=== PATIENT | female | born 1955 | race Caucasian/White ===

== ENCOUNTER 2016-12-09 11:54 | Inpatient (IN) | payer BC ==
[~2016-12-09] VITALS: Ht 157.5 cm; Wt 55.0 kg
[2016-12-09] VITALS (17 sets, daily range): BP systolic 83–100; BP diastolic 49–64; PULSE 83–104; RESP 16–24; TEMP 97.9; Ht 157.5 cm; Wt 55.0 kg
[~2016-12-09 11:54] MED LIST: APIX5TAB PO; HYDR-902 PO; LORA0.5T PO; OMEP20CA16 PO; ONDA4TAB14 PO; TRAM-40 PO
--- NOTE | 2016-12-09 12:12 | ERA ---
ER Documentation Chief Complaint Date/Time DATE: 12/09/16 TIME: 12:12 Chief Complaint SENT BY PMD FOR LOW H&H.Pt ON CHEMO FOR PELVIC CA. ROS All systems reviewed and are negative except as per history of present illness. Medications Home Meds Active Scripts Ondansetron (Ondansetron Odt) 4 Mg Tab.rapdis, 4 MG PO Q6H Y for NAUSEA AND/OR VOMITING, #30 TAB Prov:MALCOLM DÍAZ MD 05/05/16 Hydrocodone/Acetaminophen ([place] 10-325 Tablet) 1 Each Tablet, 1 TAB PO Q6H Y for PAIN, #12 TAB Prov:MALCOLM DÍAZ MD 05/05/16 Apixaban* (Eliquis*) 5 Mg Tablet, 5 MG PO BID for 30 Days, TAB 5 Refills Prov:AMNA LUCERO 04/29/16 Reported Medications Tramadol Hcl* (Ultram*) 50 Mg Tablet, 50 MG PO Q6H Y for PAIN, TAB 05/05/16 Omeprazole* (Omeprazole*) 20 Mg Capsule.dr, 20 MG PO BID, #60 CAP 05/05/16 Lorazepam* (Lorazepam*) 0.5 Mg Tablet, 0.5 MG PO HS Y for ANXIETY, TAB 04/20/16 Allergies Allergies: Coded Allergies: No Known Allergy (Unverified , 09/23/16) PMhx/Soc History of Surgery: Yes (PORT-A-CATH PLACEMENT) Anesthesia Reaction: No Hx Neurological Disorder: No Hx Respiratory Disorders: No Hx Cardiac Disorders: No Hx Psychiatric Problems: No Hx Miscellaneous Medical Probl: Yes ( CERVICAL CANCER ) Hx Alcohol Use: No Hx Substance Use: No Hx Tobacco Use: No Physical Exam Vitals Vital Signs Date Time Temp Pulse Resp B/P Pulse Ox O2 Delivery O2 Flow Rate FiO2 12/09/16 12:02 99.1 121 18 79/50 97 Physical Exam Const: [] Head: Atraumatic Eyes: Normal Conjunctiva ENT: Normal External Ears, Nose and Mouth. Neck: Full range of motion..~ No meningismus. Resp: Clear to auscultation bilaterally Cardio: Regular rate and rhythm, no murmurs Abd: Soft, non tender, non distended. Normal bowel sounds Skin: No petechiae or rashes Back: No midline or flank tenderness Ext: No cyanosis, or edema Neur: Awake and alert Psych: Normal Mood and Affect ILEANA CASON MD Dec 09, 2016 12:12
[2016-12-09] MEDS ORDERED: SOD CHLORIDE 0.9% 250 ML IV ONE (12:15)
[2016-12-09] MEDS ORDERED: SOD CHLORIDE 0.9% 1,000 ML IV ONE (12:30)
[2016-12-09 12:48] LABS: ADD SCAN DIFF NO
[2016-12-09 13:01] LABS: ABNORMAL IP MESSAGE 1; HEMATOCRIT 13.5 % (37.0-47.0); MEAN CORPUSCULAR HEMOGLOBIN 40.5 pg (29.0-33.0); MEAN CORPUSCULAR HGB CONC 33.3 g/dl (32.0-37.0); MEAN CORPUSCULAR VOLUME 121.6 fl (82.0-101.0); RED BLOOD COUNT 1.11 10^6/ul (4.20-5.40); RED CELL DISTRIBUTION WIDTH 16.1 % (11.5-14.5)
[2016-12-09 13:04] LABS: MEAN PLATELET VOLUME 13.8 fl (7.4-10.4)
[2016-12-09 13:08] LABS: HEMOGLOBIN 4.5 g/dl (12.0-16.0); PLATELET COUNT 5 10^3/UL (140-415)
[2016-12-09 13:17] LABS: INR 1.99; PROTIME 22.8 Sec (12.2-14.2); PT RATIO 1.8
[2016-12-09 13:18] LABS: PARTIAL THROMBOPLASTIN TIME 39.8 Sec (25.0-35.0)
[2016-12-09 13:20] LABS: ALBUMIN 3.1 g/dl (3.3-4.9); ALBUMIN/GLOBULIN RATIO 0.83; BILIRUBIN,DIRECT 2.3 mg/dl (0.00-0.20); BILIRUBIN,INDIRECT 1.3 mg/dl (0-1.1); BILIRUBIN,TOTAL 3.6 mg/dl (0.2-1.3); CALCIUM 9.1 mg/dl (8.4-10.2); CREATININE 0.81 mg/dl (0.44-1.00); POTASSIUM 3.5 mmol/L (3.5-5.1); TOTAL PROTEIN 6.8 g/dl (6.1-8.1)
[2016-12-09 13:33] LABS: LYMPHOCYTES # 1.1 10^3/ul (0.8-2.9); MONOCYTE # 0.4 10^3/ul (0.3-0.9); NEUTROPHIL # 7.9 10^3/ul (1.6-7.5); PLATELET ESTIMATE PLT APPEAR DECREASED
[2016-12-09] MEDS ORDERED: ONDA8TAB83 PO (13:48)
[2016-12-09] MEDS ORDERED: CEFEPIME 1GM/50 ML (PMX) 50 ML IVPB ONE (14:00)
--- NOTE | 2016-12-09 15:15 | ERA ---
ER Documentation Chief Complaint Date/Time DATE: 12/09/16 TIME: 14:54 Chief Complaint SENT BY PMD FOR LOW H&H.Pt ON CHEMO FOR PELVIC CA. HPI This 61-year-old female was sent for her primary care doctor by [facility]. Patient has profound weakness is generalized as well as tiredness. She has cervical cancer and last received chemo 1 week ago. She has been having sporadic vaginal bleeding as well. She often has such vaginal bleeding. Last transfusion was 3 months ago. ROS All systems reviewed and are negative except as per history of present illness. Medications Home Meds Reported Medications Ondansetron Hcl* (Ondansetron Hcl*) 8 Mg Tablet, 8 MG PO Q8 Y for NAUSEA AND/OR VOMITING, TAB 12/09/16 Tramadol Hcl* (Ultram*) 50 Mg Tablet, 50 MG PO Q6H Y for PAIN, TAB 05/05/16 Omeprazole* (Omeprazole*) 20 Mg Capsule.dr, 20 MG PO BID, #60 CAP 05/05/16 Lorazepam* (Lorazepam*) 0.5 Mg Tablet, 0.5 MG PO HS Y for ANXIETY, TAB 04/20/16 Discontinued Scripts Ondansetron (Ondansetron Odt) 4 Mg Tab.rapdis, 4 MG PO Q6H Y for NAUSEA AND/OR VOMITING, #30 TAB Prov:MALCOLM DÍAZ MD 05/05/16 Hydrocodone/Acetaminophen ([place] 10-325 Tablet) 1 Each Tablet, 1 TAB PO Q6H Y for PAIN, #12 TAB Prov:MALCOLM DÍAZ MD 05/05/16 Apixaban* (Eliquis*) 5 Mg Tablet, 5 MG PO BID for 30 Days, TAB 5 Refills Prov:AMNA LUCERO 04/29/16 Allergies Allergies: Coded Allergies: No Known Allergy (Unverified , 09/23/16) PMhx/Soc History of Surgery: Yes (PORT-A-CATH PLACEMENT) Anesthesia Reaction: No Hx Neurological Disorder: No Hx Respiratory Disorders: No Hx Cardiac Disorders: No Hx Psychiatric Problems: No Hx Miscellaneous Medical Probl: Yes ( CERVICAL CANCER ) Hx Alcohol Use: No Hx Substance Use: No Hx Tobacco Use: No Smoking Status: Never smoker Physical Exam Vitals Vital Signs Date Time Temp Pulse Resp B/P Pulse Ox O2 Delivery O2 Flow Rate FiO2 12/09/16 14:29 103 17 92/55 100 Room Air 12/09/16 13:37 105 17 95/63 100 Room Air 12/09/16 13:01 103 23 88/54 100 Room Air 12/09/16 12:35 99.0 115 22 88/55 100 Room Air 12/09/16 12:02 99.1 121 18 79/50 97 Physical Exam Const: [] Mild distress, appears ill Head: Atraumatic Eyes: Pale conjunctiva, EOMI, PERRL ENT: Normal External Ears, Nose and Mouth. Neck: Full range of motion..~ No meningismus. Resp: Clear to auscultation bilaterally Cardio: Regular rate and rhythm, no murmurs Abd: Soft, non tender, non distended. Normal bowel sounds Skin: No petechiae or rashes Back: No midline or flank tenderness Ext: No cyanosis, or edema Neur: Awake and alert and oriented 3, no focal deficits Psych: Normal Mood and Affect Result Diagram: 12/09/16 1230 12/09/16 1230 Results 24 hrs Laboratory Tests Test 12/09/16 12:30 White Blood Count 9.410^3/ul Red Blood Count 1.1110^6/ul Hemoglobin 4.5g/dl Hematocrit 13.5% Mean Corpuscular Volume 121.6fl Mean Corpuscular Hemoglobin 40.5pg Mean Corpuscular Hemoglobin Concent 33.3g/dl Red Cell Distribution Width 16.1% Platelet Count 510^3/UL Mean Platelet Volume 13.8fl Neutrophils % 84.0% Lymphocytes % 12.0% Monocytes % 4.0% Nucleated Red Blood Cells % 2.0/100WBC Neutrophils # 7.910^3/ul Lymphocytes # 1.110^3/ul Monocytes # 0.410^3/ul Platelet Estimate PLT APPEAR DECREASED Prothrombin Time 22.8Sec Prothrombin Time Ratio 1.8 INR International Normalized Ratio 1.99 Activated Partial Thromboplast Time 39.8Sec Sodium Level 135mmol/L Potassium Level 3.5mmol/L Chloride Level 101mmol/L Carbon Dioxide Level 19mmol/L Anion Gap 19 Blood Urea Nitrogen 17mg/dl Creatinine 0.81mg/dl Glucose Level 94mg/dl Lactic Acid Level 9.4mmol/L Calcium Level 9.1mg/dl Total Bilirubin 3.6mg/dl Direct Bilirubin 2.30mg/dl Indirect Bilirubin 1.3mg/dl Aspartate Amino Transf (AST/SGOT) 48IU/L Alanine Aminotransferase (ALT/SGPT) 46IU/L Alkaline Phosphatase 244IU/L Total Protein 6.8g/dl Albumin 3.1g/dl Globulin 3.70g/dl Albumin/Globulin Ratio 0.83 Current Medications Medications (Trade) Dose Ordered Sig/Dania Route PRN Reason Start Time Stop Time Status Last Admin Dose Admin Sodium Chloride 1,000 ml @ 1,000 mls/hr Q1H ONCE IV 12/09/16 12:30 12/09/16 13:29 DC 12/09/16 12:43 Sodium Chloride 250 ml @ 0 mls/hr Q0M ONCE IV 12/09/16 12:15 12/09/16 12:17 DC Cefepime HCl (Maxipime 1gm/50 ml (Pmx)) 50 ml @ 100 mls/hr ONCE ONCE IVPB 12/09/16 14:00 12/09/16 14:29 DC Procedures/MDM Severe anemia secondary to combination of bone marrow suppression from chemotherapy as well as vaginal bleeding. Severe thrombocytopenia as well. Patient was initially hypotensive which improved with fluid administration initial blood product administration as well as tachycardic which also improved. She has a lactic acid of 9.6. I do not currently suspect sepsis because the patient is profoundly anemic and lactic acidosis is likely secondary to that as well as the unstable vital signs. However she is immunocompromised to be safe I gave her a dose of cefepime. She will certainly not get the 30 cc/kg of IV fluid because I would certainly cause fluid overload she is receiving so many blood products. She was hydrated with 1 L of normal saline and initially for fluid resuscitation and she is likely dehydrated as well. Ordered 4 units of packed red blood cells and 5 units of platelets. I also called the labor arrest who agrees to see the patient in consult for the vaginal bleeding. I spoke with Dr. Webster who agrees to admit the patient to ICU. Also placed a call to of his son, the patient's oncologist. his son's partner called back and said the patient did not need a radiated blood in this acute setting as she was not a bone marrow transplant patient. Notified blood bank of this who will give additional units as fast as they can. EKG interpretation: Sinus tachycardia rate of 120, normal axis, no ST elevations or depressions suggestive of ischemia, T-wave inversions in the inferior leads suspicious for ischemia. muff winder interpretation: Sinus tachycardia improved with time. No other arrhythmias Critical care time 44 minutes: This includes treatment of severe blood loss anemia, very careful fluid administration, discussion with patient, oncologist, admitting doctor, applications development consultant, multiple discussions with the blood bank, administration of blood products, treatment of unstable vital signs, chart review, multiple visits the patient's bedside to reassess cardiodynamics status. This does not include billable procedures Ultrasound-guided IV insertion note: Indication was that staff was able to start IV lines with a blue each time and was unsuccessful at further attempts. Right upper arm was cleaned with alcohol. Ultrasound guidance was used to easily introduce an 18-gauge angiocatheter to the right basilic vein. There was good blood flow and IV flushed well. Patient tolerated procedure with no complications. Images were not saved because printer was not functional. Departure Diagnosis: Primary Impression: Severe anemia Additional Impressions: Severe thrombocytopenia Acute blood loss anemia Hemorrhagic shock Lactic acidosis Condition: Critical YULIETLAURENCE COVARRUBIAS Dec 09, 2016 15:04
[2016-12-09 16:11] LABS: FIBRIN SPLIT PRODUCT <10 ug/ml (<10)
[2016-12-09] MEDS ORDERED: D5W-0.45 NACL + KCL 20 MEQ 1,000 ML IV SCH (17:26)
[2016-12-09] MEDS ORDERED: NACL 0.9% 3 ML SYG IV SCH (17:30)
[2016-12-09] MEDS ORDERED: ACETAMINOPHEN 650MG/20.3ML CUP PO PRN (17:30)
[2016-12-09] MEDS ORDERED: LORAZEPAM 2 MG INJ IV PRN (17:30)
[2016-12-09] MEDS ORDERED: FERRIC SUBSULFATE 8 GM VIAL TOP SCH (17:30)
[2016-12-09 17:42] LABS: WHITE BLOOD COUNT 9.4 10^3/ul (4.8-10.8)
--- NOTE | 2016-12-09 18:06 | HP ---
DATE OF ADMISSION: 12/09/2016 CHIEF COMPLAINT: The patient sent from PMD office for low hemoglobin and hematocrit. HISTORY OF PRESENT ILLNESS: The patient is an unfortunate 61-year-old female known to me from [facility] admission. The patient with history of cervical cancer was followed by Dr. Ruiz in hematology/ oncology consultation. The patient was undergoing chemotherapy. She stated that her last chemother apy was 8 months ago. The patient was also on Eliquis for deep venous thrombosis of the left lower extremity. The patient was seen in Dr. Ruiz's office and noted to have complaint of vaginal bleedi ng and was anemic. The patient was referred to the emergency room. In the emergency room, the arlin ent's hemoglobin was found to be 4.5, hematocrit 13.5, platelet count was 5. The patient's lactic a baljeet was elevated to 9.4. Temperature was 99.1 on admission. The patient complains of nonproductive cough; however, denies fever and chills at home. Denies any nausea, vomiting; however, complains o f poor appetite. The patient denies any dysuria. The patient was also noted to have hypotension, w as given IV fluids, and currently is undergoing blood product transfusion including packed red blood cells and platelets. The patient will be admitted for further evaluation and management to intensi ve care unit. PAST MEDICAL HISTORY: Per HPI. PAST SURGICAL HISTORY: Status post Port-A-Cath placement in the right chest and status post IVC yaron ter placement by Dr. Cage in 2016. FAMILY HISTORY: Negative for history of cancer. The patient stated that her mom is 94 years old an d is in good health. SOCIAL HISTORY: The patient lives at home with the family. The patient denies any tobacco use, den ies any alcohol use, denies any illicit drug use. ALLERGIES: NO KNOWN ALLERGIES. HOME MEDICATIONS: Include Zofran, Ultram, omeprazole, and Ativan. REVIEW OF SYSTEMS: A 12-point review of systems is negative unless what is mentioned in the HPI. PHYSICAL ASSESSMENT: GENERAL: Cachectic, pale female who currently is awake, alert. VITAL SIGNS: Temperature is 99.0, pulse is 90, blood pressure 87/57, respiratory rate 17, oxygen sa turation 100% on room air. HEENT: Head is atraumatic, normocephalic. Slightly jaundiced sclerae. NECK: Supple, no cervical lymphadenopathy, no thyromegaly. LUNGS: Slightly diminished at the bases. Clear in the upper lobes. There is no rhonchi, wheezes, or rales cholecystectomy. CARDIOVASCULAR: Normal S1, S2. No murmurs, gallops, or rubs noted. ABDOMEN: Slightly protuberant, soft, nondistended, nontender. Bowel sounds present. EXTREMITIES: There is no edema, clubbing, cyanosis. SKIN: Pale. No rash or petechiae noted. NEUROLOGIC: The patient is awake, alert, and oriented x3. No focal deficits noted. LABORATORY DATA: On admission, CBC: White blood cells 9.4, hemoglobin 4.5, hematocrit 13.5, platel ets 5. Chemistry: Sodium is 135, potassium 3.5, chloride 101, carbon dioxide 19, anion gap 19, BUN is 17, creatinine 0.81, glucose 94, lactic acid is 9.4, calcium is 9.1. AST is 48, ALT is 46, geronimo line phosphatase is 244, albumin 3.1. PT is 22.8, INR is 1.99, PTT is 39.8. ASSESSMENT AND PLAN: 1. Acute anemia secondary to blood loss. 2. Severe thrombocytopenia. 3. Vaginal bleeding with shock. 4. Possible sepsis with lactic acidosis. We are going to obtain chest x-ray and urine and blood cu ltures. Dr. Bello will be following the patient in oncology consultation. Continue blood and platelet transfusion and IV fluids. Admit the patient to intensive care unit, and monitor vital signs close ly, pending gynecological evaluation. 5. Severe cachexia with protein calorie malnutrition. We will continue Protonix for peptic ulcer d isease prophylaxis. Further recommendations based on clinical course. Plan of care discussed with Dr. Jackson. Dictated By: AMNA LUCERO SMOKE ROOM OPERATOR for RANI JACKSON MD SR/NTS Conf#: [id number] DID#: [id number]
--- NOTE | 2016-12-09 18:18 | RADRPT ---
PROCEDURE: XR Chest. CLINICAL INDICATION: Clinical suspicion of pneumonia. TECHNIQUE: Single frontal view of the chest was obtained. COMPARISON: Chest x-ray April 20, 2016. FINDINGS: The soft tissues are normal. The bony elements are normal. The heart, cardiomediastinal silhouette and hilar structures are normal. The pulmonary vasculature is normal. There is a left-sided aorta. There is some patchy infiltrate or atelectasis in the lower periphery of the right upper lobe. The re is a infusion port implanted of the right chest wall with the catheter tip in the superior vena c maddy. The costophrenic angles are normal. IMPRESSION: 1. There is consolidative infiltrate in the lower periphery of the right upper lobe suspicious for p neumonia. 2. Infusion catheter over the right chest wall. RPTAT:AAJJ Physician Jerilyn Date Time Electronically viewed and signed by Physician Jerilyn on 12/09/2016 18:17 LORI/
--- NOTE | 2016-12-09 18:18 | QN ---
Documentation Comment DIGITAL PRODUCTION ARTIST consult 61 y.o with advanced stage III vs IVcervical Ca with acute vaginal bleeding with severe anemia and thrombocytopenia. pt on chemo exam- vag exam done and bleeding noted coming from vagina some monsels solution place topically. next and vag packing was soaked with monsels and the vagina was packed a/p 61 y.o with advanced cervical CA with acure vagianl bleeding monsels vag packing placed will discuss case with DR pruitt. sales merchandise associate onc will follow IRA MARINO MD Dec 09, 2016 18:18
--- NOTE | 2016-12-09 19:18 | CONS ---
Date/Time of Note Date/Time of Note DATE: 12/09/16 TIME: 19:03 Assessment/Plan Assessment/Plan Chief Complaint/Hosp Course The patient is a 61 year old female with end stage metastatic cervical cancer followed by Dr. Ruiz, on gemzar alone at 50% dosage, also on procrit 20,000 units SQ q week per Dr. Ruiz. Patient received gemzar on 12/02/16 with 50% dose reduction for thrombocytopenia with platelets < 70 K (67K on 12/01/16). Patient was brought in to clinic today by her daughter by wheelchair and labs from 12/07/16 reviewed that showed Hgb 5.6 and Plt 8 and patient was sent to the ER for blood transfusion. In the ER, patient found to have a hemoglobin of 4.5 with platelets of 5. # Acute anemia likely secondary to vaginal bleeding plus chemotherapy with gemzar on 12/02/16 - Certified Scrum Master consultation was obtained and vaginal exam performed with bleeding noted to be coming from the vagina; monsels vaginal packing was placed with plan to discuss with Dr. Vazquez of agricultural engineer onc. Appreciate recs. - will send LDH, haptoglobin, retic count to evaluate for hemolysis or microangiopathic process but less likely - agree with transfusion of pRBCs # Severe thrombocytopenia, agree with platelets transfusion, secondary to chemotherapy and bone marrow suppression from prior chemotherapy. DIC panel did not suggest DIC with FDP < 10 and fibrinogen 299. May also be exacerbated by possible sepsis. Patient already receiving 2 units of platelets, re-will check platelet count after 2nd unit. # End-stage metastatic cervical cancer, s/p gemzar on 12/02/16 at 50% dose. Bone marrow already affected by prior chemotherapy. - Case discussed with Dr. Ruiz, patient would be appropriate for hospice however family is seeking another opinion at the [facility]. I do agree that further therapy would probably cause more harm than good. Plan to transfuse patient, then likely discharge patient and continue discussion/evaluation of patient's clinical condition as an outpatient and second opinion per family request. Problems: Consultation Date/Type/Reason Admit Date/Time Dec 09, 2016 at 14:49 Date of Consultation: Dec 09, 2016 Type of Consultation: Oncology Reason for Consultation Hgb 4.5, history of metastatic cervical cancer, end stage Hx of Present Illness The patient is a 61 year old female with end stage metastatic cervical cancer followed by Dr. Ruiz, on gemzar alone at 50% dosage, also on procrit 20,000 units SQ q week per Dr. Ruiz. Patient received gemzar on 12/02/16 with 50% dose reduction for thrombocytopenia with platelets < 70 K (67K on 12/01/16). Her daughter reported 2 days of vaginal bleeding with pad drenched with blood with clots. Patient was brought in to clinic today by her daughter by wheelchair and labs from 12/07/16 reviewed that showed Hgb 5.6 and Plt 8 and patient was sent to the ER for blood transfusion. In the ER, patient found to have a hemoglobin of 4.5 with platelets of 5. Certified Scrum Master consultation was obtained and vaginal exam performed with bleeding noted to be coming from the vagina; monsels vaginal packing was placed with plan to discuss with Dr. Vazquez of Certified Scrum Master Onc. The patient is currently receiving her second unit of platelets, and will be receiving 5 units of pRBCs. She reports that she was somewhat confused, possibly from dehydration, but appears better now after having received some blood products. Her BP was initially in the 80s but now increased to 94/60. Past Medical History Per HPI Past Surgical History Status post Port-A-Cath placement in the right chest and status post IVC filter placement by Dr. Cage in 2016. Past Surgical Hx: no surgical history Family History Significant Family History: no pertinent family hx (Negative for history of cancer. The patient stated that her mom is 94 years old and is in good health.) Social History The patient lives at home with the family. The patient denies any tobacco use, denies any alcohol use, denies any illicit drug use. Smoking Status: Never smoker Exam/Review of Systems Vital Signs Vitals Vital Signs Date Time Temp Pulse Resp B/P Pulse Ox O2 Delivery O2 Flow Rate FiO2 12/09/16 19:00 97.7 83 16 87/57 100 Room Air Exam Constitutional: frail, other (cachectic) Psych: no complaints Head: normocephalic Neck: supple Respiratory: clear to auscultation Cardiovascular: regular rate and rhythm Gastrointestinal: non-tender, soft Musculoskeletal: nl extremities to inspection Neurological: SURGERY AIDE II-XII intact Results Result Diagram: 12/09/16 1230 12/09/16 1230 Results 24 hrs Laboratory Tests Test 12/09/16 12:30 12/09/16 15:04 12/09/16 15:05 12/09/16 17:30 White Blood Count 9.4 Red Blood Count 1.11 #L Hemoglobin 4.5 #*L Hematocrit 13.5 #L Mean Corpuscular Volume 121.6 #H Mean Corpuscular Hemoglobin 40.5 #H Mean Corpuscular Hemoglobin Concent 33.3 Red Cell Distribution Width 16.1 H Platelet Count 5 *L Mean Platelet Volume 13.8 #H Neutrophils % 84.0 H Lymphocytes % 12.0 L Monocytes % 4.0 Nucleated Red Blood Cells % 2.0 H Neutrophils # 7.9 H Lymphocytes # 1.1 Monocytes # 0.4 Platelet Estimate PLT APPEAR DECREASED Prothrombin Time 22.8 #H Prothrombin Time Ratio 1.8 INR International Normalized Ratio 1.99 Activated Partial Thromboplast Time 39.8 H Sodium Level 135 Potassium Level 3.5 Chloride Level 101 Carbon Dioxide Level 19 L Anion Gap 19 H Blood Urea Nitrogen 17 Creatinine 0.81 Glucose Level 94 Lactic Acid Level 9.4 *H 8.0 *H 8.2 *H Calcium Level 9.1 Total Bilirubin 3.6 H Direct Bilirubin 2.30 H Indirect Bilirubin 1.3 H Aspartate Amino Transf (AST/SGOT) 48 H Alanine Aminotransferase (ALT/SGPT) 46 Alkaline Phosphatase 244 H Total Protein 6.8 Albumin 3.1 L Globulin 3.70 H Albumin/Globulin Ratio 0.83 Fibrinogen 299.0 Plasma Fibrin Degradation Products <10 Medications Medications Current Medications Ferric Subsulfate 8 gm 8 gm ONCE TOP ; Start 12/09/16 at 17:30; Stop 12/09/16 at 20:00 Potassium Chloride/Dextrose/ Sod Cl (D5-1/2ns + KCl 20 Meq) 1,000 ml @ 80 mls/ hr [id number] IV ; Start 12/09/16 at 17:26 Ondansetron HCl (Zofran Inj) 4 mg Q6H PRN IV NAUSEA AND/OR VOMITING; Start 12/09 at 17:30 Acetaminophen (Tylenol Liquid) 650 mg Q6H PRN PO PAIN LEVEL 1-3 OR FEVER; Start 12/09/16 at 17:30 Morphine Sulfate (morphine) 1 mg Q4H PRN IV PAIN LEVEL 7-10; Start 12/09/16 at 17:30 Lorazepam (Ativan) 0.5 mg Q6 PRN IV ANXIETY; Start 12/09/16 at 17:30 Pantoprazole (Protonix Iv) 40 mg DAILY@06 IV ; Start 12/10/16 at 06:00 TOVIDA MD Dec 09, 2016 19:16
[2016-12-09 23:13] LABS: ADD SCAN DIFF NO
[2016-12-09 23:16] LABS: ABNORMAL IP MESSAGE 1; HEMATOCRIT 17.7 % (37.0-47.0); MEAN CORPUSCULAR HEMOGLOBIN 34.9 pg (29.0-33.0); MEAN CORPUSCULAR HGB CONC 34.5 g/dl (32.0-37.0); MEAN CORPUSCULAR VOLUME 101.1 fl (82.0-101.0); PLATELET COUNT 87 10^3/UL (140-415); RED BLOOD COUNT 1.75 10^6/ul (4.20-5.40); WHITE BLOOD COUNT 7.3 10^3/ul (4.8-10.8)
[2016-12-09 23:21] LABS: HEMOGLOBIN 6.1 g/dl (12.0-16.0)
[2016-12-09 23:41] LABS: CALCIUM 9.1 mg/dl (8.4-10.2); CREATININE 0.67 mg/dl (0.44-1.00); MAGNESIUM 1.5 mg/dl (1.7-2.5); POTASSIUM 3.7 mmol/L (3.5-5.1)
[2016-12-10] VITALS (32 sets, daily range): BP systolic 79–109; BP diastolic 50–72; PULSE 58–112; RESP 16–28
[2016-12-10 00:12] LABS: EOSINOPHILS # 0.1 10^3/ul (0.0-0.5); LYMPHOCYTES # 1.3 10^3/ul (0.8-2.9); MONOCYTE # 0.4 10^3/ul (0.3-0.9); NEUTROPHIL # 5.5 10^3/ul (1.6-7.5); PLATELET ESTIMATE PLT APPEAR DECREASED
[2016-12-10] MEDS: PANTOPRAZOLE 40 MG INJ IV SCH ×2 (06:03→06:04)
[2016-12-10 10:26] LABS: ADD SCAN DIFF NO
[2016-12-10 10:48] LABS: ABNORMAL IP MESSAGE 1; BASOPHILS % 0.1 % (0.0-2.0); CALCIUM 9.2 mg/dl (8.4-10.2); CREATININE 0.7 mg/dl (0.44-1.00); EOSINOPHILS % 0.1 % (0.0-7.0); HEMATOCRIT 28.2 % (37.0-47.0); HEMOGLOBIN 10.1 g/dl (12.0-16.0); LYMPHOCYTES # 1.4 10^3/ul (0.8-2.9); LYMPHOCYTES % 13.8 % (15.0-51.0); MEAN CORPUSCULAR HEMOGLOBIN 33.8 pg (29.0-33.0); MEAN CORPUSCULAR HGB CONC 35.8 g/dl (32.0-37.0); MEAN CORPUSCULAR VOLUME 94.3 fl (82.0-101.0); MEAN PLATELET VOLUME 10.4 fl (7.4-10.4); MONOCYTE # 0.6 10^3/ul (0.3-0.9); NEUTROPHIL # 7.9 10^3/ul (1.6-7.5); NEUTROPHILS % 79.6 % (39.0-77.0); NUCLEATED RED BLOOD CELLS% 0.4 /100WBC (0.0-0.0); PLATELET COUNT 74 10^3/UL (140-415); POTASSIUM 3.4 mmol/L (3.5-5.1); RED BLOOD COUNT 2.99 10^6/ul (4.20-5.40); WHITE BLOOD COUNT 9.9 10^3/ul (4.8-10.8)
[2016-12-10 10:57] LABS: RETICULOCYTE COUNT % 0.8 % (0.5-1.5)
--- NOTE | 2016-12-10 11:24 | PN ---
Date/Time of Note Date/Time of Note DATE: 12/10/16 TIME: 11:20 Assessment/Plan VTE Prophylaxis VTE Prophylaxis Intervention: other Lines/Catheters IV Catheter Type (from [facility]): portacath Urinary Cath still in place: No Assessment/Plan Assessment/Plan - Acute anemia secondary to blood loss. - H/H stable- 10.0 - Hypokalemia- replet K -20 MEQ po X 1, am labs - Hypomagnesium - replet Mag- 1 GM X 1 now - Severe thrombocytopenia. - per oncologist - Vaginal bleeding with shock.- some oozing noted, - Possible sepsis with lactic acidosis. We are going to obtain chest x-ray and urine and blood cultures. Dr. Bello will be following the patient in oncology consultation. Continue blood and platelet transfusion and IV fluids. Admit the patient to intensive care unit, and monitor vital signs closely, pending gynecological evaluation. - Severe cachexia with protein calorie malnutrition. We will continue Protonix for peptic ulcer disease prophylaxis. Further recommendations based on clinical course. Oncology recommended hospice- plan for second opinion from [facility].Plan to transfer to tele Plan of care discussed with Dr. Webster. Subjective 24 Hr Interval Summary Free Text/Dictation alert, vaginal bleeding- oozing reported transfer to tele today Low K AND Mag- will replete, am labs to fu dw staff Respiratory: no complaints Cardiovascular: no complaints Gastrointestinal: no complaints Genitourinary: other (vaginal bleeding) Musculoskeletal: no complaints Exam/Review of Systems Vital Signs Vitals Vital Signs Date Time Temp Pulse Resp B/P Pulse Ox O2 Delivery O2 Flow Rate FiO2 12/10/16 11:00 100 22 104/65 96 12/10/16 10:00 Room Air 12/10/16 08:00 97.9 Intake and Output 12/09/16 12/09/16 12/10/16 15:00 23:00 07:00 Intake Total 1636 ml 700 ml Output Total 320 ml Balance 1636 ml 380 ml Exam Constitutional: alert, oriented Neck: non-tender, supple Respiratory: clear to auscultation, normal air movement Cardiovascular: nl pulses, regular rate and rhythm Gastrointestinal: non-tender, soft Musculoskeletal: nl extremities to inspection Extremities: normal pulses Neurological: nl speech Skin: nl turgor Lymph: nontender Results Result Diagram: 12/10/16 1014 12/10/16 1014 Results 24 hrs Laboratory Tests Test 12/09/16 12:30 12/09/16 15:04 12/09/16 15:05 12/09/16 17:30 White Blood Count 9.4 Red Blood Count 1.11 #L Hemoglobin 4.5 #*L Hematocrit 13.5 #L Mean Corpuscular Volume 121.6 #H Mean Corpuscular Hemoglobin 40.5 #H Mean Corpuscular Hemoglobin Concent 33.3 Red Cell Distribution Width 16.1 H Platelet Count 5 *L Mean Platelet Volume 13.8 #H Neutrophils % 84.0 H Lymphocytes % 12.0 L Monocytes % 4.0 Nucleated Red Blood Cells % 2.0 H Neutrophils # 7.9 H Lymphocytes # 1.1 Monocytes # 0.4 Platelet Estimate PLT APPEAR DECREASED Prothrombin Time 22.8 #H Prothrombin Time Ratio 1.8 INR International Normalized Ratio 1.99 Activated Partial Thromboplast Time 39.8 H Sodium Level 135 Potassium Level 3.5 Chloride Level 101 Carbon Dioxide Level 19 L Anion Gap 19 H Blood Urea Nitrogen 17 Creatinine 0.81 Glucose Level 94 Lactic Acid Level 9.4 *H 8.0 *H 8.2 *H Calcium Level 9.1 Total Bilirubin 3.6 H Direct Bilirubin 2.30 H Indirect Bilirubin 1.3 H Aspartate Amino Transf (AST/SGOT) 48 H Alanine Aminotransferase (ALT/SGPT) 46 Alkaline Phosphatase 244 H Total Protein 6.8 Albumin 3.1 L Globulin 3.70 H Albumin/Globulin Ratio 0.83 Fibrinogen 299.0 Plasma Fibrin Degradation Products <10 Test 12/09/16 20:35 12/09/16 23:08 12/10/16 04:57 12/10/16 10:14 Stool Occult Blood POSITIVE White Blood Count 7.3 # 9.9 # Red Blood Count 1.75 #L 2.99 #L Hemoglobin 6.1 #*L 10.1 #L Hematocrit 17.7 #L 28.2 #L Mean Corpuscular Volume 101.1 H 94.3 Mean Corpuscular Hemoglobin 34.9 H 33.8 H Mean Corpuscular Hemoglobin Concent 34.5 35.8 Red Cell Distribution Width 22.0 #H 20.0 H Platelet Count 87 #L 74 L Mean Platelet Volume 10.0 # 10.4 Neutrophils % 76.0 79.6 H Lymphocytes % 18.0 13.8 L Monocytes % 5.0 6.0 Eosinophils % 1.0 0.1 Neutrophils # 5.5 7.9 H Lymphocytes # 1.3 1.4 Monocytes # 0.4 0.6 Eosinophils # 0.1 0.0 Platelet Estimate PLT APPEAR DECREASED Sodium Level 134 L 134 L Potassium Level 3.7 3.4 L Chloride Level 103 99 Carbon Dioxide Level 22 22 Anion Gap 13 16 Blood Urea Nitrogen 17 16 Creatinine 0.67 0.70 Glucose Level 84 110 Calcium Level 9.1 9.2 Magnesium Level 1.5 L Lab Scanned Report BLOOD TRANSFUSION Basophils % 0.1 Nucleated Red Blood Cells % 0.4 H Basophils # 0.0 Nucleated Red Blood Cells # 0.0 Absolute Reticulocyte Count 0.023 Percent Reticulocyte Count 0.8 Lactic Acid Level 6.0 *H Lactate Dehydrogenase 1361 H Medications Medications Current Medications Ondansetron HCl (Zofran Inj) 4 mg Q6H PRN IV NAUSEA AND/OR VOMITING; Start 12/09 at 17:30 Acetaminophen (Tylenol Liquid) 650 mg Q6H PRN PO PAIN LEVEL 1-3 OR FEVER; Start 12/09/16 at 17:30 Morphine Sulfate (morphine) 1 mg Q4H PRN IV PAIN LEVEL 7-10; Start 12/09/16 at 17:30 Lorazepam (Ativan) 0.5 mg Q6 PRN IV ANXIETY; Start 12/09/16 at 17:30 Pantoprazole (Protonix Iv) 40 mg DAILY@06 IV Last administered on 12/10/16t 06: 03; Admin Dose 40 MG; Start 12/10/16 at 06:00 [place] FINNEY Dec 10, 2016 11:24
[2016-12-10] MEDS ORDERED: POTASSIUM CHLORIDE (SR) 20 MEQ TAB PO STA (11:25)
[2016-12-10] MEDS ORDERED: MAGNESIUM SULFATE 1 GM/D5W 100 ML IVPB ONE (11:30)
[2016-12-10] MEDS ORDERED: FERRIC SUBSULFATE 8 GM VIAL TOP SCH (21:00)
[2016-12-10] MEDS: morphine 2 MG INJ IV PRN (21:23)
--- NOTE | 2016-12-10 22:13 | QN ---
Documentation Comment Gynecology- Laborist Pt states vaginal bleeding has improved. Pain c/w pain meds. States she feels better than she did yesterday. Patient's daughter at bedside and requesting second opinion from Dr. Vazquez. Feels current Embroidery Machine Operator Onc seems overwhelmed with multiple patients and patient's family is interested in what else can be done to help the patient without doing harm. States she knows there are clinical trials that may be able to help her mom. VS 98.3 89/56 99-102 99% on RA Gen: cachectic appearing Abd: soft, thin, nontender Faith: no oozing from vagina seen. monsel's soaked vaginal packing removed and no red blood on packing. unable to visualize vaginal vault with small speculum 2 /2 pt discomfort. able to visualize distal vaginal vault and no active bleeding noted. small amount of packing replaced with small amount of monsels Labs 9.9>10.0 (from 4.5)<74 (from 5) CXR consolidation RUL A/P 61yo multipara with advanced stage III vs IV Cervical CA admitted for management of severe anemia and thrombocytopenia in the setting of acute vaginal bleeding. S/p Chemo with Gemzar 12/02, also receiving Procrit Pt with significant increase in Hgb and plts s/p transfusion Vaginal bleeding has slowed considerably w/packing which was replaced tonight Given late time of rounds today, will defer discussion with Dr. Vazquez, PEOPLESOFT CONSULTANT ONC until the AM FLACA GREENWOOD MD Dec 10, 2016 22:13
[2016-12-11] VITALS (13 sets, daily range): BP systolic 82–101; BP diastolic 50–64; PULSE 88–99; RESP 17–19
[2016-12-11] MEDS: PANTOPRAZOLE 40 MG INJ IV SCH (06:03)
[2016-12-11 09:32] LABS: ADD SCAN DIFF NO
[2016-12-11 09:40] LABS: ABNORMAL IP MESSAGE 1; BASOPHILS % 0.1 % (0.0-2.0); EOSINOPHILS % 0.1 % (0.0-7.0); HEMATOCRIT 28.9 % (37.0-47.0); LYMPHOCYTES # 1.4 10^3/ul (0.8-2.9); LYMPHOCYTES % 14.2 % (15.0-51.0); MEAN CORPUSCULAR HEMOGLOBIN 32.5 pg (29.0-33.0); MEAN CORPUSCULAR HGB CONC 34.6 g/dl (32.0-37.0); MEAN CORPUSCULAR VOLUME 93.8 fl (82.0-101.0); MEAN PLATELET VOLUME 11.5 fl (7.4-10.4); MONOCYTE # 0.7 10^3/ul (0.3-0.9); MONOCYTES % 6.8 % (0.0-11.0); NEUTROPHIL # 7.5 10^3/ul (1.6-7.5); NEUTROPHILS % 78.3 % (39.0-77.0); NUCLEATED RED BLOOD CELLS # 0.1 10^3/ul (0.0-0.0); NUCLEATED RED BLOOD CELLS% 0.5 /100WBC (0.0-0.0); PLATELET COUNT 50 10^3/UL (140-415); RED BLOOD COUNT 3.08 10^6/ul (4.20-5.40); RED CELL DISTRIBUTION WIDTH 20.3 % (11.5-14.5); WHITE BLOOD COUNT 9.6 10^3/ul (4.8-10.8)
[2016-12-11 09:56] LABS: ALBUMIN/GLOBULIN RATIO 0.91
[2016-12-11 09:57] LABS: ALBUMIN 3.2 g/dl (3.3-4.9); BILIRUBIN,DIRECT 5.1 mg/dl (0.00-0.20); BILIRUBIN,TOTAL 7.1 mg/dl (0.2-1.3); CALCIUM 9.6 mg/dl (8.4-10.2); CREATININE 0.6 mg/dl (0.44-1.00); MAGNESIUM 1.6 mg/dl (1.7-2.5); POTASSIUM 3.5 mmol/L (3.5-5.1); TOTAL PROTEIN 6.7 g/dl (6.1-8.1)
--- NOTE | 2016-12-11 13:30 | CONS ---
Date/Time of Note Date/Time of Note DATE: 12/11/16 TIME: 13:24 Assessment/Plan Assessment/Plan Chief Complaint/Hosp Course The patient is a 61 year old female with end stage metastatic cervical cancer followed by Dr. Ruiz, on gemzar alone at 50% dosage, also on procrit 20,000 units SQ q week per Dr. Ruiz. Patient received gemzar on 12/02/16 with 50% dose reduction for thrombocytopenia with platelets < 70 K (67K on 12/01/16). Patient was brought in to clinic today by her daughter by wheelchair and labs from 12/07/16 reviewed that showed Hgb 5.6 and Plt 8 and patient was sent to the ER for blood transfusion. In the ER, patient found to have a hemoglobin of 4.5 with platelets of 5. # Acute anemia likely secondary to vaginal bleeding plus chemotherapy with gemzar on 12/02/16 - Superintendent Of Generation consultation was obtained and vaginal exam performed with bleeding noted to be coming from the vagina; monsels vaginal packing was placed with plan to discuss with Dr. Vazquez of automatic profile sander operator onc. Appreciate recs. Pt with significant increase in Hgb and plts s/p transfusion. Vaginal bleeding has slowed considerably w/ packing. - Pending evaluation by Dr. Vazquez, SWIMMING POOL MAINTENANCE ONC - LDH elevated, haptoglobin pending, retic count inappropriately low. Low suspicion for hemolysis or microangiopathic process but will request peripheral smear review by path tomorrow. Follow up haptoglobin. Elevated LDH likely related to extent of disease. - Hgb now stable at 10.0 status post 4 units pRBCs # Severe thrombocytopenia, secondary to chemotherapy and bone marrow suppression from prior chemotherapy. DIC panel did not suggest DIC with FDP < 10 and fibrinogen 299. May also be exacerbated by possible sepsis. Platelets increased to 87K after 2 unit platelets up from 5K, currently 50K. Continue to monitor. # End-stage metastatic cervical cancer, s/p gemzar on 12/02/16 at 50% dose. Bone marrow already affected by prior chemotherapy. - Case discussed with Dr. Ruiz, patient would be appropriate for hospice however family is seeking another opinion at the [facility]. I do agree that further therapy would probably cause more harm than good. Plan to transfuse patient, then likely discharge patient and continue discussion/evaluation of patient's clinical condition as an outpatient and second opinion per family request. - Dr. Vazquez to evaluate patient today - Patient should follow up with Dr. Ruiz upon discharge. Patient was also on Eliquis for LLE DVT, which is on hold currently. Continue to hold as platelet count is dropping and recent vaginal bleeding, wait for platelet count to toney then rise after chemotherapy on 12/02/16. Patient can follow-up with Dr. Ruiz with repeat labs to determine whether safe to restart. Problems: Consultation Date/Type/Reason Admit Date/Time Dec 09, 2016 at 14:49 Initial Consult Date 12/09/16 Type of Consultation: Oncology 24 HR Interval Summary Free Text/Dictation Patient feeling much better, no vaginal bleeding per patient. Exam/Review of Systems Vital Signs Vitals Vital Signs Date Time Temp Pulse Resp B/P Pulse Ox O2 Delivery O2 Flow Rate FiO2 12/11/16 12:10 98.3 89 17 91/54 91 12/10/16 16:00 Room Air Intake and Output 12/10/16 12/10/16 12/11/16 15:00 23:00 07:00 Intake Total 440 ml 480 ml Output Total 200 ml Balance 240 ml 480 ml Results Result Diagram: 12/11/16 0904 12/11/16 0904 Results 24 hrs Laboratory Tests Test 12/11/16 05:26 12/11/16 09:04 Lab Scanned Report BLOOD TRANSFUSION White Blood Count 9.6 Red Blood Count 3.08 L Hemoglobin 10.0 L Hematocrit 28.9 L Mean Corpuscular Volume 93.8 Mean Corpuscular Hemoglobin 32.5 Mean Corpuscular Hemoglobin Concent 34.6 Red Cell Distribution Width 20.3 H Platelet Count 50 #L Mean Platelet Volume 11.5 H Neutrophils % 78.3 H Lymphocytes % 14.2 L Monocytes % 6.8 Eosinophils % 0.1 Basophils % 0.1 Nucleated Red Blood Cells % 0.5 H Neutrophils # 7.5 Lymphocytes # 1.4 Monocytes # 0.7 Eosinophils # 0.0 Basophils # 0.0 Nucleated Red Blood Cells # 0.1 H Sodium Level 133 L Potassium Level 3.5 Chloride Level 100 Carbon Dioxide Level 20 L Anion Gap 17 H Blood Urea Nitrogen 12 Creatinine 0.60 Glucose Level 96 Calcium Level 9.6 Magnesium Level 1.6 L Total Bilirubin 7.1 #H Direct Bilirubin 5.10 #H Indirect Bilirubin 2.0 H Aspartate Amino Transf (AST/SGOT) 34 Alanine Aminotransferase (ALT/SGPT) 32 Alkaline Phosphatase 209 H Total Protein 6.7 Albumin 3.2 L Globulin 3.50 H Albumin/Globulin Ratio 0.91 Medications Medications Current Medications Ondansetron HCl (Zofran Inj) 4 mg Q6H PRN IV NAUSEA AND/OR VOMITING; Start 12/09 at 17:30 Acetaminophen (Tylenol Liquid) 650 mg Q6H PRN PO PAIN LEVEL 1-3 OR FEVER; Start 12/09/16 at 17:30 Morphine Sulfate (morphine) 1 mg Q4H PRN IV PAIN LEVEL 7-10 Last administered on 12/10/16 21:23; Admin Dose 1 MG; Start 12/09/16 at 17:30 Lorazepam (Ativan) 0.5 mg Q6 PRN IV ANXIETY; Start 12/09/16 at 17:30 Pantoprazole (Protonix Iv) 40 mg DAILY@06 IV Last administered on 12/11/16 06: 03; Admin Dose 40 MG; Start 12/10/16 at 06:00 VIDA RODRIGUEZ MD Dec 11, 2016 13:30
--- NOTE | 2016-12-11 17:16 | CONS ---
DATE OF ADMISSION: 12/09/2016 DATE OF CONSULTATION: 12/11/2016 TYPE OF CONSULTATION: Obstetrics. HISTORY: This is an unfortunate 61-year-old white female with the progressive metastatic stage IV cervical cancer. This was diagnosed in 2016. I do not have the detail, but it sounds like an issue was rectal carcinoma, but then it is confirmed to be cervix. She has now received radiation, it has only been treated with systemic chemo. The patient has diffuse liver metastases and now has been getting palliative chemotherapy with a single agent gemcitabine. The patient was found to have profound thrombocytopenia and anemia on Monday and she also has significant vaginal bleeding. She was admitted to [facility] and she will receive platelet transfusion and PRBC transfusion. Her platelets on arrival was 5000, hemoglobin 4.5 and now is somewhat corrected. The laborist was consulted and patient had vaginal packing. It was replaced yesterday. Bleeding has stopped and her hemoglobin is now up to 10 and platelet up to 50,000. Her total bilirubin, however, is at 7.1. PAST MEDICAL HISTORY: Significant for above. SURGICAL HISTORY: IVC filter and a port placement. ALLERGIES: NO KNOWN DRUG ALLERGIES. SOCIAL HISTORY: The patient lives with her family. PHYSICAL EXAMINATION: GENERAL: The patient is cachectic and jaundice. Blood pressure is low, 90/60. LUNGS: Clear. ABDOMEN: Soft. CARDIAC: Regular. EXTREMITIES: Unremarkable. PELVIC: Deferred due to packing placed yesterday. IMPRESSION: Progressive stage V cervical cancer, now with vaginal bleeding with thrombocytopenia. RECOMMENDATIONS: 1. I will discuss detail with Dr. Ruiz. 2. I recommend immediate radiation to stop the bleeding. 3. I will plan on removing her packing tomorrow, and do a thorough vaginal exam as well, but hopefully she can start radiation tomorrow. 4. I will discuss further with the primary care team and also Dr. Ruiz. Dictated By: JAMAAL DUMONT/JOAN Conf#: [id number] DID#: [id number] MTDD
--- NOTE | 2016-12-11 18:11 | PN ---
Date/Time of Note Date/Time of Note DATE: 12/11/16 TIME: 18:03 Assessment/Plan Lines/Catheters IV Catheter Type (from [facility]): Central Line Urinary Cath still in place: No Assessment/Plan Assessment/Plan - Acute anemia secondary to blood loss. - H/H stable- 10.0 - Hypokalemia- resolved - Hypomagnesium - replet Mag- 1 GM X 1 now - Severe thrombocytopenia. - per oncologist - Vaginal bleeding with shock.- some oozing noted, - Possible sepsis with lactic acidosis. We are going to obtain chest x-ray and urine and blood cultures. Dr. Bello will be following the patient in oncology consultation. Continue blood and platelet transfusion and IV fluids. Admit the patient to intensive care unit, and monitor vital signs closely, pending gynecological evaluation. - Severe cachexia with protein calorie malnutrition. We will continue Protonix for peptic ulcer disease prophylaxis. Further recommendations based on clinical course. Oncology recommended hospice- plan for second opinion from [facility].Plan to transfer to [facility] Plan of care discussed with Dr. Webster. Subjective 24 Hr Interval Summary Free Text/Dictation nad, vaginal packing intact per staff- no vaginal bleeding reported. Also per staff- Dr Rosa is planning for radiation therapy for patient. Respiratory: no complaints Cardiovascular: no complaints Gastrointestinal: no complaints Genitourinary: no complaints Musculoskeletal: no complaints Skin: no complaints Neurologic: no complaints Exam/Review of Systems Vital Signs Vitals Vital Signs Date Time Temp Pulse Resp B/P Pulse Ox O2 Delivery O2 Flow Rate FiO2 12/11/16 16:18 97.1 90 18 97/64 98 12/10/16 16:00 Room Air Intake and Output 12/10/16 12/10/16 12/11/16 15:00 23:00 07:00 Intake Total 440 ml 480 ml Output Total 200 ml Balance 240 ml 480 ml Exam Constitutional: alert, well developed Neck: non-tender Respiratory: clear to auscultation, normal air movement Cardiovascular: nl pulses, regular rate and rhythm Gastrointestinal: non-tender, soft Extremities: normal pulses Neurological: nl speech Lymph: nontender Results Result Diagram: 12/11/16 0904 12/11/16 0904 Results 24 hrs Laboratory Tests Test 12/11/16 05:26 12/11/16 09:04 Lab Scanned Report BLOOD TRANSFUSION White Blood Count 9.6 Red Blood Count 3.08 L Hemoglobin 10.0 L Hematocrit 28.9 L Mean Corpuscular Volume 93.8 Mean Corpuscular Hemoglobin 32.5 Mean Corpuscular Hemoglobin Concent 34.6 Red Cell Distribution Width 20.3 H Platelet Count 50 #L Mean Platelet Volume 11.5 H Neutrophils % 78.3 H Lymphocytes % 14.2 L Monocytes % 6.8 Eosinophils % 0.1 Basophils % 0.1 Nucleated Red Blood Cells % 0.5 H Neutrophils # 7.5 Lymphocytes # 1.4 Monocytes # 0.7 Eosinophils # 0.0 Basophils # 0.0 Nucleated Red Blood Cells # 0.1 H Sodium Level 133 L Potassium Level 3.5 Chloride Level 100 Carbon Dioxide Level 20 L Anion Gap 17 H Blood Urea Nitrogen 12 Creatinine 0.60 Glucose Level 96 Calcium Level 9.6 Magnesium Level 1.6 L Total Bilirubin 7.1 #H Direct Bilirubin 5.10 #H Indirect Bilirubin 2.0 H Aspartate Amino Transf (AST/SGOT) 34 Alanine Aminotransferase (ALT/SGPT) 32 Alkaline Phosphatase 209 H Total Protein 6.7 Albumin 3.2 L Globulin 3.50 H Albumin/Globulin Ratio 0.91 Medications Medications Current Medications Ondansetron HCl (Zofran Inj) 4 mg Q6H PRN IV NAUSEA AND/OR VOMITING; Start 12/09 at 17:30 Acetaminophen (Tylenol Liquid) 650 mg Q6H PRN PO PAIN LEVEL 1-3 OR FEVER; Start 12/09/16 at 17:30 Morphine Sulfate (morphine) 1 mg Q4H PRN IV PAIN LEVEL 7-10 Last administered on 12/10/16 21:23; Admin Dose 1 MG; Start 12/09/16 at 17:30 Lorazepam (Ativan) 0.5 mg Q6 PRN IV ANXIETY; Start 12/09/16 at 17:30 Pantoprazole (Protonix Iv) 40 mg DAILY@06 IV Last administered on 12/11/16 06: 03; Admin Dose 40 MG; Start 12/10/16 at 06:00 [place] FINNEY Dec 11, 2016 18:11
[2016-12-11] MEDS ORDERED: MAGNESIUM SULFATE 1 GM/D5W 100 ML IVPB ONE (18:30)
[2016-12-12] VITALS (11 sets, daily range): BP systolic 94–110; BP diastolic 55–68; PULSE 85–101; RESP 16–20
[2016-12-12] MEDS: PANTOPRAZOLE 40 MG INJ IV SCH (06:21)
[2016-12-12 08:01] LABS: ADD SCAN DIFF NO
[2016-12-12 08:12] LABS: ABNORMAL IP MESSAGE 1; EOSINOPHILS % 0.1 % (0.0-7.0); HEMATOCRIT 28.2 % (37.0-47.0); HEMOGLOBIN 9.8 g/dl (12.0-16.0); LYMPHOCYTES # 1.6 10^3/ul (0.8-2.9); LYMPHOCYTES % 19.2 % (15.0-51.0); MEAN CORPUSCULAR HEMOGLOBIN 33.1 pg (29.0-33.0); MEAN CORPUSCULAR HGB CONC 34.8 g/dl (32.0-37.0); MEAN CORPUSCULAR VOLUME 95.3 fl (82.0-101.0); MEAN PLATELET VOLUME 11.6 fl (7.4-10.4); MONOCYTE # 0.7 10^3/ul (0.3-0.9); NEUTROPHIL # 5.9 10^3/ul (1.6-7.5); NUCLEATED RED BLOOD CELLS% 0.5 /100WBC (0.0-0.0); PLATELET COUNT 35 10^3/UL (140-415); RED BLOOD COUNT 2.96 10^6/ul (4.20-5.40); WHITE BLOOD COUNT 8.2 10^3/ul (4.8-10.8)
[2016-12-12 09:08] LABS: CALCIUM 9.9 mg/dl (8.4-10.2); CREATININE 0.58 mg/dl (0.44-1.00); MAGNESIUM 1.7 mg/dl (1.7-2.5); POTASSIUM 3.1 mmol/L (3.5-5.1)
--- NOTE | 2016-12-12 10:42 | CONS ---
Date/Time of Note Date/Time of Note DATE: 12/12/16 TIME: 10:39 Assessment/Plan Assessment/Plan Chief Complaint/Hosp Course The patient is a 61 year old female with end stage metastatic cervical cancer followed by Dr. Ruiz, on gemzar alone at 50% dosage, also on procrit 20,000 units SQ q week per Dr. Ruiz. Patient received gemzar on 12/02/16 with 50% dose reduction for thrombocytopenia with platelets < 70 K (67K on 12/01/16). Patient was brought in to clinic today by her daughter by wheelchair and labs from 12/07/16 reviewed that showed Hgb 5.6 and Plt 8 and patient was sent to the ER for blood transfusion. In the ER, patient found to have a hemoglobin of 4.5 with platelets of 5. # Acute anemia likely secondary to vaginal bleeding plus chemotherapy with gemzar on 12/02/16 - Guitar Instructor consultation was obtained and vaginal exam performed with bleeding noted to be coming from the vagina; monsels vaginal packing was placed with plan to discuss with Dr. Vazquez of still cleaner onc. Appreciate recs. Pt with significant increase in Hgb and plts s/p transfusion. Vaginal bleeding has slowed considerably w/ packing. - LDH elevated, haptoglobin pending, retic count inappropriately low. Low suspicion for hemolysis or microangiopathic process but will request peripheral smear review by path tomorrow. Follow up haptoglobin. Elevated LDH likely related to extent of disease. Pending peripheral smear with path review. - Hgb now stable around 10.0 status post 4 units pRBCs - Per Dr. Vazquez, may need radiation to stop the bleeding. Dr. Vazquez will pull the packing and probably replace. Will consult radiation oncology - pending recs from Dr. George. # Severe thrombocytopenia, secondary to chemotherapy and bone marrow suppression from prior chemotherapy. DIC panel did not suggest DIC with FDP < 10 and fibrinogen 299. May also be exacerbated by possible sepsis. Platelets increased to 87K after 2 unit platelets up from 5K, 50K yesterday, currently 35K. Continue to monitor. May continue to decrease prior to increasing s/p chemotherapy. # End-stage metastatic cervical cancer, s/p gemzar on 12/02/16 at 50% dose. Bone marrow already affected by prior chemotherapy. - Case discussed with Dr. Ruiz, patient would be appropriate for hospice however family is seeking another opinion at the [facility]. I do agree that further therapy would probably cause more harm than good. Plan to transfuse patient, then likely discharge patient and continue discussion/evaluation of patient's clinical condition as an outpatient and second opinion per family request. - appreciate Dr. Vazquez recs. Pending recs from Dr. George. - Patient should follow up with Dr. Ruiz upon discharge. Patient was also on Eliquis for LLE DVT, which is on hold currently. Continue to hold as platelet count is dropping and recent vaginal bleeding, wait for platelet count to toney then rise after chemotherapy on 12/02/16. Patient can follow-up with Dr. Ruiz with repeat labs to determine whether safe to restart. Problems: Consultation Date/Type/Reason Admit Date/Time Dec 09, 2016 at 14:49 Initial Consult Date 12/09/16 Type of Consultation: Oncology 24 HR Interval Summary Free Text/Dictation Patient doing well today, no vaginal bleeding at this time. Exam/Review of Systems Vital Signs Vitals Vital Signs Date Time Temp Pulse Resp B/P Pulse Ox O2 Delivery O2 Flow Rate FiO2 12/12/16 08:52 97 12/12/16 07:36 98.6 18 94/55 100 12/10/16 16:00 Room Air Intake and Output 12/11/16 12/11/16 12/12/16 15:00 23:00 07:00 Intake Total 800 ml 500 ml Balance 800 ml 500 ml Exam Constitutional: frail, other (cachectic) Psych: no complaints Head: normocephalic Neck: supple Respiratory: clear to auscultation Cardiovascular: regular rate and rhythm Gastrointestinal: non-tender, soft Musculoskeletal: nl extremities to inspection Neurological: TERMINOLOGIST II-XII intact Results Result Diagram: 12/12/16 0656 12/12/16 0656 Results 24 hrs Laboratory Tests Test 12/12/16 06:56 White Blood Count 8.2 Red Blood Count 2.96 L Hemoglobin 9.8 L Hematocrit 28.2 L Mean Corpuscular Volume 95.3 Mean Corpuscular Hemoglobin 33.1 H Mean Corpuscular Hemoglobin Concent 34.8 Red Cell Distribution Width 20.0 H Platelet Count 35 #L Mean Platelet Volume 11.6 H Neutrophils % 72.0 Lymphocytes % 19.2 Monocytes % 8.0 Eosinophils % 0.1 Basophils % 0.0 Nucleated Red Blood Cells % 0.5 H Neutrophils # 5.9 Lymphocytes # 1.6 Monocytes # 0.7 Eosinophils # 0.0 Basophils # 0.0 Nucleated Red Blood Cells # 0.0 Sodium Level 136 Potassium Level 3.1 L Chloride Level 100 Carbon Dioxide Level 22 Anion Gap 17 H Blood Urea Nitrogen 10 Creatinine 0.58 Glucose Level 84 Calcium Level 9.9 Magnesium Level 1.7 Medications Medications Current Medications Ondansetron HCl (Zofran Inj) 4 mg Q6H PRN IV NAUSEA AND/OR VOMITING; Start 12/09 at 17:30 Acetaminophen (Tylenol Liquid) 650 mg Q6H PRN PO PAIN LEVEL 1-3 OR FEVER; Start 12/09/16 at 17:30 Morphine Sulfate (morphine) 1 mg Q4H PRN IV PAIN LEVEL 7-10 Last administered on 12/10/16 21:23; Admin Dose 1 MG; Start 12/09/16 at 17:30 Lorazepam (Ativan) 0.5 mg Q6 PRN IV ANXIETY; Start 12/09/16 at 17:30 Pantoprazole (Protonix Iv) 40 mg DAILY@06 IV Last administered on 12/12/16 06: 21; Admin Dose 40 MG; Start 12/10/16 at 06:00 TOVIDA MD Dec 12, 2016 10:42
--- NOTE | 2016-12-12 14:37 | PN ---
Date/Time of Note Date/Time of Note DATE: 12/12/16 TIME: 14:24 Assessment/Plan VTE Prophylaxis VTE Prophylaxis Intervention: SCD's Lines/Catheters IV C[facility]ter Type (from [facility] Nini Cath Urinary Cath still in place: No Assessment/Plan Chief Complaint/Hosp Course Patient denies pain denies shortness of breath, stable hemoglobin, patient remains hypotensive denies any dizziness at rest, potassium and magnesium replacement ordered. ASSESSMENT AND PLAN: - End-stage metastatic cervical cancer, status post chemotherapy. Dr. Bello is following in oncology consultation. Pending radiation oncology consultation Dr. George. - Acute anemia secondary to blood loss and chemotherapy. Status post blood transfusion. - Severe thrombocytopenia. - S/p vaginal bleeding, status post vaginal packing. Dr. Vazquez is following in gynecologic oncology consultation. - Severe cachexia with protein calorie malnutrition. - History of left lower extremity DVT, Eliquis is held due to bleeding. Further recommendations based on clinical course. Plan of care discussed with Dr. Webster. Problems: Exam/Review of Systems Vital Signs Vitals Vital Signs Date Time Temp Pulse Resp B/P Pulse Ox O2 Delivery O2 Flow Rate FiO2 12/12/16 12:46 85 12/12/16 12:01 97.9 17 99/64 97 12/10/16 16:00 Room Air Intake and Output 12/11/16 12/11/16 12/12/16 14:59 22:59 06:59 Intake Total 800 ml 500 ml Balance 800 ml 500 ml Exam Constitutional: alert, frail, oriented, other (Cachectic) Head: normocephalic Neck: supple Respiratory: normal air movement Cardiovascular: nl pulses Gastrointestinal: non-tender, soft Extremities: normal pulses Results Result Diagram: 12/12/16 0656 12/12/16 0656 Results 24 hrs Laboratory Tests Test 12/12/16 06:56 White Blood Count 8.2 Red Blood Count 2.96 L Hemoglobin 9.8 L Hematocrit 28.2 L Mean Corpuscular Volume 95.3 Mean Corpuscular Hemoglobin 33.1 H Mean Corpuscular Hemoglobin Concent 34.8 Red Cell Distribution Width 20.0 H Platelet Count 35 #L Mean Platelet Volume 11.6 H Neutrophils % 72.0 Lymphocytes % 19.2 Monocytes % 8.0 Eosinophils % 0.1 Basophils % 0.0 Nucleated Red Blood Cells % 0.5 H Neutrophils # 5.9 Lymphocytes # 1.6 Monocytes # 0.7 Eosinophils # 0.0 Basophils # 0.0 Nucleated Red Blood Cells # 0.0 Sodium Level 136 Potassium Level 3.1 L Chloride Level 100 Carbon Dioxide Level 22 Anion Gap 17 H Blood Urea Nitrogen 10 Creatinine 0.58 Glucose Level 84 Calcium Level 9.9 Magnesium Level 1.7 Medications Medications Current Medications Ondansetron HCl (Zofran Inj) 4 mg Q6H PRN IV NAUSEA AND/OR VOMITING; Start 12/09 at 17:30 Acetaminophen (Tylenol Liquid) 650 mg Q6H PRN PO PAIN LEVEL 1-3 OR FEVER; Start 12/09/16 at 17:30 Morphine Sulfate (morphine) 1 mg Q4H PRN IV PAIN LEVEL 7-10 Last administered on 12/10/16 21:23; Admin Dose 1 MG; Start 12/09/16 at 17:30 Lorazepam (Ativan) 0.5 mg Q6 PRN IV ANXIETY; Start 12/09/16 at 17:30 Pantoprazole (Protonix Iv) 40 mg DAILY@06 IV Last administered on 12/12/16 06: 21; Admin Dose 40 MG; Start 12/10/16 at 06:00 AMNA LUCERO Dec 12, 2016 14:34
[2016-12-12] MEDS ORDERED: MAGNESIUM SULFATE 2 GM/50 ML 50 ML IVPB ONE (15:00)
[2016-12-12] MEDS ORDERED: POTASSIUM CHLORIDE 20 MEQ POWDER FOR ORAL SOLN PO ONE (15:00)
[2016-12-12] MEDS: morphine 2 MG INJ IV PRN (18:01)
--- NOTE | 2016-12-12 18:01 | QN ---
Documentation Comment HH stable with minimal bleeding dr grey to remove packing today for radiatoin a/p advanced cervical CA bleeding stable IRA MARINO MD Dec 12, 2016 18:01
--- NOTE | 2016-12-12 20:00 | PN ---
Date/Time of Note Date/Time of Note DATE: 12/12/16 TIME: 19:57 Assessment/Plan VTE Prophylaxis VTE Prophylaxis Intervention: other Lines/Catheters IV Catheter Type (from [facility]): Nini Cath Urinary Cath still in place: No Assessment/Plan Chief Complaint/Hosp Course No bleeding after correction of thrombocytopenia Problems: Assessment/Plan Will review records with Dr. Ruiz regarding next step. Will discuss with Dr. Amor regarding palliative XRT to pelvis and fistula. Subjective 24 Hr Interval Summary Free Text/Dictation No bleeding, Platele at 35K Exam/Review of Systems Vital Signs Vitals Vital Signs Date Time Temp Pulse Resp B/P Pulse Ox O2 Delivery O2 Flow Rate FiO2 12/12/16 16:33 89 12/12/16 15:56 97.3 18 110/63 98 12/10/16 16:00 Room Air Intake and Output 12/11/16 12/11/16 12/12/16 15:00 23:00 07:00 Intake Total 800 ml 500 ml Balance 800 ml 500 ml Exam Genitourinary - Female: other Additional Comments Packing removed. Rectovaginal fistula and tumor. NO active bleeding. Results Result Diagram: 12/12/16 0656 12/12/16 0656 Results 24 hrs Laboratory Tests Test 12/12/16 06:56 White Blood Count 8.2 Red Blood Count 2.96 L Hemoglobin 9.8 L Hematocrit 28.2 L Mean Corpuscular Volume 95.3 Mean Corpuscular Hemoglobin 33.1 H Mean Corpuscular Hemoglobin Concent 34.8 Red Cell Distribution Width 20.0 H Platelet Count 35 #L Mean Platelet Volume 11.6 H Neutrophils % 72.0 Lymphocytes % 19.2 Monocytes % 8.0 Eosinophils % 0.1 Basophils % 0.0 Nucleated Red Blood Cells % 0.5 H Neutrophils # 5.9 Lymphocytes # 1.6 Monocytes # 0.7 Eosinophils # 0.0 Basophils # 0.0 Nucleated Red Blood Cells # 0.0 Sodium Level 136 Potassium Level 3.1 L Chloride Level 100 Carbon Dioxide Level 22 Anion Gap 17 H Blood Urea Nitrogen 10 Creatinine 0.58 Glucose Level 84 Calcium Level 9.9 Magnesium Level 1.7 Medications Medications Current Medications Ondansetron HCl (Zofran Inj) 4 mg Q6H PRN IV NAUSEA AND/OR VOMITING; Start 12/09 at 17:30 Acetaminophen (Tylenol Liquid) 650 mg Q6H PRN PO PAIN LEVEL 1-3 OR FEVER; Start 12/09/16 at 17:30 Morphine Sulfate (morphine) 1 mg Q4H PRN IV PAIN LEVEL 7-10 Last administered on 12/12/16 18:01; Admin Dose 1 MG; Start 12/09/16 at 17:30 Lorazepam (Ativan) 0.5 mg Q6 PRN IV ANXIETY; Start 12/09/16 at 17:30 Pantoprazole (Protonix Iv) 40 mg DAILY@06 IV Last administered on 12/12/16 06: 21; Admin Dose 40 MG; Start 12/10/16 at 06:00 CHRISTY ZARATE MD Dec 12, 2016 20:00
[2016-12-13] VITALS (12 sets, daily range): BP systolic 99–106; BP diastolic 56–70; PULSE 57–100; RESP 16–20
[2016-12-13] MEDS: PANTOPRAZOLE 40 MG INJ IV SCH (05:48)
[2016-12-13 08:25] LABS: ADD SCAN DIFF NO
[2016-12-13 08:30] LABS: ABNORMAL IP MESSAGE 1; HEMOGLOBIN 9.1 g/dl (12.0-16.0); MEAN PLATELET VOLUME 12.1 fl (7.4-10.4); NUCLEATED RED BLOOD CELLS% 0.4 /100WBC (0.0-0.0); RED BLOOD COUNT 2.68 10^6/ul (4.20-5.40); RED CELL DISTRIBUTION WIDTH 19.8 % (11.5-14.5); WHITE BLOOD COUNT 6.9 10^3/ul (4.8-10.8)
[2016-12-13 08:37] LABS: PLATELET COUNT 23 10^3/UL (140-415)
[2016-12-13 09:07] LABS: CALCIUM 9.8 mg/dl (8.4-10.2); CREATININE 0.56 mg/dl (0.44-1.00); POTASSIUM 3.5 mmol/L (3.5-5.1)
[2016-12-13 10:31] LABS: LYMPHOCYTES # 1.2 10^3/ul (0.8-2.9); MONOCYTE # 0.8 10^3/ul (0.3-0.9); PLATELET ESTIMATE PLT APPEAR DECREASED
--- NOTE | 2016-12-13 10:58 | QN ---
Documentation Comment December 13, 2069 Hospital visit This patient is a 61 years old with advanced stage III to IV cervical cancer who is under palliative treatment was admitted with hemoglobin of 4.3 due to vaginal bleeding as well as a platelet count of only 13,000. She is being followed by gynecology:oncologist Dr. Vazquez as well as Dr. Mohan awning hanger and radiation therapy team. With blood and platelet transfusion her hemoglobin and hematocrit came up. Vaginal packing removed She has very little bleeding vaginally today The plan is underway to transfer her to a hospice NAVI MANZO MD Dec 13, 2016 10:58
--- NOTE | 2016-12-13 14:03 | CONS ---
Date/Time of Note Date/Time of Note DATE: 12/13/16 TIME: 13:55 Assessment/Plan Assessment/Plan Chief Complaint/Hosp Course The patient is a 61 year old female with end stage metastatic cervical cancer who last received on gemzar on 12/02/16 at 50% dosage. Pt is also on procrit 20, 000 units SQ q week per Dr. Zaldivar. Patient was brought in to clinic today by her daughter by wheelchair and labs from 12/07/16 reviewed that showed Hgb 5.6 and Plt 8 and patient was sent to the ER for blood transfusion. In the ER, patient found to have a hemoglobin of 4.5 with platelets of 5. Pt has since had blood and platelet transfusion # Acute anemia likely secondary to vaginal bleeding plus chemotherapy with gemzar on 12/02/16 - Woodworker Helper consultation was obtained and vaginal exam performed with bleeding noted to be coming from the vagina; vaginal packing was placed and removed. vaginal bleeding appears to have subsided. Pt with significant increase in Hgb and plts s/p transfusion. - LDH elevated, haptoglobin pending, retic count inappropriately low. Low suspicion for hemolysis or microangiopathic process but will request peripheral smear review by path tomorrow. Follow up haptoglobin. Elevated LDH likely related to extent of disease. Pending peripheral smear with path review. - Hgb now stable around 10.0 status post 4 units pRBCs - Dr Amor to start radiation # Severe thrombocytopenia, secondary to chemotherapy and bone marrow suppression from prior chemotherapy. DIC panel did not suggest DIC with FDP < 10 and fibrinogen 299. May also be exacerbated by possible sepsis. Platelets increased to 87K after 2 unit platelets up from 5K, -platelets are still <30K -will monitor for now and transfuse if patient begins to bleed again # End-stage metastatic cervical cancer, s/p gemzar on 12/02/16 at 50% dose. Bone marrow already affected by prior chemotherapy. - Case discussed with Dr. Zaldivar, patient would be appropriate for hospice however family is seeking another opinion at the [facility]. I do agree that further therapy would probably cause more harm than good. Plan to transfuse patient, then likely discharge patient and continue discussion/evaluation of patient's clinical condition as an outpatient and second opinion per family request. - appreciate Dr. Vazquez recs. Pending recs from Dr. George. #h/o LLE DVT -continue to hold Eliquis as platelets are less than 50K and she recently had a vaginal bleed Approximately 40 min were spent at patient's bedside and in coordination of her care Problems: (1) Cervical cancer Status: Chronic (2) Hemorrhagic shock Status: Acute Consultation Date/Type/Reason Admit Date/Time Dec 09, 2016 at 14:49 Initial Consult Date 12/09/16 Type of Consultation: Oncology Reason for Consultation cervical cancer Referring Provider: RANI JACKSON MD 24 HR Interval Summary Free Text/Dictation patient had the vaginal packing removed which showed very little blood. . she states she feels better since the blood transfusion Exam/Review of Systems Vital Signs Vitals Vital Signs Date Time Temp Pulse Resp B/P Pulse Ox O2 Delivery O2 Flow Rate FiO2 12/13/16 12:42 100 12/13/16 11:40 98.1 18 104/66 98 12/10/16 16:00 Room Air Intake and Output 12/12/16 12/12/16 12/13/16 15:00 23:00 07:00 Intake Total 650 ml 500 ml Balance 650 ml 500 ml Exam Constitutional: alert, frail, oriented Head: atraumatic, normocephalic Eyes: nl conjunctiva ENMT: nl external ears & nose Neck: non-tender, supple Respiratory: clear to auscultation, normal air movement Cardiovascular: regular rate and rhythm Gastrointestinal: soft Musculoskeletal: nl extremities to inspection Results Result Diagram: 12/13/16 0709 12/13/16 0704 Results 24 hrs Laboratory Tests Test 12/13/16 07:04 12/13/16 07:09 Sodium Level 133 L Potassium Level 3.5 Chloride Level 101 Carbon Dioxide Level 22 Anion Gap 14 Blood Urea Nitrogen 9 Creatinine 0.56 Glucose Level 81 Calcium Level 9.8 White Blood Count 6.9 Red Blood Count 2.68 L Hemoglobin 9.1 L Hematocrit 26.0 L Mean Corpuscular Volume 97.0 Mean Corpuscular Hemoglobin 34.0 H Mean Corpuscular Hemoglobin Concent 35.0 Red Cell Distribution Width 19.8 H Platelet Count 23 #*L Mean Platelet Volume 12.1 H Neutrophils % 72.0 Lymphocytes % 17.0 Monocytes % 11.0 Eosinophils % 0.0 Basophils % 0.0 Nucleated Red Blood Cells % 0.4 H Neutrophils # 5.0 Lymphocytes # 1.2 Monocytes # 0.8 Eosinophils # 0.0 Basophils # 0.0 Nucleated Red Blood Cells # 0.0 Platelet Estimate PLT APPEAR DECREASED Medications Medications Current Medications Ondansetron HCl (Zofran Inj) 4 mg Q6H PRN IV NAUSEA AND/OR VOMITING; Start 12/09 at 17:30 Acetaminophen (Tylenol Liquid) 650 mg Q6H PRN PO PAIN LEVEL 1-3 OR FEVER; Start 12/09/16 at 17:30 Morphine Sulfate (morphine) 1 mg Q4H PRN IV PAIN LEVEL 7-10 Last administered on 12/12/16 18:01; Admin Dose 1 MG; Start 12/09/16 at 17:30 Lorazepam (Ativan) 0.5 mg Q6 PRN IV ANXIETY; Start 12/09/16 at 17:30 Pantoprazole (Protonix Iv) 40 mg DAILY@06 IV Last administered on 12/13/16 05: 48; Admin Dose 40 MG; Start 12/10/16 at 06:00 DIONISIO ZALDIVAR M.D. Dec 13, 2016 14:03
--- NOTE | 2016-12-13 15:14 | PN ---
Date/Time of Note Date/Time of Note DATE: 12/13/16 TIME: 15:10 Assessment/Plan VTE Prophylaxis VTE Prophylaxis Intervention: SCD's Lines/Catheters IV [facility] Type (from [facility] Nini Cath Urinary Cath still in place: No Assessment/Plan Chief Complaint/Hosp Course Patient with minimal vaginal bleeding status post vaginal packing removal, continue to monitor patient's hemoglobin and hematocrit, patient with persistent thrombocytopenia, pain is well controlled. ASSESSMENT AND PLAN: - End-stage metastatic cervical cancer, status post chemotherapy. Dr. Bello is following in oncology consultation. Pending radiation oncology consultation Dr. George. - Acute anemia secondary to blood loss and chemotherapy. Status post blood transfusion. - Severe thrombocytopenia. - S/p vaginal bleeding, status post vaginal packing. Dr. Vazquez is following in gynecologic oncology consultation. - Severe cachexia with protein calorie malnutrition. - History of left lower extremity DVT, Eliquis is held due to bleeding. Case management is working on arrangements for transportation to radiation oncology. Further recommendations based on clinical course. Plan of care discussed with Dr. Webster. Problems: Exam/Review of Systems Vital Signs Vitals Vital Signs Date Time Temp Pulse Resp B/P Pulse Ox O2 Delivery O2 Flow Rate FiO2 12/13/16 12:42 100 12/13/16 11:40 98.1 18 104/66 98 12/10/16 16:00 Room Air Intake and Output 12/12/16 12/12/16 12/13/16 15:00 23:00 07:00 Intake Total 650 ml 500 ml Balance 650 ml 500 ml Exam Constitutional: alert, frail, oriented, other (Cachectic) Head: normocephalic Neck: supple Respiratory: normal air movement Cardiovascular: nl pulses Gastrointestinal: non-tender, soft Extremities: normal pulses Results Result Diagram: 12/13/16 0709 12/13/16 0704 Results 24 hrs Laboratory Tests Test 12/13/16 07:04 12/13/16 07:09 Sodium Level 133 L Potassium Level 3.5 Chloride Level 101 Carbon Dioxide Level 22 Anion Gap 14 Blood Urea Nitrogen 9 Creatinine 0.56 Glucose Level 81 Calcium Level 9.8 White Blood Count 6.9 Red Blood Count 2.68 L Hemoglobin 9.1 L Hematocrit 26.0 L Mean Corpuscular Volume 97.0 Mean Corpuscular Hemoglobin 34.0 H Mean Corpuscular Hemoglobin Concent 35.0 Red Cell Distribution Width 19.8 H Platelet Count 23 #*L Mean Platelet Volume 12.1 H Neutrophils % 72.0 Lymphocytes % 17.0 Monocytes % 11.0 Eosinophils % 0.0 Basophils % 0.0 Nucleated Red Blood Cells % 0.4 H Neutrophils # 5.0 Lymphocytes # 1.2 Monocytes # 0.8 Eosinophils # 0.0 Basophils # 0.0 Nucleated Red Blood Cells # 0.0 Platelet Estimate PLT APPEAR DECREASED Medications Medications Current Medications Ondansetron HCl (Zofran Inj) 4 mg Q6H PRN IV NAUSEA AND/OR VOMITING; Start 12/09 at 17:30 Acetaminophen (Tylenol Liquid) 650 mg Q6H PRN PO PAIN LEVEL 1-3 OR FEVER; Start 12/09/16 at 17:30 Morphine Sulfate (morphine) 1 mg Q4H PRN IV PAIN LEVEL 7-10 Last administered on 12/12/16 18:01; Admin Dose 1 MG; Start 12/09/16 at 17:30 Lorazepam (Ativan) 0.5 mg Q6 PRN IV ANXIETY; Start 12/09/16 at 17:30 Pantoprazole (Protonix Iv) 40 mg DAILY@06 IV Last administered on 12/13/16 05: 48; Admin Dose 40 MG; Start 12/10/16 at 06:00 AMNA LUCERO Dec 13, 2016 15:14
[2016-12-13] MEDS: morphine 2 MG INJ IV PRN (18:40)
[2016-12-14] VITALS (11 sets, daily range): BP systolic 91–120; BP diastolic 56–67; PULSE 98–109; RESP 15–18
[2016-12-14] MEDS: PANTOPRAZOLE 40 MG INJ IV SCH (05:45)
[2016-12-14 08:26] LABS: ADD SCAN DIFF NO
[2016-12-14 08:29] LABS: ABNORMAL IP MESSAGE 1; HEMATOCRIT 28.1 % (37.0-47.0); HEMOGLOBIN 9.7 g/dl (12.0-16.0); MEAN CORPUSCULAR HGB CONC 34.5 g/dl (32.0-37.0); MEAN CORPUSCULAR VOLUME 98.6 fl (82.0-101.0); MEAN PLATELET VOLUME 13.7 fl (7.4-10.4); RED BLOOD COUNT 2.85 10^6/ul (4.20-5.40); RED CELL DISTRIBUTION WIDTH 20.5 % (11.5-14.5); WHITE BLOOD COUNT 5.8 10^3/ul (4.8-10.8)
[2016-12-14 08:39] LABS: PLATELET COUNT 24 10^3/UL (140-415)
[2016-12-14 09:25] LABS: CREATININE 0.55 mg/dl (0.44-1.00); POTASSIUM 3.4 mmol/L (3.5-5.1)
[2016-12-14] MEDS ORDERED: MAGNESIUM HYDROXIDE 30ML CUP PO PRN (10:30)
[2016-12-14] MEDS: ONDANSETRON 4 MG INJ IV PRN (11:21)
--- NOTE | 2016-12-14 14:03 | CONS ---
Date/Time of Note Date/Time of Note DATE: 12/14/16 TIME: 14:00 Assessment/Plan Assessment/Plan Chief Complaint/Hosp Course The patient is a 61 year old female with end stage metastatic cervical cancer who last received on gemzar on 12/02/16 at 50% dosage. Pt is also on procrit 20, 000 units SQ q week per Dr. Zaldivar. Patient was brought in to clinic today by her daughter by wheelchair and labs from 12/07/16 reviewed that showed Hgb 5.6 and Plt 8 and patient was sent to the ER for blood transfusion. In the ER, patient found to have a hemoglobin of 4.5 with platelets of 5. Pt has since had blood and platelet transfusion # Acute anemia likely secondary to vaginal bleeding plus chemotherapy with gemzar on 12/02/16 - Software Systems Architect consultation was obtained and vaginal exam performed with bleeding noted to be coming from the vagina; vaginal packing was placed and removed. vaginal bleeding appears to have subsided. Pt with significant increase in Hgb and plts s/p transfusion. - LDH elevated which is likely secondary to underlying malignancy - Hgb now stable around 10.0 status post 4 units pRBCs - Dr Amor to start radiation # Severe thrombocytopenia, secondary to chemotherapy and bone marrow suppression from prior chemotherapy. No e/o DIC or TTP -platelets are still <30K -will monitor for now and transfuse if patient begins to bleed again # End-stage metastatic cervical cancer, s/p gemzar on 12/02/16 at 50% dose. Bone marrow already affected by prior chemotherapy. - Case discussed with Dr. Zaldivar, patient would be appropriate for hospice however family is seeking another opinion at the [facility]. I do agree that further therapy would probably cause more harm than good. Plan to transfuse patient, then likely discharge patient and continue discussion/evaluation of patient's clinical condition as an outpatient and second opinion per family request. - as stated above will proceed with XRT with Dr. Amor #h/o LLE DVT -continue to hold Eliquis as platelets are less than 50K and she recently had a vaginal bleed Approximately 40 min were spent at patient's bedside and in coordination of her care Problems: Consultation Date/Type/Reason Admit Date/Time Dec 09, 2016 at 14:49 Initial Consult Date 12/09/16 Type of Consultation: Oncology Reason for Consultation metastatic cervical cancer Referring Provider: RANI JACKSON MD 24 HR Interval Summary Free Text/Dictation no vaginal bleeding overnight. feels better after the blood transfusion Exam/Review of Systems Vital Signs Vitals Vital Signs Date Time Temp Pulse Resp B/P Pulse Ox O2 Delivery O2 Flow Rate FiO2 12/14/16 12:23 109 12/14/16 11:46 98.0 16 99/59 99 12/10/16 16:00 Room Air Intake and Output 12/13/16 12/13/16 12/14/16 15:00 23:00 07:00 Intake Total 350 ml 303 ml Balance 350 ml 303 ml Exam Constitutional: alert, oriented Psych: no complaints Head: normocephalic Eyes: nl conjunctiva ENMT: nl external ears & nose Neck: non-tender, supple Respiratory: clear to auscultation Cardiovascular: regular rate and rhythm Gastrointestinal: soft Musculoskeletal: nl extremities to inspection, nl gait and stance Extremities: normal pulses Results Result Diagram: 12/14/16 0723 12/14/16 0723 Results 24 hrs Laboratory Tests Test 12/14/16 07:23 White Blood Count 5.8 Red Blood Count 2.85 L Hemoglobin 9.7 L Hematocrit 28.1 L Mean Corpuscular Volume 98.6 Mean Corpuscular Hemoglobin 34.0 H Mean Corpuscular Hemoglobin Concent 34.5 Red Cell Distribution Width 20.5 H Platelet Count 24 *L Mean Platelet Volume 13.7 H Sodium Level 134 L Potassium Level 3.4 L Chloride Level 98 Carbon Dioxide Level 23 Anion Gap 16 Blood Urea Nitrogen 7 Creatinine 0.55 Glucose Level 91 Calcium Level 10.0 Medications Medications Current Medications Ondansetron HCl (Zofran Inj) 4 mg Q6H PRN IV NAUSEA AND/OR VOMITING Last administered on 12/14/16 11:21; Admin Dose 4 MG; Start 12/09/16 at 17:30 Acetaminophen (Tylenol Liquid) 650 mg Q6H PRN PO PAIN LEVEL 1-3 OR FEVER; Start 12/09/16 at 17:30 Morphine Sulfate (morphine) 1 mg Q4H PRN IV PAIN LEVEL 7-10 Last administered on 12/13/16 18:40; Admin Dose 1 MG; Start 12/09/16 at 17:30 Lorazepam (Ativan) 0.5 mg Q6 PRN IV ANXIETY; Start 12/09/16 at 17:30 Pantoprazole (Protonix Iv) 40 mg DAILY@06 IV Last administered on 12/14/16 05: 45; Admin Dose 40 MG; Start 12/10/16 at 06:00 Magnesium Hydroxide (Milk Of Mag) 30 ml DAILY PRN PO CONSTIPATION Last administered on 12/14/16 11:07; Admin Dose 30 ML; Start 12/14/16 at 10:30 DIONISIO ZALDIVAR M.D. Dec 14, 2016 14:03
--- NOTE | 2016-12-14 18:53 | PN ---
Date/Time of Note Date/Time of Note DATE: 12/14/16 TIME: 18:50 Assessment/Plan VTE Prophylaxis VTE Prophylaxis Intervention: SCD's Lines/Catheters IV Catheter Type (from [facility]): quynh cath Urinary Cath still in place: No Assessment/Plan Chief Complaint/Hosp Course Patient looks comfortable on current medication regimen, stable vital signs, stable hemoglobin. ASSESSMENT AND PLAN: - End-stage metastatic cervical cancer, status post chemotherapy. Dr. Bello is following in oncology consultation. Pending radiation oncology consultation Dr. George. - Acute anemia secondary to blood loss and chemotherapy. Status post blood transfusion. - Severe thrombocytopenia. - S/p vaginal bleeding, status post vaginal packing. Dr. Vazquez is following in gynecologic oncology consultation. - Severe cachexia with protein calorie malnutrition. - History of left lower extremity DVT, Eliquis is held due to bleeding. Case management is working on arrangements for transportation to radiation oncology. Further recommendations based on clinical course. Plan of care discussed with Dr. Webster. Problems: Exam/Review of Systems Vital Signs Vitals Vital Signs Date Time Temp Pulse Resp B/P Pulse Ox O2 Delivery O2 Flow Rate FiO2 12/14/16 15:45 98.3 102 15 91/58 97 12/10/16 16:00 Room Air Intake and Output 12/13/16 12/13/16 12/14/16 15:00 23:00 07:00 Intake Total 350 ml 303 ml Balance 350 ml 303 ml Exam Constitutional: alert, frail, oriented, other (Cachectic) Head: normocephalic Neck: supple Respiratory: normal air movement Cardiovascular: nl pulses Gastrointestinal: non-tender, soft Extremities: normal pulses Results Result Diagram: 12/14/16 0723 12/14/16 0723 Results 24 hrs Laboratory Tests Test 12/14/16 07:23 12/14/16 14:50 White Blood Count 5.8 Red Blood Count 2.85 L Hemoglobin 9.7 L Hematocrit 28.1 L Mean Corpuscular Volume 98.6 Mean Corpuscular Hemoglobin 34.0 H Mean Corpuscular Hemoglobin Concent 34.5 Red Cell Distribution Width 20.5 H Platelet Count 24 *L Mean Platelet Volume 13.7 H Sodium Level 134 L Potassium Level 3.4 L Chloride Level 98 Carbon Dioxide Level 23 Anion Gap 16 Blood Urea Nitrogen 7 Creatinine 0.55 Glucose Level 91 Calcium Level 10.0 Lactic Acid Level 7.8 *H Medications Medications Current Medications Ondansetron HCl (Zofran Inj) 4 mg Q6H PRN IV NAUSEA AND/OR VOMITING Last administered on 12/14/16 11:21; Admin Dose 4 MG; Start 12/09/16 at 17:30 Acetaminophen (Tylenol Liquid) 650 mg Q6H PRN PO PAIN LEVEL 1-3 OR FEVER; Start 12/09/16 at 17:30 Morphine Sulfate (morphine) 1 mg Q4H PRN IV PAIN LEVEL 7-10 Last administered on 12/13/16 18:40; Admin Dose 1 MG; Start 12/09/16 at 17:30 Lorazepam (Ativan) 0.5 mg Q6 PRN IV ANXIETY; Start 12/09/16 at 17:30 Pantoprazole (Protonix Iv) 40 mg DAILY@06 IV Last administered on 12/14/16 05: 45; Admin Dose 40 MG; Start 12/10/16 at 06:00 Magnesium Hydroxide (Milk Of Mag) 30 ml DAILY PRN PO CONSTIPATION Last administered on 12/14/16 11:07; Admin Dose 30 ML; Start 12/14/16 at 10:30 AMNA LUCERO Dec 14, 2016 18:53
[2016-12-14] MEDS: morphine 2 MG INJ IV PRN (22:42)
[2016-12-15] VITALS (7 sets, daily range): BP systolic 93–112; BP diastolic 56–88; RESP 15–18
[2016-12-15] MEDS: PANTOPRAZOLE 40 MG INJ IV SCH (05:56)
[2016-12-15 07:46] LABS: ADD SCAN DIFF NO
[2016-12-15 07:55] LABS: ABNORMAL IP MESSAGE 1; BASOPHILS % 0.2 % (0.0-2.0); EOSINOPHILS % 0.2 % (0.0-7.0); HEMATOCRIT 28.1 % (37.0-47.0); HEMOGLOBIN 9.5 g/dl (12.0-16.0); LYMPHOCYTES # 1.4 10^3/ul (0.8-2.9); LYMPHOCYTES % 25.8 % (15.0-51.0); MEAN CORPUSCULAR HEMOGLOBIN 33.6 pg (29.0-33.0); MEAN CORPUSCULAR HGB CONC 33.8 g/dl (32.0-37.0); MEAN CORPUSCULAR VOLUME 99.3 fl (82.0-101.0); MEAN PLATELET VOLUME 12.4 fl (7.4-10.4); MONOCYTE # 0.8 10^3/ul (0.3-0.9); MONOCYTES % 14.2 % (0.0-11.0); NEUTROPHIL # 3.2 10^3/ul (1.6-7.5); NEUTROPHILS % 58.9 % (39.0-77.0); NUCLEATED RED BLOOD CELLS # 0.1 10^3/ul (0.0-0.0); NUCLEATED RED BLOOD CELLS% 1.1 /100WBC (0.0-0.0); RED BLOOD COUNT 2.83 10^6/ul (4.20-5.40); RED CELL DISTRIBUTION WIDTH 20.6 % (11.5-14.5); WHITE BLOOD COUNT 5.5 10^3/ul (4.8-10.8)
[2016-12-15 08:02] LABS: PLATELET COUNT 30 10^3/UL (140-415)
[2016-12-15 08:26] LABS: CALCIUM 10.4 mg/dl (8.4-10.2); CREATININE 0.56 mg/dl (0.44-1.00); POTASSIUM 3.2 mmol/L (3.5-5.1)
[2016-12-15] MEDS: ONDANSETRON 4 MG INJ IV PRN ×2 (10:19→21:02)
[2016-12-15] MEDS: morphine 2 MG INJ IV PRN ×2 (12:16→18:36)
--- NOTE | 2016-12-15 14:55 | CONS ---
Date/Time of Note Date/Time of Note DATE: 12/15/16 TIME: 14:52 Assessment/Plan Assessment/Plan Chief Complaint/Hosp Course The patient is a 61 year old female with end stage metastatic cervical cancer who last received on gemzar on 12/02/16 at 50% dosage. Pt is also on procrit 20, 000 units SQ q week per Dr. Zaldivar. Patient was brought in to clinic today by her daughter by wheelchair and labs from 12/07/16 reviewed that showed Hgb 5.6 and Plt 8 and patient was sent to the ER for blood transfusion. In the ER, patient found to have a hemoglobin of 4.5 with platelets of 5. Pt has since had blood and platelet transfusion # Acute anemia likely secondary to vaginal bleeding plus chemotherapy with gemzar on 12/02/16 - to start XRT today - Tax Compliance Representative consultation was obtained and vaginal exam performed with bleeding noted to be coming from the vagina; vaginal packing was placed and removed. vaginal bleeding appears to have subsided. Pt with significant increase in Hgb and plts s/p transfusion. - LDH elevated which is likely secondary to underlying malignancy - Hgb now stable around 10.0 status post 4 units pRBCs # Severe thrombocytopenia, secondary to chemotherapy and bone marrow suppression from prior chemotherapy. No e/o DIC or TTP -platelets are 30K -will monitor for now and transfuse if patient begins to bleed again # End-stage metastatic cervical cancer, s/p gemzar on 12/02/16 at 50% dose. Bone marrow already affected by prior chemotherapy. - Case discussed extensively with daughter and the patient, and explained hospice would be appropriate. however family is seeking another opinion at the [facility]. I do agree that further therapy would probably cause more harm than good. Plan to transfuse patient, then likely discharge patient and continue discussion/evaluation of patient's clinical condition as an outpatient and second opinion per family request. - as stated above will proceed with XRT with Dr. Amor #h/o LLE DVT -continue to hold Eliquis as platelets are less than 50K and she recently had a vaginal bleed Approximately 40 min were spent at patient's bedside and in coordination of her care Problems: Consultation Date/Type/Reason Admit Date/Time Dec 09, 2016 at 14:49 Initial Consult Date 12/09/16 Type of Consultation: Oncology Reason for Consultation pt to start XRT this morning. no vaginal bleeding Referring Provider: RANI JACKSON MD Exam/Review of Systems Vital Signs Vitals Vital Signs Date Time Temp Pulse Resp B/P Pulse Ox O2 Delivery O2 Flow Rate FiO2 12/15/16 11:34 98.2 113 18 93/56 98 Intake and Output 12/14/16 12/14/16 12/15/16 14:59 22:59 06:59 Intake Total 800 ml 400 ml Balance 800 ml 400 ml Exam Constitutional: alert, frail, oriented Psych: no complaints Head: normocephalic Eyes: nl conjunctiva ENMT: nl external ears & nose Neck: non-tender, supple Respiratory: clear to auscultation, normal air movement Cardiovascular: nl pulses, regular rate and rhythm Gastrointestinal: soft Musculoskeletal: nl extremities to inspection Results Result Diagram: 12/15/16 0712/15/16 0705 Results 24 hrs Laboratory Tests Test 12/15/16 07:05 White Blood Count 5.5 Red Blood Count 2.83 L Hemoglobin 9.5 L Hematocrit 28.1 L Mean Corpuscular Volume 99.3 Mean Corpuscular Hemoglobin 33.6 H Mean Corpuscular Hemoglobin Concent 33.8 Red Cell Distribution Width 20.6 H Platelet Count 30 #L Mean Platelet Volume 12.4 H Neutrophils % 58.9 Lymphocytes % 25.8 Monocytes % 14.2 H Eosinophils % 0.2 Basophils % 0.2 Nucleated Red Blood Cells % 1.1 H Neutrophils # 3.2 Lymphocytes # 1.4 Monocytes # 0.8 Eosinophils # 0.0 Basophils # 0.0 Nucleated Red Blood Cells # 0.1 H Sodium Level 136 Potassium Level 3.2 L Chloride Level 98 Carbon Dioxide Level 23 Anion Gap 18 H Blood Urea Nitrogen 8 Creatinine 0.56 Glucose Level 85 Calcium Level 10.4 H Medications Medications Current Medications Ondansetron HCl (Zofran Inj) 4 mg Q6H PRN IV NAUSEA AND/OR VOMITING Last administered on 12/15/16 10:19; Admin Dose 4 MG; Start 12/09/16 at 17:30 Acetaminophen (Tylenol Liquid) 650 mg Q6H PRN PO PAIN LEVEL 1-3 OR FEVER; Start 12/09/16 at 17:30 Morphine Sulfate (morphine) 1 mg Q4H PRN IV PAIN LEVEL 7-10 Last administered on 12/15/16 12:16; Admin Dose 1 MG; Start 12/09/16 at 17:30 Lorazepam (Ativan) 0.5 mg Q6 PRN IV ANXIETY; Start 12/09/16 at 17:30 Pantoprazole (Protonix Iv) 40 mg DAILY@06 IV Last administered on 12/15/16 05: 56; Admin Dose 40 MG; Start 12/10/16 at 06:00 Magnesium Hydroxide (Milk Of Mag) 30 ml DAILY PRN PO CONSTIPATION Last administered on 12/14/16 11:07; Admin Dose 30 ML; Start 12/14/16 at 10:30 DIONISIO ZALDIVAR M.D. Dec 15, 2016 14:55
[2016-12-15] MEDS: DEXTROSE 5%-0.45% NACL 1,000 ML IV SCH (15:58)
[2016-12-15] MEDS ORDERED: POTASSIUM CHLORIDE 20 MEQ in SOD CHLORIDE 0.9% 100 ML IVPB ONE (18:30)
--- NOTE | 2016-12-15 20:15 | PN ---
Date/Time of Note Date/Time of Note DATE: 12/15/16 TIME: 20:14 Assessment/Plan Lines/Catheters IV C[facility]ter Type (from [facility]): port a cath Urinary Cath still in place: No Assessment/Plan Assessment/Plan - End-stage metastatic cervical cancer, status post chemotherapy. Dr. Bello is following in oncology consultation. Pending radiation oncology consultation Dr. George. - Acute anemia secondary to blood loss and chemotherapy. Status post blood transfusion. - Severe thrombocytopenia. - S/p vaginal bleeding, status post vaginal packing. Dr. Vazquez is following in gynecologic oncology consultation. - Severe cachexia with protein calorie malnutrition. - History of left lower extremity DVT, Eliquis is held due to bleeding. Case management is working on arrangements for transportation to radiation oncology. Further recommendations based on clinical course. Plan of care discussed with Dr. Webster. Subjective 24 Hr Interval Summary Free Text/Dictation resting, feels better, scheduled for Radiation treatment am, dw staff. Respiratory: no complaints Cardiovascular: no complaints Gastrointestinal: no complaints Genitourinary: no complaints Exam/Review of Systems Vital Signs Vitals Vital Signs Date Time Temp Pulse Resp B/P Pulse Ox O2 Delivery O2 Flow Rate FiO2 12/15/16 19:38 98.5 114 15 112/61 98 Intake and Output 12/14/16 12/14/16 12/15/16 15:00 23:00 07:00 Intake Total 800 ml 400 ml Balance 800 ml 400 ml Exam Constitutional: alert, frail, oriented Respiratory: clear to auscultation, normal air movement Cardiovascular: nl pulses, regular rate and rhythm Gastrointestinal: non-tender, soft Musculoskeletal: nl extremities to inspection Extremities: normal pulses Neurological: nl mental status, nl speech Lymph: nontender Results Result Diagram: 12/15/1670412/15/16704 Results 24 hrs Laboratory Tests Test 12/15/16 07:05 White Blood Count 5.5 Red Blood Count 2.83 L Hemoglobin 9.5 L Hematocrit 28.1 L Mean Corpuscular Volume 99.3 Mean Corpuscular Hemoglobin 33.6 H Mean Corpuscular Hemoglobin Concent 33.8 Red Cell Distribution Width 20.6 H Platelet Count 30 #L Mean Platelet Volume 12.4 H Neutrophils % 58.9 Lymphocytes % 25.8 Monocytes % 14.2 H Eosinophils % 0.2 Basophils % 0.2 Nucleated Red Blood Cells % 1.1 H Neutrophils # 3.2 Lymphocytes # 1.4 Monocytes # 0.8 Eosinophils # 0.0 Basophils # 0.0 Nucleated Red Blood Cells # 0.1 H Sodium Level 136 Potassium Level 3.2 L Chloride Level 98 Carbon Dioxide Level 23 Anion Gap 18 H Blood Urea Nitrogen 8 Creatinine 0.56 Glucose Level 85 Calcium Level 10.4 H Medications Medications Current Medications Ondansetron HCl (Zofran Inj) 4 mg Q6H PRN IV NAUSEA AND/OR VOMITING Last administered on 12/15/16 10:19; Admin Dose 4 MG; Start 12/09/16 at 17:30 Acetaminophen (Tylenol Liquid) 650 mg Q6H PRN PO PAIN LEVEL 1-3 OR FEVER; Start 12/09/16 at 17:30 Morphine Sulfate (morphine) 1 mg Q4H PRN IV PAIN LEVEL 7-10 Last administered on 12/15/16 18:36; Admin Dose 1 MG; Start 12/09/16 at 17:30 Lorazepam (Ativan) 0.5 mg Q6 PRN IV ANXIETY; Start 12/09/16 at 17:30 Pantoprazole (Protonix Iv) 40 mg DAILY@06 IV Last administered on 12/15/16 05: 56; Admin Dose 40 MG; Start 12/10/16 at 06:00 Magnesium Hydroxide 30 ml 30 ml DAILY PRN PO CONSTIPATION Last administered on 12/14/16 11:07; Admin Dose 30 ML; Start 12/14/16 at 10:30 Dextrose/Sodium Chloride 1,000 ml @ 50 mls/hr Q20H IV Last administered on 12/15 15:58; Admin Dose 50 MLS/HR; Start 12/15/16 at 16:00 Potassium Chloride/Sodium Chloride (KCl/NS) 110 ml @ 55 mls/hr ONCE ONCE IVPB Last administered on 12/15/16 20:05; Admin Dose 55 MLS/HR; Start 12/15/16 at 18 :30; Stop 12/15/16 at 20:29 [place] FINNEY Dec 15, 2016 20:15
[2016-12-15] MEDS ORDERED: CEPASTAT LOZENGE MT PRN (22:00)
[2016-12-15] MEDS ORDERED: HYDROCODONE/HOMATROPINE 5ML CUP PO PRN (22:00)
[2016-12-16 04:00] VITALS: BP 98/71; RESP 15
[2016-12-16] MEDS: PANTOPRAZOLE 40 MG INJ IV SCH (06:18)
[2016-12-16 07:43] VITALS: BP 101/68; RESP 18
[2016-12-16 08:02] LABS: ADD SCAN DIFF NO
[2016-12-16 08:11] LABS: ABNORMAL IP MESSAGE 1; BASOPHILS % 0.2 % (0.0-2.0); EOSINOPHILS % 0.2 % (0.0-7.0); HEMATOCRIT 26.3 % (37.0-47.0); HEMOGLOBIN 9.1 g/dl (12.0-16.0); LYMPHOCYTES # 1.1 10^3/ul (0.8-2.9); LYMPHOCYTES % 21.9 % (15.0-51.0); MEAN CORPUSCULAR HEMOGLOBIN 34.5 pg (29.0-33.0); MEAN CORPUSCULAR HGB CONC 34.6 g/dl (32.0-37.0); MEAN CORPUSCULAR VOLUME 99.6 fl (82.0-101.0); MEAN PLATELET VOLUME 13.3 fl (7.4-10.4); MONOCYTE # 0.8 10^3/ul (0.3-0.9); MONOCYTES % 14.6 % (0.0-11.0); NEUTROPHIL # 3.2 10^3/ul (1.6-7.5); NEUTROPHILS % 62.5 % (39.0-77.0); NUCLEATED RED BLOOD CELLS% 0.6 /100WBC (0.0-0.0); RED BLOOD COUNT 2.64 10^6/ul (4.20-5.40); WHITE BLOOD COUNT 5.2 10^3/ul (4.8-10.8)
[2016-12-16 08:22] LABS: PLATELET COUNT 31 10^3/UL (140-415)
[2016-12-16 08:41] LABS: CALCIUM 10.1 mg/dl (8.4-10.2); CREATININE 0.51 mg/dl (0.44-1.00); POTASSIUM 3.3 mmol/L (3.5-5.1)
[2016-12-16] MEDS: ONDANSETRON 4 MG INJ IV PRN ×2 (09:06→23:42)
[2016-12-16 11:34] VITALS: BP 102/66; RESP 18
[2016-12-16] MEDS: DEXTROSE 5%-0.45% NACL 1,000 ML IV SCH (13:41)
[2016-12-16] MEDS: D5-NS + KCL 20 MEQ 1,000 ML IV SCH (15:06)
[2016-12-16 15:33] VITALS: BP 107/67; RESP 18
[2016-12-16] MEDS ORDERED: POTASSIUM CHLORIDE 30 MEQ in DEXTROSE 5% 250 ML IVPB ONE (16:00)
--- NOTE | 2016-12-16 16:34 | CONS ---
Date/Time of Note Date/Time of Note DATE: 12/16/16 TIME: 16:30 Assessment/Plan Assessment/Plan Chief Complaint/Hosp Course The patient is a 61 year old female with end stage metastatic cervical cancer who last received on gemzar on 12/02/16 at 50% dosage. Pt is also on procrit 20, 000 units SQ q week per Dr. Zaldivar. Patient was brought in to clinic today by her daughter by wheelchair and labs from 12/07/16 reviewed that showed Hgb 5.6 and Plt 8 and patient was sent to the ER for blood transfusion. In the ER, patient found to have a hemoglobin of 4.5 with platelets of 5. Pt has since had blood and platelet transfusion # Acute anemia likely secondary to vaginal bleeding plus chemotherapy with gemzar on 12/02/16 - cont XRT. this may be continued as an out patient - Mds Rn consultation was obtained and vaginal exam performed with bleeding noted to be coming from the vagina; vaginal packing was placed and removed. vaginal bleeding appears to have subsided. Pt with significant increase in Hgb and plts s/p transfusion. - LDH elevated which is likely secondary to underlying malignancy - Hgb now stable around 10.0 status post 4 units pRBCs # Severe thrombocytopenia, secondary to chemotherapy and bone marrow suppression from prior chemotherapy. No e/o DIC or TTP -platelets are 30K -will monitor for now and transfuse if patient begins to bleed again # End-stage metastatic cervical cancer, s/p gemzar on 12/02/16 at 50% dose. Bone marrow already affected by prior chemotherapy. - Case discussed extensively with daughter and the patient, and explained hospice would be appropriate. however family is seeking another opinion at the [facility]. I do agree that further therapy would probably cause more harm than good. Plan to transfuse patient, then likely discharge patient and continue discussion/evaluation of patient's clinical condition as an outpatient and second opinion per family request. - as stated above will proceed with XRT with Dr. Amor #h/o LLE DVT -continue to hold Eliquis as platelets are less than 50K and she recently had a vaginal bleed Approximately 40 min were spent at patient's bedside and in coordination of her care Problems: Consultation Date/Type/Reason Admit Date/Time Dec 09, 2016 at 14:49 Initial Consult Date 12/09/16 Type of Consultation: Oncology Reason for Consultation metastatic cervical cancer Referring Provider: RANI JACKSON MD 24 HR Interval Summary Free Text/Dictation pt started her XRT yesterday. tolerating it well. no vaginal bleeding Exam/Review of Systems Vital Signs Vitals Vital Signs Date Time Temp Pulse Resp B/P Pulse Ox O2 Delivery O2 Flow Rate FiO2 12/16/16 15:33 98.0 108 18 107/67 99 Intake and Output 12/15/16 12/15/16 12/16/16 15:00 23:00 07:00 Intake Total 300 ml 940 ml Balance 300 ml 940 ml Exam Constitutional: frail Head: normocephalic Eyes: nl conjunctiva ENMT: nl external ears & nose Neck: non-tender, supple Respiratory: clear to auscultation Cardiovascular: regular rate and rhythm Gastrointestinal: soft Musculoskeletal: nl extremities to inspection Results Result Diagram: 12/16/16 0656 12/16/16 0656 Results 24 hrs Laboratory Tests Test 12/16/16 06:56 White Blood Count 5.2 Red Blood Count 2.64 L Hemoglobin 9.1 L Hematocrit 26.3 L Mean Corpuscular Volume 99.6 Mean Corpuscular Hemoglobin 34.5 H Mean Corpuscular Hemoglobin Concent 34.6 Red Cell Distribution Width 21.0 H Platelet Count 31 L Mean Platelet Volume 13.3 H Neutrophils % 62.5 Lymphocytes % 21.9 Monocytes % 14.6 H Eosinophils % 0.2 Basophils % 0.2 Nucleated Red Blood Cells % 0.6 H Neutrophils # 3.2 Lymphocytes # 1.1 Monocytes # 0.8 Eosinophils # 0.0 Basophils # 0.0 Nucleated Red Blood Cells # 0.0 Sodium Level 132 L Potassium Level 3.3 L Chloride Level 96 L Carbon Dioxide Level 23 Anion Gap 16 Blood Urea Nitrogen 8 Creatinine 0.51 Glucose Level 95 Calcium Level 10.1 Medications Medications Current Medications Ondansetron HCl (Zofran Inj) 4 mg Q6H PRN IV NAUSEA AND/OR VOMITING Last administered on 12/16/16t 09:06; Admin Dose 4 MG; Start 12/09/16 at 17:30 Acetaminophen (Tylenol Liquid) 650 mg Q6H PRN PO PAIN LEVEL 1-3 OR FEVER; Start 12/09/16 at 17:30 Morphine Sulfate (morphine) 1 mg Q4H PRN IV PAIN LEVEL 7-10 Last administered on 12/15/16 18:36; Admin Dose 1 MG; Start 12/09/16 at 17:30 Lorazepam (Ativan) 0.5 mg Q6 PRN IV ANXIETY; Start 12/09/16 at 17:30 Pantoprazole (Protonix Iv) 40 mg DAILY@06 IV Last administered on 12/16/16 06: 18; Admin Dose 40 MG; Start 12/10/16 at 06:00 Magnesium Hydroxide (Milk Of Mag) 30 ml DAILY PRN PO CONSTIPATION Last administered on 12/14/16 11:07; Admin Dose 30 ML; Start 12/14/16 at 10:30 Hydrocodone Bit/ Homatropine Methylb (Hycodan Liquid) 5 ml Q6 PRN PO COUGH; Start 12/15/16 at 22:00 Phenol 1 lozenge 1 lozenge Q1H PRN MT SORE THROAT; Start 12/15/16 at 22:00 Potassium Chloride/Dextrose/ Sod Cl 1,000 ml @ 50 mls/hr Q20H IV Last administered on 12/16/16 15:06; Admin Dose 50 MLS/HR; Start 12/16/16 at 15:00 Potassium Chloride/Dextrose (KCl/D5W) 265 ml @ 88.333 mls/ hr ONCE ONCE IVPB Last administered on 12/16/16 15:06; Admin Dose 88.333 MLS/HR; Start 12/16/16 at 16:00; Stop 12/16/16 at 18:59 DIONISIO ZALDIVAR M.D. Dec 16, 2016 16:34
--- NOTE | 2016-12-16 17:34 | PN ---
Date/Time of Note Date/Time of Note DATE: 12/16/16 TIME: 17:31 Assessment/Plan VTE Prophylaxis VTE Prophylaxis Intervention: SCD's Lines/Catheters IV [facility] Type (from [facility] Port a cath Urinary Cath still in place: No Assessment/Plan Chief Complaint/Hosp Course Patient remains hemodynamically stable denies any active bleeding, hypokalemia, will replace potassium. Platelets is 31 today. Patient's continues to have poor p.o. intake. Continued on IV fluids with dextrose. ASSESSMENT AND PLAN: - Hypokalemia, will replace potassium. - End-stage metastatic cervical cancer, status post chemotherapy. Dr. Ruiz is following in oncology consultation. Patient is undergoing radiation with Dr. George. - Acute anemia secondary to blood loss and chemotherapy. Status post blood transfusion. - Severe thrombocytopenia. - S/p vaginal bleeding, status post vaginal packing. Dr. Vazquez is following in gynecologic oncology consultation. - Severe cachexia with protein calorie malnutrition. - History of left lower extremity DVT, Eliquis is held due to bleeding. Case management is working on arrangements for transportation to radiation oncology. Further recommendations based on clinical course. Plan of care discussed with Dr. Webster. Problems: Exam/Review of Systems Vital Signs Vitals Vital Signs Date Time Temp Pulse Resp B/P Pulse Ox O2 Delivery O2 Flow Rate FiO2 12/16/16 15:33 98.0 108 18 107/67 99 Intake and Output 12/15/16 12/15/16 12/16/16 15:00 23:00 07:00 Intake Total 300 ml 940 ml Balance 300 ml 940 ml Exam Constitutional: alert, frail, oriented, other (Cachectic) Head: normocephalic Neck: supple Respiratory: normal air movement Cardiovascular: nl pulses Gastrointestinal: non-tender, soft Extremities: normal pulses Results Result Diagram: 12/16/16 0656 12/16/16 0656 Results 24 hrs Laboratory Tests Test 12/16/16 06:56 White Blood Count 5.2 Red Blood Count 2.64 L Hemoglobin 9.1 L Hematocrit 26.3 L Mean Corpuscular Volume 99.6 Mean Corpuscular Hemoglobin 34.5 H Mean Corpuscular Hemoglobin Concent 34.6 Red Cell Distribution Width 21.0 H Platelet Count 31 L Mean Platelet Volume 13.3 H Neutrophils % 62.5 Lymphocytes % 21.9 Monocytes % 14.6 H Eosinophils % 0.2 Basophils % 0.2 Nucleated Red Blood Cells % 0.6 H Neutrophils # 3.2 Lymphocytes # 1.1 Monocytes # 0.8 Eosinophils # 0.0 Basophils # 0.0 Nucleated Red Blood Cells # 0.0 Sodium Level 132 L Potassium Level 3.3 L Chloride Level 96 L Carbon Dioxide Level 23 Anion Gap 16 Blood Urea Nitrogen 8 Creatinine 0.51 Glucose Level 95 Calcium Level 10.1 Medications Medications Current Medications Ondansetron HCl (Zofran Inj) 4 mg Q6H PRN IV NAUSEA AND/OR VOMITING Last administered on 12/16/16 09:06; Admin Dose 4 MG; Start 12/09/16 at 17:30 Acetaminophen (Tylenol Liquid) 650 mg Q6H PRN PO PAIN LEVEL 1-3 OR FEVER; Start 12/09/16 at 17:30 Morphine Sulfate (morphine) 1 mg Q4H PRN IV PAIN LEVEL 7-10 Last administered on 12/15/16 18:36; Admin Dose 1 MG; Start 12/09/16 at 17:30 Lorazepam (Ativan) 0.5 mg Q6 PRN IV ANXIETY; Start 12/09/16 at 17:30 Pantoprazole (Protonix Iv) 40 mg DAILY@06 IV Last administered on 12/16/16 06: 18; Admin Dose 40 MG; Start 12/10/16 at 06:00 Magnesium Hydroxide (Milk Of Mag) 30 ml DAILY PRN PO CONSTIPATION Last administered on 12/14/16 11:07; Admin Dose 30 ML; Start 12/14/16 at 10:30 Hydrocodone Bit/ Homatropine Methylb (Hycodan Liquid) 5 ml Q6 PRN PO COUGH; Start 12/15/16 at 22:00 Phenol 1 lozenge 1 lozenge Q1H PRN MT SORE THROAT; Start 12/15/16 at 22:00 Potassium Chloride/Dextrose/ Sod Cl 1,000 ml @ 50 mls/hr Q20H IV Last administered on 12/16/16 15:06; Admin Dose 50 MLS/HR; Start 12/16/16 at 15:00 Potassium Chloride/Dextrose (KCl/D5W) 265 ml @ 88.333 mls/ hr ONCE ONCE IVPB Last administered on 12/16/16 15:06; Admin Dose 88.333 MLS/HR; Start 12/16/16 at 16:00; Stop 12/16/16 at 18:59 AMNA LUCERO Dec 16, 2016 17:34
[2016-12-16 19:45] VITALS: BP 87/57; RESP 15
[2016-12-16] MEDS: morphine 2 MG INJ IV PRN (23:35)
[2016-12-17] VITALS: BP 99/58; RESP 15
[2016-12-17 01:19] VITALS: BP 105/63; PULSE 98; RESP 18
[2016-12-17 05:04] LABS: ADD SCAN DIFF NO
[2016-12-17 05:15] LABS: ABNORMAL IP MESSAGE 1; EOSINOPHILS % 0.2 % (0.0-7.0); HEMATOCRIT 28.3 % (37.0-47.0); HEMOGLOBIN 9.5 g/dl (12.0-16.0); LYMPHOCYTES # 1.1 10^3/ul (0.8-2.9); LYMPHOCYTES % 24.8 % (15.0-51.0); MEAN CORPUSCULAR HEMOGLOBIN 33.7 pg (29.0-33.0); MEAN CORPUSCULAR HGB CONC 33.6 g/dl (32.0-37.0); MEAN CORPUSCULAR VOLUME 100.4 fl (82.0-101.0); MEAN PLATELET VOLUME 13.7 fl (7.4-10.4); MONOCYTE # 0.5 10^3/ul (0.3-0.9); MONOCYTES % 11.6 % (0.0-11.0); NEUTROPHIL # 2.9 10^3/ul (1.6-7.5); NUCLEATED RED BLOOD CELLS% 0.7 /100WBC (0.0-0.0); PLATELET COUNT 31 10^3/UL (140-415); RED BLOOD COUNT 2.82 10^6/ul (4.20-5.40); RED CELL DISTRIBUTION WIDTH 21.5 % (11.5-14.5); WHITE BLOOD COUNT 4.6 10^3/ul (4.8-10.8)
[2016-12-17 05:27] LABS: CALCIUM 10.2 mg/dl (8.4-10.2); CREATININE 0.52 mg/dl (0.44-1.00); POTASSIUM 3.7 mmol/L (3.5-5.1)
[2016-12-17] MEDS: PANTOPRAZOLE 40 MG INJ IV SCH (05:58)
[2016-12-17 08:20] LABS: PLATELET ESTIMATE PLT APPEAR DECREASED
[2016-12-17 08:23] VITALS: BP 120/77; RESP 20
[2016-12-17] MEDS: ONDANSETRON 4 MG INJ IV PRN (09:17)
[2016-12-17] MEDS: D5-NS + KCL 20 MEQ 1,000 ML IV SCH (11:33)
--- NOTE | 2016-12-17 12:16 | DS ---
Date/Time of Note Date/Time of Note DATE: 12/17/16 TIME: 12:14 Discharge Summary Admission/Discharge Info Admit Date/Time Dec 09, 2016 at 14:49 Discharge Date/Time 12/17/16 Final Diagnosis - Hypokalemia, will replace potassium. - End-stage metastatic cervical cancer, status post chemotherapy. Dr. Ruiz is following in oncology consultation. Patient is undergoing radiation with Dr. George. - Acute anemia secondary to blood loss and chemotherapy. Status post blood transfusion. - Severe thrombocytopenia. - S/p vaginal bleeding, status post vaginal packing. Dr. Vazquez is following in gynecologic oncology consultation. - Severe cachexia with protein calorie malnutrition. - History of left lower extremity DVT, Eliquis is held due to bleeding. Consults oncology Hx of Present Illness Patient comes in with End-stage metastatic cervical cancer, undergoing radiation with Dr. George. - Acute anemia secondary to blood loss and chemotherapy. Status post blood transfusion. - Severe thrombocytopenia. - S/p vaginal bleeding, status post vaginal packing. Dr. Vazquez is following in gynecologic oncology consultation. - Severe cachexia with protein calorie malnutrition. - History of left lower extremity DVT, Eliquis is held due to bleeding. Hospital Course Patient remains hemodynamically stable denies any active bleeding, hypokalemia, will replace potassium. Platelets is 31 today. Patient's continues to have poor p.o. intake. Continued on IV fluids with dextrose. Oncology recommend hospice but the family wishes to have a second opinion and so she will be discharged. ASSESSMENT AND PLAN: - Hypokalemia, will replace potassium. - End-stage metastatic cervical cancer, status post chemotherapy. Dr. Ruiz is following in oncology consultation. Patient is undergoing radiation with Dr. George. - Acute anemia secondary to blood loss and chemotherapy. Status post blood transfusion. - Severe thrombocytopenia. - S/p vaginal bleeding, status post vaginal packing. Dr. Vazquez is following in gynecologic oncology consultation. - Severe cachexia with protein calorie malnutrition. - History of left lower extremity DVT, Eliquis is held due to bleeding. Case management is working on arrangements for transportation to radiation oncology. Further recommendations based on clinical course. Plan of care discussed with Dr. Webster. Home Meds Reported Medications Ondansetron Hcl* (Ondansetron Hcl*) 8 Mg Tablet, 8 MG PO Q8 Y for NAUSEA AND/OR VOMITING, TAB 12/09/16 Tramadol Hcl* (Ultram*) 50 Mg Tablet, 50 MG PO Q6H Y for PAIN, TAB 05/05/16 Omeprazole* (Omeprazole*) 20 Mg Capsule.dr, 20 MG PO BID, #60 CAP 05/05/16 Lorazepam* (Lorazepam*) 0.5 Mg Tablet, 0.5 MG PO HS Y for ANXIETY, TAB 04/20/16 Primary Care Provider Joleen Garrett Pending Labs Laboratory Tests Test 12/17/16 04:30 White Blood Count 4.610^3/ul (4.8-10.8) Red Blood Count 2.8210^6/ul (4.20-5.40) Hemoglobin 9.5g/dl (12.0-16.0) Hematocrit 28.3% (37.0-47.0) Mean Corpuscular Volume 100.4fl (82.0-101.0) Mean Corpuscular Hemoglobin 33.7pg (29.0-33.0) Mean Corpuscular Hemoglobin Concent 33.6g/dl (32.0-37.0) Red Cell Distribution Width 21.5% (11.5-14.5) Platelet Count 3110^3/UL (140-415) Mean Platelet Volume 13.7fl (7.4-10.4) Neutrophils % 63.0% (39.0-77.0) Lymphocytes % 24.8% (15.0-51.0) Monocytes % 11.6% (0.0-11.0) Eosinophils % 0.2% (0.0-7.0) Basophils % 0.0% (0.0-2.0) Nucleated Red Blood Cells % 0.7/100WBC (0.0-0.0) Neutrophils # 2.910^3/ul (1.6-7.5) Lymphocytes # 1.110^3/ul (0.8-2.9) Monocytes # 0.510^3/ul (0.3-0.9) Eosinophils # 0.010^3/ul (0.0-0.5) Basophils # 0.010^3/ul (0.0-0.1) Nucleated Red Blood Cells # 0.010^3/ul (0.0-0.0) Differential Comment AUTO w/SCAN Platelet Estimate PLT APPEAR DECREASED Sodium Level 133mmol/L (135-144) Potassium Level 3.7mmol/L (3.5-5.1) Chloride Level 99mmol/L (97-110) Carbon Dioxide Level 19mmol/L (21-31) Anion Gap 19 (8-16) Blood Urea Nitrogen 8mg/dl (7-20) Creatinine 0.52mg/dl (0.44-1.00) Glucose Level 92mg/dl (70-220) Calcium Level 10.2mg/dl (8.4-10.2) ZANDER BAILEY Dec 17, 2016 12:16
[2016-12-17] MEDS ORDERED: HEPARIN (100 UNITS/ML) 5 ML SYG CATHETER ONE (13:30)
--- NOTE | 2016-12-18 10:08 | CONS ---
DATE OF ADMISSION: 12/09/2016 DATE OF CONSULTATION: 12/12/2016 HISTORY OF PRESENT ILLNESS: The patient is a 61-year-old female who is known to my department as e has been evaluated on several instances by my colleague, Dr. Josseline Roberts. The patient has a his tory of stage IV cervical cancer with known involvement of the liver and direct extension into the r ectum. She has been managed with palliative chemotherapy to date. She has suffered from significan t bone marrow depression. She was recently admitted to [facility] with a several- day history of vaginal bleeding with clots. She was assessed by Dr. Jared Vazquez who has recommended palliative radiation therapy to the pelvis to control bleeding. The patient's history dates back to early 2015 when she presented to medical attention with complain ts of rectal bleeding and bowel frequency. Lower endoscopy did reveal a mass at 5 cm from the anal verge, and biopsies confirmed poorly differentiated squamous cell carcinoma. A CT PET scan on 11/23 was significant for a large markedly hypermetabolic pelvic mass measuring nearly 9 cm as well as extensive hepatic metastatic disease and mild left-sided hydroureteronephrosis secondary to exter nal compression of the left distal ureter by the mass. A CT-guided biopsy of the liver on 6 was initially read as metastatic poorly differentiated adenocarcinoma, but upon review of the hist ory, my understanding is that this was amended to metastatic squamous cell carcinoma. Decision was that the primary site was cervix. The patient was initially managed with carboplatin and Taxol with good palliative response. Repeat PET scan on 06/11/2016 described a decrease in the pelvic mass, n ow measuring only 2.5 mm x 2 cm. There was also a significant interval decrease in the size and upt ludin of the multiple hepatic metastases. Unfortunately, since then, the patient has developed diseas e progression and was started on single agent gemcitabine. She has had recent imaging in October 2016 that apparently confirmed radiographic progression. I am trying to retrieve that report. The gemc itabine was most recently delivered in late November, and there was a 50% dose reduction due to the patie nt's thrombocytopenia. Two days prior to hospitalization, the patient began to complain of significant vaginal bleeding wit h clots. Her hemoglobin was 4.5, hematocrit 13.5, and platelet count 5000. She also complained of a low-grade fever and nonproductive cough but no chills or sweats. She also noted poor appetite but no nausea, vomiting, or diarrhea. She was assessed. She was given 5 units of packed red blood cassy ls and 2 units of platelets. She then did undergo examination and evaluation by Dr. Vazquez with whom I discussed this case. 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 Vaginal packing was placed, and the patient' s bleeding seems to be controlled. PAST MEDICAL HISTORY: Left lower extremity deep venous thrombosis, gastritis, gastroesophageal refl ux disease. PAST SURGICAL HISTORY: IVC filter placed in 2016. ALLERGIES TO MEDICATIONS: None. CURRENT MEDICATIONS: 1. Zofran. 2. Tylenol. 3. Morphine sulfate p.r.n. 4. Ativan. 5. Protonix. SOCIAL HISTORY: The patient is seen today with family. She denies tobacco or alcohol use. FAMILY HISTORY: No pertinent family history. REVIEW OF SYSTEMS: GENERAL: No fever, chills, or sweats. Significant fatigue. ENT: No otalgia, facial, hoarseness. NEUROLOGIC: No headaches, seizures, syncope, or focal extremity weakness or numbness. RESPIRATORY: No shortness of breath, cough, hemoptysis, or wheezing. CARDIOVASCULAR: No chest pain, palpitations, heart attacks, or strokes. GASTROINTESTINAL: No nausea, vomiting, or abdominal pain. She does not admit to any recent rectal bleeding. She has had fecal incontinence in the past. GENITOURINARY: No dysuria, hematuria, or urinary incontinence. ENDOCRINE: No history of diabetes or thyroid disease. SKIN: No history of lupus, scleroderma, or shingles. MUSCULOSKELETAL: She does admit to low back pain and pelvic pain. PHYSICAL EXAMINATION: GENERAL: Frail, debilitated appearing female in mild discomfort. Sclerae are anicteric. HEENT: Extraocular motions are intact. No facial asymmetry. NODES: No palpable cervical or supraclavicular adenopathy. ABDOMEN: Soft and nontender, without rebound or guarding. EXTREMITIES: No edema. SPARK PLUG ASSEMBLER: Examination deferred. 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 She initially responded to carboplatin and Taxol but upon progression was placed on gemcitabine. She has suffered from significant bone marrow suppression. She is now c omplaining of severe vaginal bleeding. PLAN: I do feel it is reasonable to consider palliative radiation therapy to the pelvis. Given the patient's circumstances, I would offer her a dose of 3000 cGy in 10 fractions. The patient has bee n offered placement of hospice, but the family has declined and remain interested in continued more aggressive intervention. The patient is currently on the telemetry unit, and given that my facility is not on hospital campus, I will need to check whether or not she is safe for transport. I do fee l that her bleeding is currently stable, and thus, it may be reasonable to wait when she is transfer red to a step down unit. The patient would require CT simulation for planning purposes. I will try to minimize dose to the s mall bowel and bladder during the planning process to minimize treatment related side effects. I wo uld also hope to minimize dose to the adjacent bone marrow given her issues with anemia and thromboc ytopenia. I did discuss the possible side effects of treatment with the patient and her family. Th linda include but are not limited to discussion and fatigue, bone marrow suppression, cramping, diarrh ea, and worsening of the preexisting rectovaginal fistula. All questions were answered. Again, I w ill review her case with other treating physicians and see if and when she can be transported to [facility] the planning and treatment process. Dictated By: BELGICA VALENCIA/JOAN Conf#: [id number] DID#: [id number]
== END 2016-12-17 13:43 | disposition home or self-care (01) | DRG 811 ==
LOC: E/R 11:54 → ICU 14:49 → MS4 12-10 17:45 → MS1 12-17 01:03
PROVIDERS: ADMIT Internal Medicine; ATTEND Internal Medicine
PROC: 30253N1 (ICD-10-PCS; principal; 2016-12-09)
PROC: 2Y44X5Z Packing of Female Genital Tract using Packing Material (ICD-10-PCS; 2016-12-09)
PROC: 30233R1 Transfusion of Nonautologous Platelets into Peripheral Vein, Percutaneous Approach (ICD-10-PCS; 2016-12-09)
PROC: 30233N1 Transfusion of Nonautologous Red Blood Cells into Peripheral Vein, Percutaneous Approach (ICD-10-PCS; 2016-12-09)
DX: D62 Acute posthemorrhagic anemia (principal); R57.8 Other shock; R64 Cachexia; E46 Unspecified protein-calorie malnutrition; D69.59 Other secondary thrombocytopenia; E87.2 Acidosis; N93.9 Abnormal uterine and vaginal bleeding, unspecified; D64.81 Anemia due to antineoplastic chemotherapy; C53.9 Malignant neoplasm of cervix uteri, unspecified; E87.6 Hypokalemia; E83.42 Hypomagnesemia; T45.1X5A Adverse effect of antineoplastic and immunosuppressive drugs, initial encounter; Z68.22 Body mass index [BMI] 22.0-22.9, adult; Z86.718 Personal history of other venous thrombosis and embolism
CPT/HCPCS: 36415; 36430; 71010; 76937; 77014; 77290; 77295; 77334; 77412; 80048; 80053; 82270; 83010; 83605; 83615; 83735; 85025; 85045; 85362; 85384; 85610; 85730; 86644; 86850; 86900; 86901; 86920; 86945; 87040; 87081; 93005; 96361; 96365; C9113; J0692; J1642; J2270; J2405; J3475; J3480; J7030; J7040; J7042; J7070; P9011; P9016; P9035

== ENCOUNTER 2016-12-26 16:38 | Inpatient (IN) | payer BC ==
[~2016-12-26] VITALS: Ht 152.4 cm; Wt 40.1 kg
[~2016-12-26 16:38] MED LIST changes: -APIX5TAB PO; -HYDR-902 PO; -ONDA4TAB14 PO; +ONDA8TAB83 PO
--- NOTE | 2016-12-26 16:52 | ERA ---
ER Documentation Chief Complaint Date/Time DATE: 12/26/16 TIME: 16:52 Chief Complaint SENT BY PCP FOR WEAKNESS, DEHYDRATION, BLOOD WORK. HX CERVICAL CA HPI The patient is a 61-year-old female, presenting to the ER because of acute dehydration. She went to radiation oncologist Dr. Amor, who sent her to the ER because of acute dehydration. She has not been eating well for the last couple days, less responsive according to the daughter and complains of vague and diffuse colonic abdominal pain. She vomited once today mostly mucus, denies fever, chills, neck pain, chest pain, dyspnea, dysuria, diarrhea, constipation. She has been receiving radiation for the last week, this is her sixth episode of radiation. She used to have chemotherapy under until 2 weeks ago. She does not smoke nor drink Past medical history: Metastatic cervical cancer, anemia, thrombocytopenia, history of left leg DVT Past medical history: None ROS All systems reviewed and are negative except as per history of present illness. Medications Home Meds Reported Medications Ondansetron Hcl* (Ondansetron Hcl*) 8 Mg Tablet, 8 MG PO Q8 Y for NAUSEA AND/OR VOMITING, TAB 12/09/16 Tramadol Hcl* (Ultram*) 50 Mg Tablet, 50 MG PO Q6H Y for PAIN, TAB 05/05/16 Omeprazole* (Omeprazole*) 20 Mg Capsule.dr, 20 MG PO BID, #60 CAP 05/05/16 Lorazepam* (Lorazepam*) 0.5 Mg Tablet, 0.5 MG PO HS Y for ANXIETY, TAB 04/20/16 Allergies Allergies: Coded Allergies: No Known Allergy (Unverified , 12/26/16) PMhx/Soc History of Surgery: No Anesthesia Reaction: No Hx Neurological Disorder: No Hx Respiratory Disorders: No Hx Cardiac Disorders: Yes (DVT L lower extremity, IVC filter placed 2015) Hx Psychiatric Problems: No Hx Miscellaneous Medical Probl: Yes (cervical cancer ) Hx Alcohol Use: No Hx Substance Use: No Hx Tobacco Use: No Physical Exam Vitals Vital Signs Date Time Temp Pulse Resp B/P Pulse Ox O2 Delivery O2 Flow Rate FiO2 12/26/16 19:34 108 20 96/42 98 Room Air 12/26/16 18:12 98.0 117 20 104/71 98 Room Air 12/26/16 18:10 Nasal Cannula 12/26/16 16:44 97.9 130 16 117/79 97 Physical Exam Const: No acute distress. Cachectic, dehydrated Head: Atraumatic. Eyes: Normal Conjunctiva. ENT: Normal External Ears, Nose and Mouth. Neck: Full range of motion. No meningismus. Resp: Clear to auscultation bilaterally. Cardio: Regular tachycardic Abd: Soft, non distended, normal bowel sounds, diffuse and vague abdominal tenderness, no rigidity, rebound, CVA tenderness Skin: No petechiae or rashes. Back: No midline or flank tenderness. Ext: No cyanosis, or edema. Neur: Awake and alert. No focal deficit Psych: Normal Mood and Affect. Result Diagram: 12/26/16 1730 12/26/16 1730 Results 24 hrs Laboratory Tests Test 12/26/16 17:30 12/26/16 18:07 12/26/16 18:12 White Blood Count 16.810^3/ul Red Blood Count 2.4110^6/ul Hemoglobin 8.6g/dl Hematocrit 25.1% Mean Corpuscular Volume 104.1fl Mean Corpuscular Hemoglobin 35.7pg Mean Corpuscular Hemoglobin Concent 34.3g/dl Red Cell Distribution Width 24.9% Platelet Count 2410^3/UL Mean Platelet Volume 12.3fl Neutrophils % 94.0% Band Neutrophils % 1.0% Lymphocytes % 2.0% Monocytes % 3.0% Nucleated Red Blood Cells % 4.0/100WBC Neutrophils # 15.810^3/ul Lymphocytes # 0.310^3/ul Monocytes # 0.510^3/ul Platelet Estimate PLT APPEAR DECREASED Anisocytosis 1+ Macrocytosis 1+ Prothrombin Time 26.9Sec Prothrombin Time Ratio 2.1 INR International Normalized Ratio 2.45 Activated Partial Thromboplast Time 41.1Sec Sodium Level 134mmol/L Potassium Level 4.2mmol/L Chloride Level 93mmol/L Carbon Dioxide Level 18mmol/L Anion Gap 27 Blood Urea Nitrogen 23mg/dl Creatinine 0.90mg/dl Glucose Level 77mg/dl Lactic Acid Level 17.0mmol/L Calcium Level 13.0mg/dl Total Bilirubin 9.9mg/dl Direct Bilirubin 7.90mg/dl Indirect Bilirubin 2.0mg/dl Aspartate Amino Transf (AST/SGOT) 123IU/L Alanine Aminotransferase (ALT/SGPT) 46IU/L Alkaline Phosphatase 285IU/L Troponin I < 0.012ng/ml Total Protein 7.1g/dl Albumin 3.1g/dl Globulin 4.00g/dl Albumin/Globulin Ratio 0.77 Urine Color GLORY Urine Clarity CLOUDY Urine pH 5.5 Urine Specific Temple 1.020 Urine Ketones TRACE Urine Nitrite POSITIVE Urine Bilirubin 3+ Urine Ictotest Pending Urine Urobilinogen 4.0 E.U./dL Urine Leukocyte Esterase 3+ Urine Microscopic RBC Pending Urine Microscopic WBC Pending Urine Hemoglobin 3+ Urine Glucose NEGATIVE% Urine Total Protein 1+ Bedside Urine pH (LAB) 5.5 Bedside Urine Protein (LAB) 2+ Bedside Urine Glucose (UA) Negative Bedside Urine Ketones (LAB) Trace Bedside Urine Blood 3+ Bedside Urine Nitrite (LAB) Negative Bedside Urine Leukocyte Esterase (L 3+ Current Medications Medications (Trade) Dose Ordered Sig/Dania Route PRN Reason Start Time Stop Time Status Last Admin Dose Admin Sodium Chloride 1270 ml 1,270 ml BOLUS OVER 2 HOURS STAT IV* 12/26/16 16:58 12/26/16 16:59 DC 12/26/16 16:58 Sodium Chloride 1,270 ml @ 1,270 mls/hr BOLUS X1 ONCE IV 12/26/16 19:00 12/26/16 19:59 12/26/16 19:25 Piperacillin Sod/ Tazobactam Sod 100 ml @ 200 mls/hr ONCE ONCE IVPB 12/26/16 19:00 12/26/16 19:29 DC 12/26/16 19:25 Vancomycin HCl (Vancocin) 250 ml @ 125 mls/hr ONCE IVPB 12/26/16 19:00 12/26/16 20:59 Lidocaine 5 ml 5 ml ONCE ONCE SC 12/26/16 19:00 12/26/16 19:01 DC Zoledronic Acid/ Sodium Chloride (Zometa/NS) 105 ml @ 210 mls/hr ONCE ONCE IVPB 12/26/16 20:00 12/26/16 20:29 Procedures/[address] [address] Radiology Main Line: [phone] DIAGNOSTIC IMAGING REPORT Patient: JN CHERRY : 1955 Age: 61 Sex: F MR #: [id number] DOS: 12/26/16 1658 Ordering MD: ILEANA CASON MD Location: E/R Room/Bed: PROCEDURE: XR Chest. CLINICAL INDICATION: Shortness of breath. Sepsis. TECHNIQUE: Single frontal view. COMPARISON: 12/09/2016. FINDINGS: The lungs are clear. The heart size is normal. There is a right internal jugular vein implanted port central venous catheter with the tip in the cavoatrial junction region. There is no pleural effusion. There is no pneumothorax. IMPRESSION: 1. Central venous catheter in satisfactory position. 2. Previously noted right upper lobe pneumonia no longer present. 3. Otherwise normal chest radiograph. RPTAT: QQ .Nixon Kelley MD, MD Date Time Electronically viewed and signed by .Nixon Kelley MD, MD on 12/26/2016 17:22 .R/ CC: ILEANA CASON MD EKG: Read by emergency physician Rate/Rhythm: Sinus tachycardia 131 beats/min QRS, ST, T-waves: Nonspecific ST and T abnormality, no PVC Impression: Abnormal EKG MEDICAL MAKING DECISION: The patient is a 61-year-old female, presenting with acute septic shock, acute dehydration, acute cystitis, acute hypercalcemia. She was treated with normal saline 30 mL/kg IV 2, Zosyn IV, vancomycin IV, zoledronate 4 mg IV over 15 min and IV fluid for acute hypercalcemia Admit MDM: Patient's infectious symptoms have not stabilized and the patient is at risk of rapid decompensation. The patient will be admitted for careful hydration, antibiotic therapy, and infectious source control. Severe Sepsis criteria: Infectious source: UTI End organ damage indicated by: Lactate > 2.0 mmol/L Hypotension (SBP < 90 or >40 mmHG drop or MAP < 65) Sepsis Management: Time of recognition of severe sepsis/septic shock:1800 hrs. Within 3 hours of recognition: Blood cultures x 2 before broad-spectrum antibiotics: Yes 30 ml/kg NS bolus completed Initial lactate 17 Repeat lactate pending Critical Care: Critical care time 35 minutes Emergent fluid management while maintaining close respiratory support. Provision of immediate and broad-spectrum antibiotic therapy. Simultaneous assessment for possible sources in order to direct targeted therapy. Consideration for invasive and chemical support to prevent cardiopulmonary collapse. Septic Shock Assessment: Any lactic acid > 4.0 yes Persistent hypotension (SBP < 90 or 40 mmHg drop, MAP < 65) despite 30 mL/kg IV fluid bolusno Volume Re-assessment for Septic Shock (post 30 ml/kg bolus): Temp98, BP104/71, HR117, RR20, Pox95% Heart tachycardic & rhythm Lungs no crackles Skin Warm & dry & pink Cap Refill less than 2 seconds Peripheral pulses radially present Persistent Hypotension Treatment: Comfort care no Central line not indicated, PICC line ordered Vasopressor started not indicated I considered further perfusion assessment with CVP measurement, SCVO2, bedside ultrasound volume assessment, passive leg raise, trial of further fluid bolus. And proceeded withIV fluids Departure Diagnosis: Primary Impression: Septic shock Additional Impressions: Dehydration Cystitis Hypercalcemia Anemia Thrombocytopenia Abnormal LFTs Condition: Stable Comments I discussed the findings with the patient. I discussed the patient with her physician Dr. Webster who was made aware of the lab, the treatment, the patient condition. The patient is admitted to [facility] at 7:30 PM ILEANA CASON MD Dec 26, 2016 16:52
[2016-12-26] MEDS ORDERED: SODIUM CHLORIDE 0.9% 1L BAG IV* STA (16:58)
--- NOTE | 2016-12-26 17:23 | RADRPT ---
PROCEDURE: XR Chest. CLINICAL INDICATION: Shortness of breath. Sepsis. TECHNIQUE: Single frontal view. COMPARISON: 12/09/2016. FINDINGS: The lungs are clear. The heart size is normal. There is a right internal jugular vein implanted port central venous catheter with the tip in the ca voatrial junction region. There is no pleural effusion. There is no pneumothorax. IMPRESSION: 1. Central venous catheter in satisfactory position. 2. Previously noted right upper lobe pneumonia no longer present. 3. Otherwise normal chest radiograph. RPTAT: QQ .Nixon Kelley MD, MD Date Time Electronically viewed and signed by .Nixon Kelley MD, MD on 12/26/2016 17:22 .R/
[2016-12-26 17:36] LABS: ADD SCAN DIFF NO
[2016-12-26 17:48] LABS: ABNORMAL IP MESSAGE 1; HEMATOCRIT 25.1 % (37.0-47.0); MEAN CORPUSCULAR HEMOGLOBIN 35.7 pg (29.0-33.0); MEAN CORPUSCULAR HGB CONC 34.3 g/dl (32.0-37.0); MEAN CORPUSCULAR VOLUME 104.1 fl (82.0-101.0); MEAN PLATELET VOLUME 12.3 fl (7.4-10.4); RED BLOOD COUNT 2.41 10^6/ul (4.20-5.40); RED CELL DISTRIBUTION WIDTH 24.9 % (11.5-14.5)
[2016-12-26 17:56] LABS: INR 2.45; PROTIME 26.9 Sec (12.2-14.2); PT RATIO 2.1
[2016-12-26 17:57] LABS: PARTIAL THROMBOPLASTIN TIME 41.1 Sec (25.0-35.0)
[2016-12-26 18:01] LABS: ALANINE AMINOTRANSFERASE 46 IU/L (13-69); ALBUMIN 3.1 g/dl (3.3-4.9); ALBUMIN/GLOBULIN RATIO 0.77; ALKALINE PHOSPHATASE 285 IU/L (42-121); ANION GAP 27 (8-16); ASPARTATE AMINO TRANSFERASE 123 IU/L (15-46); BILIRUBIN,TOTAL 9.9 mg/dl (0.2-1.3); BLOOD UREA NITROGEN 23 mg/dl (7-20); CARBON DIOXIDE 18 mmol/L (21-31); CHLORIDE 93 mmol/L (97-110); GLUCOSE 77 mg/dl (70-220); POTASSIUM 4.2 mmol/L (3.5-5.1); SODIUM 134 mmol/L (135-144); TOTAL PROTEIN 7.1 g/dl (6.1-8.1)
[2016-12-26 18:10] LABS: URINE BLOOD (Dip) POC 3+ (NEGATIVE)
[2016-12-26 18:25] LABS: TROPONIN-I < 0.012 ng/ml (0.00-0.12)
[2016-12-26 18:34] LABS: LYMPHOCYTES # 0.3 10^3/ul (0.8-2.9); MONOCYTE # 0.5 10^3/ul (0.3-0.9); NEUTROPHIL # 15.8 10^3/ul (1.6-7.5)
[2016-12-26 18:35] LABS: ANISOCYTOSIS 1+; PLATELET ESTIMATE PLT APPEAR DECREASED
[2016-12-26] MEDS ORDERED: PIPER-TAZO 3.375 GM IV (PMX) 100 ML IVPB ONE (19:00)
[2016-12-26] MEDS ORDERED: SOD CHLORIDE 0.9% 1,270 ML IV ONE (19:00)
[2016-12-26] MEDS ORDERED: VANCOMYCIN 1 GM (PMX) 250 ML IVPB SCH (19:00)
[2016-12-26] MEDS ORDERED: LIDOCAINE 1% (MPF) 5 ML VIAL SC ONE (19:00)
[2016-12-26 19:01] LABS: ADD UMIC YES; UR BILIRUBIN (Dip) 3+ (NEGATIVE); UR BLOOD (Dip) 3+ (NEGATIVE); UR CLARITY CLOUDY (CLEAR); UR COLOR AMBER (YELLOW); UR GLUCOSE (Dip) NEGATIVE (NEGATIVE); UR KETONES (Dip) TRACE (NEGATIVE); UR LEUKOCYTE ESTERASE (Dip) 3+ (NEGATIVE); UR NITRITE (Dip) POSITIVE (NEGATIVE); UR TOTAL PROTEIN (Dip) 1+ (NEGATIVE); UR UROBILINOGEN (Dip) 4.0 E.U./dL (0.1-1.0)
[2016-12-26 19:35] LABS: ICTOTEST POSITIVE (NEGATIVE)
[2016-12-26 19:38] LABS: UR BACTERIA MANY; UR TRANSITIONAL EPI CELL FEW
[2016-12-26] MEDS ORDERED: ZOLEDRONIC ACID 4 MG in SOD CHLORIDE 0.9% 100 ML IVPB ONE (20:00)
[2016-12-26] MEDS ORDERED: ONDANSETRON 4 MG INJ IV PRN (23:00)
[2016-12-26] MEDS ORDERED: ACETAMINOPHEN 500 MG TAB PO PRN (23:00)
[2016-12-26] MEDS ORDERED: VANCOMYCIN IV PER PHARMACY XX SCH (23:00)
[2016-12-26] MEDS: SOD CHLORIDE 0.9% 1,000 ML IV SCH (23:00)
[2016-12-27] VITALS (8 sets, daily range): BP systolic 96–106; BP diastolic 55–66; PULSE 112–119; RESP 16–18; TEMP 97.6; Ht 152.4 cm; Wt 40.1 kg
[2016-12-27 06:04] LABS: ADD SCAN DIFF NO
[2016-12-27 06:07] LABS: ABNORMAL IP MESSAGE 1; BASOPHILS % 0.1 % (0.0-2.0); EOSINOPHILS % 0.1 % (0.0-7.0); HEMATOCRIT 20.7 % (37.0-47.0); LYMPHOCYTES # 0.7 10^3/ul (0.8-2.9); MEAN CORPUSCULAR HEMOGLOBIN 35.4 pg (29.0-33.0); MEAN CORPUSCULAR HGB CONC 33.8 g/dl (32.0-37.0); MEAN CORPUSCULAR VOLUME 104.5 fl (82.0-101.0); MONOCYTE # 0.8 10^3/ul (0.3-0.9); MONOCYTES % 6.9 % (0.0-11.0); NEUTROPHIL # 10.3 10^3/ul (1.6-7.5); NEUTROPHILS % 85.7 % (39.0-77.0); NUCLEATED RED BLOOD CELLS # 0.2 10^3/ul (0.0-0.0); NUCLEATED RED BLOOD CELLS% 1.6 /100WBC (0.0-0.0); RED BLOOD COUNT 1.98 10^6/ul (4.20-5.40); RED CELL DISTRIBUTION WIDTH 25.7 % (11.5-14.5)
[2016-12-27 06:30] LABS: CALCIUM 11.7 mg/dl (8.4-10.2); CREATININE 0.78 mg/dl (0.44-1.00); POTASSIUM 3.6 mmol/L (3.5-5.1)
[2016-12-27 06:42] LABS: PLATELET COUNT 15 10^3/UL (140-415)
[2016-12-27] MEDS: MEROPENEM 1 GM/100 ML (PMX) 100 ML IVPB SCH ×2 (07:56→20:33)
[2016-12-27] MEDS: VANCOMYCIN 500MG/NS (PMX) 100 ML IVPB SCH ×2 (12:01→21:30)
[2016-12-27] MEDS: SOD CHLORIDE 0.9% 1,000 ML IV SCH ×3 (12:03→21:32)
--- NOTE | 2016-12-27 12:15 | HP ---
DATE OF ADMISSION: 12/26/2016 CHIEF COMPLAINT: Generalized weakness. HISTORY OF PRESENT ILLNESS: The patient is a 61-year-old unfortunate female with end stage metastat ic cervical cancer. The patient follows with Dr. Ruiz from oncology standpoint and patient was und ergoing radiation with Dr. George. Patient had 5 days of radiation and developed generalized weakn ess. The patient is lethargic but easily arousable. Most of the history was obtained from medical records and talking to patient's daughter at the bedside. The patient's daughter states that gloria rod was weak lately, refused to eat; however, was able to take Ensure. The patient denies any vaginal bleeding at this time. Patient was previously admitted for vaginal bleeding. The patient also had nonbilious, nonbloody emesis x1. No fever, chest pain, shortness of breath, diarrhea, constipation reported. In the emergency room, patient was found to be very dehydrated with elevated white blood cells and urinalysis positive for urinary tract infection. Patient is also tachycardic and hypoten sive. Patient was also noted to be hypercalcemic and was given zoledronic. The patient was given I V fluids and started on broad spectrum antibiotics and the patient is admitted for further evaluatio n and management. PAST MEDICAL HISTORY: Positive for advanced stage metastatic cervical cancer, anemia, thrombocytope scot, history of left lower extremity deep venous thrombosis. PAST SURGICAL HISTORY: Status post Port-A-Cath placement in the right chest, status post IVC filter placement by Dr. Cage in 2016. FAMILY HISTORY: Negative for history of cancer. The patient's mother is 94 years old. SOCIAL HISTORY: Patient lives at home with her daughter. Denies any tobacco use, denies any alcoho l use, denies any illicit drug use. ALLERGIES: NO KNOWN ALLERGIES. HOME MEDICATIONS: Include: 1. Zofran. 2. Ultram. 3. Omeprazole. 4. Ativan. REVIEW OF SYSTEMS: A 12-point review of systems is negative unless what mentioned in the HPI. PHYSICAL ASSESSMENT GENERAL: Cachectic, frail female, is currently lethargic but easily arousable. VITAL SIGNS: Temperature is 97.6, pulse is 115, blood pressure is 101/70, respiratory rate 16, oxyg en saturation 100% on room air. HEENT: Atraumatic, normocephalic. Pupils equal, round, reactive to light and accommodation. Oral mucosa is dry. NECK: Supple, no cervical lymphadenopathy, no thyromegaly. CHEST: Lungs clear bilaterally. CARDIOVASCULAR: The patient is tachycardic. Normal S1, S2. No murmurs, gallops, clicks, rubs note d. ABDOMEN: Flat, soft, nondistended, nontender. Mild diffuse, vague abdominal tenderness. No costov ertebral angle tenderness. EXTREMITIES: No edema, clubbing, cyanosis. SKIN: There is no rash, petechiae noted. NEUROLOGICAL: The patient is lethargic but easily arousable, awake, alert x3. No focal deficits no donte. Motor strength 5/5 in all extremities. LABORATORY DATA: On admission, CBC: White blood cell 16.8, hemoglobin is 8.6, hematocrit 25.1, sharon telets 24. Chemistry: Sodium is 134, potassium 4.2, chloride 93, carbon dioxide 18, anion gap 27, BUN is 23, creatinine 0.9, glucose 77. Lactic acid is 17. AST is 123, ALT 46, alkaline phosphate 2 85. PT is 26.9, INR is 2.45, aPTT is 41.1. Urinalysis was positive for nitrite, positive to leukoc yte esterase, bacteria many. ASSESSMENT: 1. Sepsis with shock. Urinary tract infection per urinalysis. 2. Hypercalcemia. 3. Metastatic cervical cancer. 4. Anemia. 5. Thrombocytopenia. 6. Hypercalcemia. 7. Acute protein calorie malnutrition. PLAN: 1. Continue IV fluids and broad spectrum antibiotics. Follow up on final cultures. Asked Dr. Denny riley to see patient in infectious disease consultation. 2. Dr. Ruiz will be following the patient from hematology/oncology consultation. Continue close t elemetry monitoring and monitor lactic acid. 3. I spoke with the patient's daughter at the bedside. The patient's daughter, , does not wan t chest compressions. I also spoke about intubation. The patient's daughter stated that she will t hink about that and discuss with other family members. 4. The patient is currently on vancomycin and meropenem. Will continue Tylenol and morphine p.r.n. for pain and Zofran p.r.n. for nausea, Protonix for peptic ulcer disease prophylaxis. 5. Further recommendations based on clinical course. Plan of care discussed with Dr. Jackson. Dictated By: AMNA LUCERO INSTRUCTOR PHYSICAL for RANI JACKSON MD SR/NTS Conf#: [id number] DID#: [id number]
--- NOTE | 2016-12-27 14:07 | CONS ---
DATE OF ADMISSION: 12/26/2016 DATE OF CONSULTATION: 12/27/2016 INFECTIOUS DISEASE CONSULTATION REASON FOR CONSULTATION: Antibiotic management. HISTORY OF PRESENT ILLNESS: Lucas Price is a 61-year-old female who was admitted with generalized weakness. Her past problems include: End-stage metastatic cervical carcinoma followed by Dr. Ruiz and given radiation therapy by Dr. Meli lopez. The patient had 5 days of radiation and developed generalized weakness. The patient has been weak lately, was able to take Ensure, denies vaginal bleeding, was previously admitted for that. S he was found to be very dehydrated. On admission, her white count is 16.8, H and H 8.6 and 25.1, sharon telet count 24,000. BUN and creatinine 23/0.9. Urinalysis is positive for nitrite, leukocyte min ase and greater than 200 white cells per high powered field. Her BUN and creatinine was 23/0.9 as m entioned, and today her white count has gone from 16.8 to 12.0. Patient was begun on vancomycin and meropenem. Chest x-ray is CVP in satisfactory position, right upper lobe pneumonia no longer prese nt from previous admission. PAST MEDICAL HISTORY: Operations as outlined. PAST SURGICAL HISTORY: Status post port Port-A-Cath placement, status post IVC filter by Dr. Milka diez. FAMILY HISTORY: Noncontributory. SOCIAL HISTORY: She does not smoke, drink or abuse drugs. ALLERGIES: NONE TO PENICILLIN, SULFA OR FOODS. MEDICATIONS: Per chart. REVIEW OF SYSTEMS: Noncontributory. PHYSICAL EXAMINATION: GENERAL: The patient is a cachectic female who is lethargic but arousable. VITAL SIGNS: Stable. She is afebrile. SKIN: Without generalized rash. HEENT: Within normal limits. NECK: Supple. LYMPH NODES: None palpable. CHEST: Decreased breath sounds at the bases. HEART: Without murmur or gallop. She is tachycardic. ABDOMEN: Soft, nontender, with some vague abdominal tenderness without CVA tenderness. EXTREMITIES: Without cyanosis, clubbing, or edema. RECTAL AND GENITAL: Deferred. NEUROLOGIC: No focal neurological abnormalities. IMPRESSION AND PLAN: The patient has urinary tract infection with sepsis. She is on vancomycin and meropenem. Will await the results of her cultures. I will dictate my findings to Dr. Webster. Dictated By: THUY BAIG MD, JD/JOAN Conf#: [id number] DID#: [id number]
--- NOTE | 2016-12-27 14:51 | CONS ---
Date/Time of Note Date/Time of Note DATE: 12/27/16 TIME: : Assessment/Plan Assessment/Plan Chief Complaint/Hosp Course The patient is a 61 year old female with end stage metastatic cervical cancer who has been receiving palliative XRT for her vaginal bleeding and is now admitted with severe anemia and urosepsis. It was explained to the patient's daughter that the patient has an extremely poor prognosis and is actively deteriorating. I have also told her that we need to involve our palliative care colleagues and consider hospice care at this time. Pt is certainly not a candidate for any more chemotherapy or radiation at this time. The patient's daughter verbalized understanding of her mother's declining condition. #Metastatic Cervical Cancer -pt is no longer a candidate for any cancer treatment -will consult palliative care -pt should be place on hospice # Acute anemia likely secondary to her underlying malignancy and sepsis -will transfuse 2 units of PRBCs at this time # Urosepsis with GNR in urine -appreciate ID recs -continue meropenem and vancomycin # Severe thrombocytopenia, secondary to chemotherapy and bone marrow suppression from prior chemotherapy. No e/o DIC or TTP -platelets are < 20K -will monitor for now and transfuse if patient begins to bleed again #h/o LLE DVT -continue to hold Eliquis as platelets are less than 50K and she recently had a vaginal bleed Approximately 40 min were spent at patient's bedside and in coordination of her care Problems: Consultation Date/Type/Reason Admit Date/Time Dec 26, 2016 at 19:38 Initial Consult Date December 27, 2016 Type of Consultation: Oncology Reason for Consultation metastatic uterine cancer Referring Provider: RANI JACKSON MD 24 HR Interval Summary Free Text/Dictation The patient is a 61 year old female with end stage metastatic cervical cancer who has progressed through carboplatin/ taxol. Pt had severe thrombocytopenia which made further chemotherapy difficult to given. On 12/02 she received 50% dose of single agent Gemzar with resulting severe anemia and thrombocytopenia. At the time she was also noted to be vaginally bleeding. During that admission she was treated for a URI and was started on palliative XRT with Dr. Amor . Over the past few days, per the daughter, patient has become less responsive, lethargic and no eating. Pt had her last dose of radiation on Monday but in the evening was brought to [facility] for worsening symptoms. Pt was found to have a severe lactic acidosis with a lactate of 17, hypercalcemic with a Calcium of 12 and with worsening hyperbilirubinemia with a T bili of 10. Pt is currently lethargic and not able to follow commands.Per the daughter there have been no further episodes of vaginal bleeding. UCx demonstrates GNR and patient has been started on Vancomycin and meropenem for GNR urosepsis. Subjective hx not possible: pt critical Exam/Review of Systems Vital Signs Vitals Vital Signs Date Time Temp Pulse Resp B/P Pulse Ox O2 Delivery O2 Flow Rate FiO2 12/27/16 12:20 119 12/27/16 11:51 97.8 16 100/55 97 12/27/16 07:55 Room Air 12/27/16 00:00 Exam Constitutional: distress, frail, non-verbal, other (cachetic) Psych: confusion, depression Head: normocephalic Eyes: nl conjunctiva ENMT: nl external ears & nose Neck: non-tender, supple Respiratory: clear to auscultation, normal air movement Cardiovascular: other (tachycardic) Gastrointestinal: soft Musculoskeletal: nl extremities to inspection Extremities: normal pulses Results Result Diagram: 12/27/16 0552 12/27/16 0552 Results 24 hrs Laboratory Tests Test 12/26/16 17:30 12/26/16 18:07 12/26/16 18:12 12/26/16 19:00 White Blood Count 16.8 #H Red Blood Count 2.41 L Hemoglobin 8.6 L Hematocrit 25.1 L Mean Corpuscular Volume 104.1 H Mean Corpuscular Hemoglobin 35.7 H Mean Corpuscular Hemoglobin Concent 34.3 Red Cell Distribution Width 24.9 H Platelet Count 24 #*L Mean Platelet Volume 12.3 H Neutrophils % 94.0 H Band Neutrophils % 1.0 Lymphocytes % 2.0 L Monocytes % 3.0 Nucleated Red Blood Cells % 4.0 H Neutrophils # 15.8 H Lymphocytes # 0.3 L Monocytes # 0.5 Platelet Estimate PLT APPEAR DECREASED Anisocytosis 1+ Macrocytosis 1+ Prothrombin Time 26.9 H Prothrombin Time Ratio 2.1 INR International Normalized Ratio 2.45 Activated Partial Thromboplast Time 41.1 H Sodium Level 134 L Potassium Level 4.2 Chloride Level 93 L Carbon Dioxide Level 18 L Anion Gap 27 H Blood Urea Nitrogen 23 H Creatinine 0.90 Glucose Level 77 Lactic Acid Level 17.0 *H 14.7 *H Calcium Level 13.0 H Total Bilirubin 9.9 H Direct Bilirubin 7.90 H Indirect Bilirubin 2.0 H Aspartate Amino Transf (AST/SGOT) 123 H Alanine Aminotransferase (ALT/SGPT) 46 Alkaline Phosphatase 285 H Troponin I < 0.012 Total Protein 7.1 Albumin 3.1 L Globulin 4.00 H Albumin/Globulin Ratio 0.77 Urine Color GLORY Urine Clarity CLOUDY Urine pH 5.5 Urine Specific [place] 1.020 Urine Ketones TRACE H Urine Nitrite POSITIVE H Urine Bilirubin 3+ H Urine Ictotest POSITIVE Urine Urobilinogen 4.0 E.U./dL H Urine Leukocyte Esterase 3+ H Urine Microscopic RBC 10-25 Urine Microscopic WBC >200 Urine Transitional Epithelial Cells FEW Urine Bacteria MANY Urine Hemoglobin 3+ H Urine Glucose NEGATIVE Urine Total Protein 1+ H Bedside Urine pH (LAB) 5.5 Bedside Urine Protein (LAB) 2+ H Bedside Urine Glucose (UA) Negative Bedside Urine Ketones (LAB) Trace H Bedside Urine Blood 3+ H Bedside Urine Nitrite (LAB) Negative Bedside Urine Leukocyte Esterase (L 3+ H Test 12/26/16 21:18 12/27/16 05:52 Lactic Acid Level 12.2 *H White Blood Count 12.0 #H Red Blood Count 1.98 L Hemoglobin 7.0 L Hematocrit 20.7 L Mean Corpuscular Volume 104.5 H Mean Corpuscular Hemoglobin 35.4 H Mean Corpuscular Hemoglobin Concent 33.8 Red Cell Distribution Width 25.7 H Platelet Count 15 #*L Mean Platelet Volume Neutrophils % 85.7 H Lymphocytes % 6.0 L Monocytes % 6.9 Eosinophils % 0.1 Basophils % 0.1 Nucleated Red Blood Cells % 1.6 H Neutrophils # 10.3 H Lymphocytes # 0.7 L Monocytes # 0.8 Eosinophils # 0.0 Basophils # 0.0 Nucleated Red Blood Cells # 0.2 H Sodium Level 142 Potassium Level 3.6 Chloride Level 107 # Carbon Dioxide Level 18 L Anion Gap 21 H Blood Urea Nitrogen 24 H Creatinine 0.78 Glucose Level 75 Calcium Level 11.7 H Medications Medications Current Medications Sodium Chloride (NS) 1,000 ml @ 125 mls/hr Q8H IV Last administered on t 12:03; Admin Dose 125 MLS/HR; Start 12/26/16 at 23:00 Acetaminophen 500 mg 500 mg Q4H PRN PO PAIN AND OR ELEVATED TEMP; Start at 23:00 Meropenem (Merrem 1 Gm/100 ml (Pmx)) 100 ml @ 200 mls/hr Q12 IVPB Last administered on 12/27/16 07:56; Admin Dose 200 MLS/HR; Start 12/27/16 at 09:00 Ondansetron HCl (Zofran Inj) 4 mg Q4H PRN IV NAUSEA AND/OR VOMITING; Start at 23:00 Morphine Sulfate 2 mg 2 mg Q3H PRN IV PAIN LEVEL 4-6; Start 12/26/16 at 23:00 Vancomycin HCl (Vancocin) 100 ml @ 100 mls/hr Q12H IVPB Last administered on 12:01; Admin Dose 100 MLS/HR; Start 12/27/16 at 10:00 Miscellaneous Information (*Rx Drug Level Order Reminder*) VANCOMYCIN TROUGH @ 09... ONCE ONCE XX ; Start 12/28/16 at 09:00; Stop 12/28/16 at 09:01 DIONISIO ZALDIVAR M.D. Dec 27, 2016 14:36
[2016-12-27 15:52] LABS: HEMOGLOBIN 8.6 g/dl (12.0-16.0); PLATELET COUNT 24 10^3/UL (140-415)
[2016-12-27 15:53] LABS: WHITE BLOOD COUNT 16.8 10^3/ul (4.8-10.8)
[2016-12-27] MEDS ORDERED: VANCOMYCIN 750 MG in SOD CHLORIDE 0.9% 150 ML IVPB SCH (21:00)
[2016-12-28] VITALS (15 sets, daily range): BP systolic 87–114; BP diastolic 54–69; PULSE 110–119; RESP 16–22
[2016-12-28] MEDS: SOD CHLORIDE 0.9% 1,000 ML IV SCH ×3 (07:00→23:00)
[2016-12-28] MEDS: MEROPENEM 1 GM/100 ML (PMX) 100 ML IVPB SCH (09:46)
[2016-12-28 10:30] LABS: ADD SCAN DIFF NO
[2016-12-28 10:36] LABS: ABNORMAL IP MESSAGE 1; BASOPHIL # 0.1 10^3/ul (0.0-0.1); BASOPHILS % 0.3 % (0.0-2.0); EOSINOPHILS % 0.1 % (0.0-7.0); HEMATOCRIT 32.3 % (37.0-47.0); HEMOGLOBIN 10.8 g/dl (12.0-16.0); LYMPHOCYTES # 0.7 10^3/ul (0.8-2.9); LYMPHOCYTES % 4.3 % (15.0-51.0); MEAN CORPUSCULAR HEMOGLOBIN 32.8 pg (29.0-33.0); MEAN CORPUSCULAR HGB CONC 33.4 g/dl (32.0-37.0); MEAN CORPUSCULAR VOLUME 98.2 fl (82.0-101.0); MEAN PLATELET VOLUME 14.1 fl (7.4-10.4); MONOCYTE # 1.3 10^3/ul (0.3-0.9); MONOCYTES % 8.2 % (0.0-11.0); NEUTROPHIL # 13.3 10^3/ul (1.6-7.5); NEUTROPHILS % 85.6 % (39.0-77.0); NUCLEATED RED BLOOD CELLS # 0.3 10^3/ul (0.0-0.0); NUCLEATED RED BLOOD CELLS% 1.9 /100WBC (0.0-0.0); RED BLOOD COUNT 3.29 10^6/ul (4.20-5.40); RED CELL DISTRIBUTION WIDTH 24.2 % (11.5-14.5); WHITE BLOOD COUNT 15.5 10^3/ul (4.8-10.8)
[2016-12-28 10:43] LABS: PLATELET COUNT 20 10^3/UL (140-415)
[2016-12-28] MEDS: VANCOMYCIN 500MG/NS (PMX) 100 ML IVPB SCH (11:01)
[2016-12-28 11:06] LABS: CALCIUM 11.7 mg/dl (8.4-10.2); CREATININE 0.68 mg/dl (0.44-1.00); POTASSIUM 3.6 mmol/L (3.5-5.1)
[2016-12-28] MEDS ORDERED: LEVOFLOXACIN 250 MG TAB PO ONE (12:30)
--- NOTE | 2016-12-28 12:38 | PN ---
DATE: 12/28/2016 SUBJECTIVE: No acute changes. The patient is very weak, lying comfortably in bed. She is afebrile . LABORATORY DATA: WBC today 15.5, H and H 10.8 and 32.3, platelets 20, neutrophils 85.6. BUN 23, cr eatinine 0.68. ANTIMICROBIALS: The patient is on: 1. IV vancomycin. 2. Merrem. DIAGNOSTICS: Chest x-ray on admission revealed no pneumonia. INDWELLINGS: Right chest Port-A-Cath. PHYSICAL EXAMINATION: GENERAL: This is a cachectic, very weak and chronically ill-appearing, middle-aged woman who is in no distress. HEENT: Head atraumatic, normocephalic. Sclerae anicteric. Buccal mucosa dry. NECK: Supple, trachea midline. CHEST: Rise symmetrical. Breath sounds diminished. HEART: S1, S2. ABDOMEN: Soft, bowel sounds present. EXTREMITIES: Without cyanosis. ASSESSMENT: 1. Urinary tract infection with urine culture growing Escherichia coli susceptible to all antibioti cs. 2. Metastatic cervical cancer. 3. Acute on chronic anemia. 4. Thrombocytopenia. 5. History of left lower extremity deep venous thrombosis. 6. Severe cachexia. PLAN: The patient is doing poorly. She is no longer a candidate for any cancer treatment as per on cology note. We will change antibiotics to oral Levaquin. The patient is going to be seen by palli ative care team and possible hospice evaluation. Dictated By: JESSY OHARA PHYSICIAN GYNECOLOGIST for [facility] Conf#: [id number] DID#: [id number]
--- NOTE | 2016-12-28 14:06 | CONS ---
Date/Time of Note Date/Time of Note DATE: 12/28/16 TIME: 13:59 Assessment/Plan Assessment/Plan Chief Complaint/Hosp Course The patient is a 61 year old female with end stage metastatic cervical cancer who has been receiving palliative XRT for her vaginal bleeding and is now admitted with severe anemia and urosepsis. It was explained to the patient's daughter that the patient has an extremely poor prognosis and is actively deteriorating. I have also told her that we need to involve our palliative care colleagues and consider hospice care at this time. Pt is certainly not a candidate for any more chemotherapy or radiation at this time. The patient's daughter verbalized understanding of her mother's declining condition. #Metastatic Cervical Cancer -pt is no longer a candidate for any cancer treatment -will consult palliative care -pt should be place on hospice # Acute anemia likely secondary to her underlying malignancy and sepsis -pt responded well to 2 units of PRBCs # Urosepsis with GNR in urine -appreciate ID recs -pt is now on Levaquin # Severe thrombocytopenia, secondary to chemotherapy and bone marrow suppression from prior chemotherapy. No e/o DIC or TTP -platelets are < 20K -will monitor for now and transfuse if patient begins to bleed again #h/o LLE DVT -continue to hold Eliquis as platelets are less than 50K and she recently had a vaginal bleed Approximately 40 min were spent at patient's bedside and in coordination of her care Problems: Consultation Date/Type/Reason Admit Date/Time Dec 26, 2016 at 19:38 Initial Consult Date December 27, 2016 Type of Consultation: Oncology Reason for Consultation metastatic cervical cancer Referring Provider: RANI JACKSON MD 24 HR Interval Summary Free Text/Dictation pt is doing poorly. continues on antibiotics for urosepsis Exam/Review of Systems Vital Signs Vitals Vital Signs Date Time Temp Pulse Resp B/P Pulse Ox O2 Delivery O2 Flow Rate FiO2 12/28/16 12:11 115 12/28/16 11:40 98.4 16 101/62 98 12/27/16 07:55 Room Air 12/27/16 00:00 Intake and Output 12/27/16 12/27/16 12/28/16 15:00 23:00 07:00 Intake Total 100 ml 1280 ml 890 ml Balance 100 ml 1280 ml 890 ml Exam Constitutional: alert, distress, frail, oriented Psych: confusion, depression Head: normocephalic Eyes: nl conjunctiva ENMT: nl external ears & nose Neck: non-tender, supple Respiratory: clear to auscultation Cardiovascular: regular rate and rhythm Gastrointestinal: soft Musculoskeletal: nl extremities to inspection, nl gait and stance Neurological: lethargic Results Result Diagram: 12/28/16 0922 12/28/16 0922 Results 24 hrs Laboratory Tests Test 12/28/16 05:28 12/28/16 09:22 Lab Scanned Report BLOOD TRANSFUSION White Blood Count 15.5 #H Red Blood Count 3.29 #L Hemoglobin 10.8 #L Hematocrit 32.3 #L Mean Corpuscular Volume 98.2 Mean Corpuscular Hemoglobin 32.8 Mean Corpuscular Hemoglobin Concent 33.4 Red Cell Distribution Width 24.2 H Platelet Count 20 #*L Mean Platelet Volume 14.1 H Neutrophils % 85.6 H Lymphocytes % 4.3 L Monocytes % 8.2 Eosinophils % 0.1 Basophils % 0.3 Nucleated Red Blood Cells % 1.9 H Neutrophils # 13.3 H Lymphocytes # 0.7 L Monocytes # 1.3 H Eosinophils # 0.0 Basophils # 0.1 Nucleated Red Blood Cells # 0.3 H Sodium Level 148 H Potassium Level 3.6 Chloride Level 113 H Carbon Dioxide Level 14 L Anion Gap 25 H Blood Urea Nitrogen 23 H Creatinine 0.68 Glucose Level 54 #L Calcium Level 11.7 H Vancomycin Level Trough 16.9 Medications Medications Current Medications Sodium Chloride (NS) 1,000 ml @ 125 mls/hr Q8H IV Last administered on t 21:32; Admin Dose 125 MLS/HR; Start 12/26/16 at 23:00 Acetaminophen (Tylenol Tab) 500 mg Q4H PRN PO PAIN AND OR ELEVATED TEMP; Start 12/26/16 at 23:00 Ondansetron HCl (Zofran Inj) 4 mg Q4H PRN IV NAUSEA AND/OR VOMITING; Start at 23:00 Morphine Sulfate (morphine) 2 mg Q3H PRN IV PAIN LEVEL 4-6; Start 12/26/16 at 23:00 Levofloxacin (Levaquin) 250 mg DAILY@06 PO ; Start 12/29/16 at 06:00 DIONISIO ZALDIVAR M.D. Dec 28, 2016 14:06
[2016-12-28] MEDS: morphine 2 MG INJ IV PRN ×2 (15:24→21:50)
--- NOTE | 2016-12-28 17:40 | PN ---
Date/Time of Note Date/Time of Note DATE: 12/28/16 TIME: 17:31 Assessment/Plan VTE Prophylaxis VTE Prophylaxis Intervention: SCD's Lines/Catheters IV Catheter Type (from Rust): PORT-A-CATH Urinary Cath still in place: No Assessment/Plan Chief Complaint/Hosp Course Patient remains tachycardic afebrile, lethargic but easily arousable. Problems: Assessment/Plan - Sepsis with shock secondary to E. coli urinary tract infection. Continue Levaquin. Dr. Medina is following infection disease consultation. - Metastatic cervical cancer. Dr. Ruiz is following in oncology consultation. Dr. Jean Baptiste is following in palliative care services consultation. - Anemia secondary to malignancy. - Thrombocytopenia secondary to bone marrow suppression. - Hypercalcemia, status post zoledronate. - Acute protein calorie malnutrition. - Left lower extremity DVTs Eliquis is on hold due to thrombocytopenia. Further recommendations based on clinical course. Plan of care discussed with Dr. Webster. Exam/Review of Systems Vital Signs Vitals Vital Signs Date Time Temp Pulse Resp B/P Pulse Ox O2 Delivery O2 Flow Rate FiO2 12/28/16 16:10 110 12/28/16 15:11 98.1 18 100/59 97 12/27/16 07:55 Room Air 12/27/16 00:00 Intake and Output 12/27/16 12/27/16 12/28/16 15:00 23:00 07:00 Intake Total 100 ml 1280 ml 890 ml Balance 100 ml 1280 ml 890 ml Exam Constitutional: frail, other (Hectic) Head: normocephalic Respiratory: normal air movement Cardiovascular: nl pulses Gastrointestinal: non-tender Extremities: normal pulses Results Result Diagram: 12/28/1622 12/28/16 0922 Results 24 hrs Laboratory Tests Test 12/28/16 05:28 12/28/16 09:22 12/28/16 14:35 Lab Scanned Report BLOOD TRANSFUSION White Blood Count 15.5 #H Red Blood Count 3.29 #L Hemoglobin 10.8 #L Hematocrit 32.3 #L Mean Corpuscular Volume 98.2 Mean Corpuscular Hemoglobin 32.8 Mean Corpuscular Hemoglobin Concent 33.4 Red Cell Distribution Width 24.2 H Platelet Count 20 #*L Mean Platelet Volume 14.1 H Neutrophils % 85.6 H Lymphocytes % 4.3 L Monocytes % 8.2 Eosinophils % 0.1 Basophils % 0.3 Nucleated Red Blood Cells % 1.9 H Neutrophils # 13.3 H Lymphocytes # 0.7 L Monocytes # 1.3 H Eosinophils # 0.0 Basophils # 0.1 Nucleated Red Blood Cells # 0.3 H Sodium Level 148 H Potassium Level 3.6 Chloride Level 113 H Carbon Dioxide Level 14 L Anion Gap 25 H Blood Urea Nitrogen 23 H Creatinine 0.68 Glucose Level 54 #L Calcium Level 11.7 H Vancomycin Level Trough 16.9 Lactic Acid Level 7.6 *H Medications Medications Current Medications Sodium Chloride (NS) 1,000 ml @ 125 mls/hr Q8H IV Last administered on 14:09; Admin Dose 125 MLS/HR; Start 12/26/16 at 23:00 Acetaminophen (Tylenol Tab) 500 mg Q4H PRN PO PAIN AND OR ELEVATED TEMP; Start 12/26/16 at 23:00 Ondansetron HCl (Zofran Inj) 4 mg Q4H PRN IV NAUSEA AND/OR VOMITING; Start at 23:00 Morphine Sulfate (morphine) 2 mg Q3H PRN IV PAIN LEVEL 4-6 Last administered on 12/28/16 15:24; Admin Dose 2 MG; Start 12/26/16 at 23:00 Levofloxacin (Levaquin) 250 mg DAILY@06 PO ; Start 12/29/16 at 06:00 AMNA LUCERO Dec 28, 2016 17:40
--- NOTE | 2016-12-28 19:23 | CONS ---
DATE OF ADMISSION: 12/26/2016 DATE OF CONSULTATION: 12/28/2016 HISTORY OF PRESENT ILLNESS: This is a 61-year-old female who has history of metastatic cervical can cer who I am seeing today for the first time and all the information that I have reviewed is from th e patient's medical records. The patient is noncommunicative. There [facility]. In reviewing medical records from Dr. Ruiz and from [facility], the danielle chu has a history of metastatic cervical cancer, who has not responded to aggressive intervention prior to this hospitalization including chemotherapy. The disease process has advanced. Apparentl y over the last couple weeks prior to this presentation, patient has become progressively more sanjana rgic post last round of radiation for symptomatic vaginal bleeding. Presented to the emergency room with profound fluid and electrolyte abnormalities and dehydration. The patient was diagnosed with Gram-negative dylan urosepsis and admitted. The admit date was 12/26/2016. The patient has been seen by Dr. Ruiz and Dr. Medina since admission. The patient is noncommunicative. I have been in her room already and have tried to stimulate her, but she does not open her eyes, does not respond to an y verbal stimulation. There are no family members in her room at this point. I will try to contact them. MEDICATIONS: Please refer to reconciliation sheets. ALLERGIES: NO KNOWN DRUG ALLERGIES. MAJOR MEDICAL PROBLEMS IN THE PAST: Germane to this consultation is per history of present illness. SOCIAL HISTORY: Unknown. Reviewing her chart states that she lives with her family. There is no p rior history of alcohol or tobacco or drug use. REVIEW OF SYSTEMS: Cannot be obtained. The patient is noncommunicative. PHYSICAL EXAMINATION: VITAL SIGNS: Blood pressure 109/59, pulse 113, respirations of 18, temperature of 98.1 degrees, 97% saturation on room air. GENERAL: She is an emaciated-appearing gaunt female who appears to be severely malnourished on exam ination with malar eminence, intercostal retractions, loss of skeletal ____ in bilateral upper and l ower extremities. Inner eminence retractions. Appearing gaunt and moribund. CHEST: Shows distant breath sounds throughout both lung [place]. COR: S1, S2 without S3, S4, murmur, gallop, rub. She has rapid rate, regular rhythm on examination . ABDOMEN: Grossly benign. NEUROLOGIC: She has nonpurposeful movements on examination. She is not responding and doing any pu rposeful activity. LABORATORY TESTS: Reviewed. ASSESSMENT AND PLAN: This is a very tragic presentation of this 61-year-old female whose end-stage metastatic cervical cancer has failed any aggressive intervention. She is a CHEMICAL CODE ONLY. Sh e is admitted with sepsis syndrome. There are no family members available at this time. I will con tact them as soon as possible. I completely agree that patient would benefit from hospice care, pre ferably at home and preferably as soon as family members can take care of her and arrangements can b e made. I will schedule a family conference as soon as possible. Dictated By: HEATHER CABRERA MD LP/NTS Conf#: [id number] DID#: [id number] CC: RANI JACKSON MD;*EndCC*
[2016-12-29] VITALS (11 sets, daily range): BP systolic 82–106; BP diastolic 50–76; PULSE 106–126; RESP 17–20
[2016-12-29] MEDS: morphine 2 MG INJ IV PRN ×3 (00:54→16:59)
[2016-12-29] MEDS: SOD CHLORIDE 0.9% 1,000 ML IV SCH ×3 (07:00→23:00)
[2016-12-29 07:57] LABS: ADD SCAN DIFF NO
[2016-12-29 08:18] LABS: ABNORMAL IP MESSAGE 1; BASOPHILS % 0.1 % (0.0-2.0); HEMATOCRIT 31.2 % (37.0-47.0); HEMOGLOBIN 10.5 g/dl (12.0-16.0); LYMPHOCYTES # 0.8 10^3/ul (0.8-2.9); LYMPHOCYTES % 5.6 % (15.0-51.0); MEAN CORPUSCULAR HEMOGLOBIN 33.5 pg (29.0-33.0); MEAN CORPUSCULAR HGB CONC 33.7 g/dl (32.0-37.0); MEAN CORPUSCULAR VOLUME 99.7 fl (82.0-101.0); MONOCYTE # 1.4 10^3/ul (0.3-0.9); NEUTROPHIL # 11.5 10^3/ul (1.6-7.5); NEUTROPHILS % 82.4 % (39.0-77.0); NUCLEATED RED BLOOD CELLS # 0.4 10^3/ul (0.0-0.0); NUCLEATED RED BLOOD CELLS% 2.9 /100WBC (0.0-0.0); RED BLOOD COUNT 3.13 10^6/ul (4.20-5.40); RED CELL DISTRIBUTION WIDTH 24.7 % (11.5-14.5); WHITE BLOOD COUNT 13.9 10^3/ul (4.8-10.8)
[2016-12-29 08:29] LABS: PLATELET COUNT 13 10^3/UL (140-415)
[2016-12-29 09:15] LABS: CALCIUM 10.7 mg/dl (8.4-10.2); CREATININE 0.78 mg/dl (0.44-1.00); POTASSIUM 3.8 mmol/L (3.5-5.1)
[2016-12-29] MEDS: LEVOFLOXACIN 250 MG TAB PO SCH (10:14)
--- NOTE | 2016-12-29 10:23 | CONS ---
Date/Time of Note Date/Time of Note DATE: 12/29/16 TIME: 10:21 Assessment/Plan Assessment/Plan Chief Complaint/Hosp Course The patient is a 61 year old female with end stage metastatic cervical cancer who has been receiving palliative XRT for her vaginal bleeding and is now admitted with severe anemia and urosepsis. It was explained to the patient's daughter that the patient has an extremely poor prognosis and is actively deteriorating. I have also told her that we need to involve our palliative care colleagues and consider hospice care at this time. Pt is certainly not a candidate for any more chemotherapy or radiation at this time. The patient's daughter verbalized understanding of her mother's declining condition. #Metastatic Cervical Cancer -pt is no longer a candidate for any cancer treatment -appreciate palliative care recommendations -family has agreed on hospice care # Acute anemia likely secondary to her underlying malignancy and sepsis -pt responded well to 2 units of PRBCs # Urosepsis with GNR in urine -appreciate ID recs -pt is now on Levaquin # Severe thrombocytopenia, secondary to chemotherapy and bone marrow suppression from prior chemotherapy. No e/o DIC or TTP -platelets are < 20K -will monitor for now and transfuse if patient begins to bleed again #h/o LLE DVT -continue to hold Eliquis as platelets are less than 50K and she recently had a vaginal bleed Approximately 40 min were spent at patient's bedside and in coordination of her care Problems: (1) Cervical cancer Status: Chronic (2) Septic shock Status: Acute (3) Thrombocytopenia Status: Acute Consultation Date/Type/Reason Admit Date/Time Dec 26, 2016 at 19:38 Initial Consult Date December 27, 2016 Type of Consultation: Oncology Reason for Consultation metastatic cervical cancer Referring Provider: RANI JACKSON MD 24 HR Interval Summary Free Text/Dictation pt is extremely weak and lethargic. no bleeding vaginally Exam/Review of Systems Vital Signs Vitals Vital Signs Date Time Temp Pulse Resp B/P Pulse Ox O2 Delivery O2 Flow Rate FiO2 12/29/16 08:00 109 12/29/16 07:41 97.1 18 103/67 98 12/27/16 07:55 Room Air 12/27/16 00:00 Intake and Output 12/28/16 12/28/16 12/29/16 15:00 23:00 07:00 Intake Total 620 ml 1340 ml Balance 620 ml 1340 ml Exam Constitutional: distress, frail, other (lethargic) Psych: depression Head: normocephalic Eyes: nl conjunctiva ENMT: nl external ears & nose Neck: non-tender, supple Respiratory: clear to auscultation, normal air movement Cardiovascular: nl pulses, regular rate and rhythm Gastrointestinal: soft Musculoskeletal: nl extremities to inspection Results Result Diagram: 12/29/16 0700 12/29/16 0700 Results 24 hrs Laboratory Tests Test 12/28/16 14:35 12/29/16 05:33 12/29/16 07:00 Lactic Acid Level 7.6 *H Lab Scanned Report BLOOD TRANSFUSION White Blood Count 13.9 H Red Blood Count 3.13 L Hemoglobin 10.5 L Hematocrit 31.2 L Mean Corpuscular Volume 99.7 Mean Corpuscular Hemoglobin 33.5 H Mean Corpuscular Hemoglobin Concent 33.7 Red Cell Distribution Width 24.7 H Platelet Count 13 #*L Mean Platelet Volume Neutrophils % 82.4 H Lymphocytes % 5.6 L Monocytes % 10.0 Eosinophils % 0.0 Basophils % 0.1 Nucleated Red Blood Cells % 2.9 H Neutrophils # 11.5 H Lymphocytes # 0.8 Monocytes # 1.4 H Eosinophils # 0.0 Basophils # 0.0 Nucleated Red Blood Cells # 0.4 H Sodium Level 149 H Potassium Level 3.8 Chloride Level 117 H Carbon Dioxide Level 11 L Anion Gap 25 H Blood Urea Nitrogen 26 H Creatinine 0.78 Glucose Level 80 Calcium Level 10.7 H Medications Medications Current Medications Sodium Chloride (NS) 1,000 ml @ 125 mls/hr Q8H IV Last administered on 07:00; Admin Dose 125 MLS/HR; Start 12/26/16 at 23:00 Acetaminophen (Tylenol Tab) 500 mg Q4H PRN PO PAIN AND OR ELEVATED TEMP; Start 12/26/16 at 23:00 Ondansetron HCl (Zofran Inj) 4 mg Q4H PRN IV NAUSEA AND/OR VOMITING; Start at 23:00 Morphine Sulfate (morphine) 2 mg Q3H PRN IV PAIN LEVEL 4-6 Last administered on 12/29/16 07:37; Admin Dose 2 MG; Start 12/26/16 at 23:00 Levofloxacin (Levaquin) 250 mg DAILY@06 PO Last administered on 12/29/16t 10:14 ; Admin Dose 250 MG; Start 12/29/16 at 06:00 DIONISIO ZALDIVAR M.D. Dec 29, 2016 10:23
--- NOTE | 2016-12-29 11:14 | CONS ---
Date/Time of Note Date/Time of Note DATE: 12/29/16 TIME: 11:03 Consultation Date/Type/Reason Admit Date/Time Dec 26, 2016 at 19:38 Initial Consult Date Type of Consultation: Palliative Care Reason for Consultation #Metastatic Cervical Cancer # Urosepsis with GNR in urine Delirium Malnutrition - Referring Provider: RANI JACKSON MD 24 HR Interval Summary Free Text/Dictation Family conference today with patient's 3 children, patient's apparently is having great difficulties coping with his 's medical illness and could not participate in today's conference. Oldest brother is the decision maker but he states he collaborates all ongoing level of care with the entire family. They have a clear understanding of her underlying serious medical illness their hopes are that she does not suffer acceptable quality of life with the back and home with them under hospice care. However they expressed a desire for a second opinion possibly at [facility]. We did discuss the criteria for inpatient hospice care and outpatient hospice care my suggestion was home with hospice care. My impressions were that this was a very strong family with deep concerns for the level of discomfort that the mother is experiencing. Communication preferences are one-to-one with caregivers I have given him my direct cell phone number they have been in contact with Dr. Mohan . Goals of care discussed estimated prognosis discussed which I believe is less than a month. Ethical issues and surrogate issues have been addressed CODE STATUS will be changed to DO NOT RESUSCITATE. Recommendation Home with hospice when stable, encouraged family to seek out second opinions as they wish. Hospice with Farsi speaking nurses. Exam/Review of Systems Vital Signs Vitals Vital Signs Date Time Temp Pulse Resp B/P Pulse Ox O2 Delivery O2 Flow Rate FiO2 12/29/16 08:00 109 12/29/16 07:41 97.1 18 103/67 98 12/27/16 07:55 Room Air 12/27/16 00:00 Intake and Output 12/28/16 12/28/16 12/29/16 15:00 23:00 07:00 Intake Total 620 ml 1340 ml Balance 620 ml 1340 ml Results Result Diagram: 12/29/16 0700 12/29/16 0700 Results 24 hrs Laboratory Tests Test 12/28/16 14:35 12/29/16 05:33 12/29/16 07:00 Lactic Acid Level 7.6 *H Lab Scanned Report BLOOD TRANSFUSION White Blood Count 13.9 H Red Blood Count 3.13 L Hemoglobin 10.5 L Hematocrit 31.2 L Mean Corpuscular Volume 99.7 Mean Corpuscular Hemoglobin 33.5 H Mean Corpuscular Hemoglobin Concent 33.7 Red Cell Distribution Width 24.7 H Platelet Count 13 #*L Mean Platelet Volume Neutrophils % 82.4 H Lymphocytes % 5.6 L Monocytes % 10.0 Eosinophils % 0.0 Basophils % 0.1 Nucleated Red Blood Cells % 2.9 H Neutrophils # 11.5 H Lymphocytes # 0.8 Monocytes # 1.4 H Eosinophils # 0.0 Basophils # 0.0 Nucleated Red Blood Cells # 0.4 H Sodium Level 149 H Potassium Level 3.8 Chloride Level 117 H Carbon Dioxide Level 11 L Anion Gap 25 H Blood Urea Nitrogen 26 H Creatinine 0.78 Glucose Level 80 Calcium Level 10.7 H Medications Medications Current Medications Sodium Chloride (NS) 1,000 ml @ 125 mls/hr Q8H IV Last administered on 07:00; Admin Dose 125 MLS/HR; Start 12/26/16 at 23:00 Acetaminophen (Tylenol Tab) 500 mg Q4H PRN PO PAIN AND OR ELEVATED TEMP; Start 12/26/16 at 23:00 Ondansetron HCl (Zofran Inj) 4 mg Q4H PRN IV NAUSEA AND/OR VOMITING; Start at 23:00 Morphine Sulfate (morphine) 2 mg Q3H PRN IV PAIN LEVEL 4-6 Last administered on 12/29/16 07:37; Admin Dose 2 MG; Start 12/26/16 at 23:00 Levofloxacin (Levaquin) 250 mg DAILY@06 PO Last administered on 12/29/16 10:14 ; Admin Dose 250 MG; Start 12/29/16 at 06:00 HEATHER CABRERA Dec 29, 2016 11:14
--- NOTE | 2016-12-29 14:22 | CONS ---
Date/Time of Note Date/Time of Note DATE: 12/29/16 TIME: 14:20 Assessment/Plan Assessment/Plan Chief Complaint/Hosp Course SUBJECTIVE: No acute changes. Lethargic, nad ANTIMICROBIALS: Levaquin DIAGNOSTICS: Chest x-ray on admission revealed no pneumonia. INDWELLINGS: Right chest Port-A-Cath. PHYSICAL EXAMINATION: GENERAL: This is a cachectic, very weak and chronically ill-appearing, middle- aged woman who is in no distress. HEENT: Head atraumatic, normocephalic. Sclerae anicteric. Buccal mucosa dry. NECK: Supple, trachea midline. CHEST: Rise symmetrical. Breath sounds diminished. HEART: S1, S2. ABDOMEN: Soft, bowel sounds present. EXTREMITIES: Without cyanosis. ASSESSMENT: 1. Urinary tract infection with urine culture growing Escherichia coli susceptible to all antibiotics. 2. Metastatic cervical cancer. 3. Acute on chronic anemia. 4. Thrombocytopenia. 5. History of left lower extremity deep venous thrombosis. 6. Severe cachexia. PLAN: Clinically unchanged, continue supportive care, pending dc home with hospice staff Problems: Consultation Date/Type/Reason Admit Date/Time Dec 26, 2016 at 19:38 Initial Consult Date Type of Consultation: ID Referring Provider: RANI JACKSON MD Exam/Review of Systems Vital Signs Vitals Vital Signs Date Time Temp Pulse Resp B/P Pulse Ox O2 Delivery O2 Flow Rate FiO2 12/29/16 12:00 112 12/29/16 11:52 97.6 17 105/76 95 12/27/16 07:55 Room Air 12/27/16 00:00 Intake and Output 12/28/16 12/28/16 12/29/16 15:00 23:00 07:00 Intake Total 620 ml 1340 ml Balance 620 ml 1340 ml Results Result Diagram: 12/29/16 0700 12/29/16 0700 Results 24 hrs Laboratory Tests Test 12/28/16 14:35 12/29/16 05:33 12/29/16 07:00 Lactic Acid Level 7.6 *H Lab Scanned Report BLOOD TRANSFUSION White Blood Count 13.9 H Red Blood Count 3.13 L Hemoglobin 10.5 L Hematocrit 31.2 L Mean Corpuscular Volume 99.7 Mean Corpuscular Hemoglobin 33.5 H Mean Corpuscular Hemoglobin Concent 33.7 Red Cell Distribution Width 24.7 H Platelet Count 13 #*L Mean Platelet Volume Neutrophils % 82.4 H Lymphocytes % 5.6 L Monocytes % 10.0 Eosinophils % 0.0 Basophils % 0.1 Nucleated Red Blood Cells % 2.9 H Neutrophils # 11.5 H Lymphocytes # 0.8 Monocytes # 1.4 H Eosinophils # 0.0 Basophils # 0.0 Nucleated Red Blood Cells # 0.4 H Sodium Level 149 H Potassium Level 3.8 Chloride Level 117 H Carbon Dioxide Level 11 L Anion Gap 25 H Blood Urea Nitrogen 26 H Creatinine 0.78 Glucose Level 80 Calcium Level 10.7 H Medications Medications Current Medications Sodium Chloride (NS) 1,000 ml @ 125 mls/hr Q8H IV Last administered on 07:00; Admin Dose 125 MLS/HR; Start 12/26/16 at 23:00 Acetaminophen (Tylenol Tab) 500 mg Q4H PRN PO PAIN AND OR ELEVATED TEMP; Start 12/26/16 at 23:00 Ondansetron HCl (Zofran Inj) 4 mg Q4H PRN IV NAUSEA AND/OR VOMITING; Start at 23:00 Morphine Sulfate (morphine) 2 mg Q3H PRN IV PAIN LEVEL 4-6 Last administered on 12/29/16 07:37; Admin Dose 2 MG; Start 12/26/16 at 23:00 Levofloxacin (Levaquin) 250 mg DAILY@06 PO Last administered on 12/29/16 10:14 ; Admin Dose 250 MG; Start 12/29/16 at 06:00 JESSY OHARA NP Dec 29, 2016 14:21
[2016-12-29] MEDS ORDERED: NALOXONE (0.4 MG/ML) INJ IV ONE (16:30)
[2016-12-29] MEDS: LORAZEPAM 2 MG INJ IV PRN (16:59)
--- NOTE | 2016-12-29 20:14 | PN ---
Date/Time of Note Date/Time of Note DATE: 12/29/16 TIME: 20:04 Assessment/Plan Lines/Catheters [facility]from [facility]): PORT A CATH Urinary Cath still in place: No Assessment/Plan Assessment/Plan - Sepsis with shock secondary to E. coli urinary tract infection. Continue Levaquin. Dr. Medina is following infection disease consultation. - Metastatic cervical cancer. Dr. Ruiz is following in oncology consultation. Dr. Jean Baptiste is following in palliative care services consultation. - Anemia secondary to malignancy. - Thrombocytopenia secondary to bone marrow suppression. - Hypernatremia- monitor BMP - Hypercalcemia, status post zoledronate. - Acute protein calorie malnutrition. - Left lower extremity DVTs Eliquis is on hold due to thrombocytopenia. Further recommendations based on clinical course. Plan of care discussed with Dr. Webster. Subjective 24 Hr Interval Summary Free Text/Dictation sleeping, responsive to name/touch, afebrile, bp- hypotensive, son at bed side- all Qs answered.dw staff- Exam/Review of Systems Vital Signs Vitals Vital Signs Date Time Temp Pulse Resp B/P Pulse Ox O2 Delivery O2 Flow Rate FiO2 12/29/16 16:01 126 12/29/16 15:46 98.7 18 85/63 97 12/27/16 07:55 Room Air 12/27/16 00:00 Intake and Output 12/28/16 12/28/16 12/29/16 15:00 23:00 07:00 Intake Total 620 ml 1340 ml Balance 620 ml 1340 ml Exam Constitutional: alert, frail Respiratory: clear to auscultation, normal air movement Cardiovascular: nl pulses Gastrointestinal: non-tender, soft Musculoskeletal: nl extremities to inspection Extremities: normal pulses Neurological: lethargic Results Result Diagram: 12/29/16 0700 12/29/16 0700 Results 24 hrs Laboratory Tests Test 12/29/16 05:33 12/29/16 07:00 Lab Scanned Report BLOOD TRANSFUSION White Blood Count 13.9 H Red Blood Count 3.13 L Hemoglobin 10.5 L Hematocrit 31.2 L Mean Corpuscular Volume 99.7 Mean Corpuscular Hemoglobin 33.5 H Mean Corpuscular Hemoglobin Concent 33.7 Red Cell Distribution Width 24.7 H Platelet Count 13 #*L Mean Platelet Volume Neutrophils % 82.4 H Lymphocytes % 5.6 L Monocytes % 10.0 Eosinophils % 0.0 Basophils % 0.1 Nucleated Red Blood Cells % 2.9 H Neutrophils # 11.5 H Lymphocytes # 0.8 Monocytes # 1.4 H Eosinophils # 0.0 Basophils # 0.0 Nucleated Red Blood Cells # 0.4 H Sodium Level 149 H Potassium Level 3.8 Chloride Level 117 H Carbon Dioxide Level 11 L Anion Gap 25 H Blood Urea Nitrogen 26 H Creatinine 0.78 Glucose Level 80 Calcium Level 10.7 H Medications Medications Current Medications Sodium Chloride (NS) 1,000 ml @ 125 mls/hr Q8H IV Last administered on 15:59; Admin Dose 125 MLS/HR; Start 12/26/16 at 23:00 Acetaminophen (Tylenol Tab) 500 mg Q4H PRN PO PAIN AND OR ELEVATED TEMP; Start 12/26/16 at 23:00 Ondansetron HCl (Zofran Inj) 4 mg Q4H PRN IV NAUSEA AND/OR VOMITING; Start at 23:00 Levofloxacin (Levaquin) 250 mg DAILY@06 PO Last administered on 12/29/16 10:14 ; Admin Dose 250 MG; Start 12/29/16 at 06:00 Morphine Sulfate (morphine) 1 mg Q3H PRN IV PAIN LEVEL 4-6 Last administered on 12/29/16 16:59; Admin Dose 1 MG; Start 12/29/16 at 17:00 Lorazepam (Ativan) 0.25 mg Q6H PRN IV ANXIETY Last administered on 12/29/16 16 :59; Admin Dose 0.25 MG; Start 12/29/16 at 17:00 [place] FINNEY Dec 29, 2016 20:14
[2016-12-29] MEDS: DEXTROSE 5%-0.45% NACL 1,000 ML IV SCH (20:30)
[2016-12-29] MEDS ORDERED: SOD CHLORIDE 0.9% 250 ML IV ONE (21:30)
[2016-12-30] VITALS (13 sets, daily range): BP systolic 86–93; BP diastolic 55–65; PULSE 106–162; RESP 16–19
[2016-12-30] MEDS: LEVOFLOXACIN 250 MG TAB PO SCH (06:00)
[2016-12-30] MEDS: DEXTROSE 5%-0.45% NACL 1,000 ML IV SCH ×2 (06:30→17:14)
--- NOTE | 2016-12-30 07:17 | PN ---
DATE: 12/29/2016 ADDENDUM The patient was noted to be obtunded. The patient's last dose of IV morphine was early in the mornin g. I met with the patient's family regarding the patient's poor prognosis. They are inclining [facility] home hospice and they met with Dr. Garcia, who according to the family will come back and discu ss with them about home hospice. Meanwhile, the patient's family requested to keep her as comfortab le as possible. After giving a dose of Narcan the patient did become more awake; however, looked an xious. I discussed with the family about decreasing the dose of morphine, as well as adding Ativan for anxiety. The patient remains terminally ill. Dictated By: RANI WADE/JOAN Conf#: [id number] DID#: [id number]
--- NOTE | 2016-12-30 11:28 | CONS ---
Date/Time of Note Date/Time of Note DATE: 12/30/16 TIME: 11:22 Assessment/Plan Assessment/Plan Chief Complaint/Hosp Course The patient is a 61 year old female with end stage metastatic cervical cancer who has been receiving palliative XRT for her vaginal bleeding and is now admitted with severe anemia and urosepsis. It was explained to the patient's daughter that the patient has an extremely poor prognosis and is actively deteriorating. Pt is certainly not a candidate for any more chemotherapy or radiation at this time. The patient's daughter and eldest son have verbalized understanding of her mother's declining condition. #Metastatic Cervical Cancer -pt is no longer a candidate for any cancer treatment -appreciate palliative care involvement with the family and making patient DNR/ DNI -family has agreed on hospice care at home once she is stable for discharge # Acute anemia likely secondary to her underlying malignancy and sepsis -pt responded well to 2 units of PRBCs -Hg currently stable # Urosepsis with GNR in urine -appreciate ID recs -pt is now on Levaquin # Severe thrombocytopenia, secondary to chemotherapy and bone marrow suppression from prior chemotherapy. No e/o DIC or TTP -platelets are < 20K -will monitor for now and transfuse if patient begins to bleed again #h/o LLE DVT -continue to hold Eliquis as platelets are less than 50K and she recently had a vaginal bleed Approximately 40 min were spent at patient's bedside and in coordination of her care Problems: (1) Cervical cancer Status: Chronic (2) Septic shock Status: Acute (3) Hypercalcemia Status: Acute (4) Anemia Status: Acute (5) Thrombocytopenia Status: Acute (6) Abnormal LFTs Status: Acute Consultation Date/Type/Reason Admit Date/Time Dec 26, 2016 at 19:38 Initial Consult Date December 27, 2016 Type of Consultation: Oncology Reason for Consultation metastatic cervical cancer Referring Provider: RANI JACKSON MD 24 HR Interval Summary Free Text/Dictation pt is localizing to pain but otherwise lethargic and not responding to questions Exam/Review of Systems Vital Signs Vitals Vital Signs Date Time Temp Pulse Resp B/P Pulse Ox O2 Delivery O2 Flow Rate FiO2 12/30/16 08:11 106 12/30/16 07:32 97.2 17 88/61 100 12/27/16 07:55 Room Air 12/27/16 00:00 Intake and Output 12/29/16 12/29/16 12/30/16 15:00 23:00 07:00 Intake Total 200 ml 720 ml Balance 200 ml 720 ml Exam Constitutional: frail, non-verbal, other (cachetic) Psych: anxiety, confusion Head: normocephalic Eyes: nl conjunctiva ENMT: nl external ears & nose Neck: non-tender, supple Respiratory: clear to auscultation Cardiovascular: regular rate and rhythm Musculoskeletal: muscle weakness Results Result Diagram: 12/29/16 0700 12/29/16 0700 Medications Medications Current Medications Acetaminophen (Tylenol Tab) 500 mg Q4H PRN PO PAIN AND OR ELEVATED TEMP; Start 12/26/16 at 23:00 Ondansetron HCl (Zofran Inj) 4 mg Q4H PRN IV NAUSEA AND/OR VOMITING; Start at 23:00 Levofloxacin (Levaquin) 250 mg DAILY@06 PO Last administered on 12/29/16 10:14 ; Admin Dose 250 MG; Start 12/29/16 at 06:00 Morphine Sulfate (morphine) 1 mg Q3H PRN IV PAIN LEVEL 4-6 Last administered on 12/29/16 16:59; Admin Dose 1 MG; Start 12/29/16 at 17:00 Lorazepam 0.25 mg 0.25 mg Q6H PRN IV ANXIETY Last administered on 12/29/16 16: 59; Admin Dose 0.25 MG; Start 12/29/16 at 17:00 Dextrose/Sodium Chloride (D5-1/2ns) 1,000 ml @ 100 mls/hr Q10H IV Last administered on 12/30/16 06:30; Admin Dose 100 MLS/HR; Start 12/29/16 at 20:30 DIONISIO ZALDIVAR M.D. Dec 30, 2016 11:28
[2016-12-30 12:02] LABS: ADD SCAN DIFF NO
[2016-12-30 12:11] LABS: ABNORMAL IP MESSAGE 1; HEMATOCRIT 34.7 % (37.0-47.0); HEMOGLOBIN 12.1 g/dl (12.0-16.0); MEAN CORPUSCULAR HEMOGLOBIN 33.6 pg (29.0-33.0); MEAN CORPUSCULAR HGB CONC 34.9 g/dl (32.0-37.0); MEAN CORPUSCULAR VOLUME 96.4 fl (82.0-101.0); RED CELL DISTRIBUTION WIDTH 26.3 % (11.5-14.5)
[2016-12-30 12:25] LABS: CREATININE 1.04 mg/dl (0.44-1.00); POTASSIUM 3.8 mmol/L (3.5-5.1)
[2016-12-30 12:26] LABS: PLATELET COUNT 9 10^3/UL (140-415)
[2016-12-30 13:17] LABS: BURR CELLS 1+; LYMPHOCYTES # 0.6 10^3/ul (0.8-2.9); MONOCYTE # 0.6 10^3/ul (0.3-0.9); MYELOCYTES # 0.1; NEUTROPHIL # 9.7 10^3/ul (1.6-7.5); PLATELET ESTIMATE PLT APPEAR DECREASED; POLYCHROMASIA OCCASIONAL
--- NOTE | 2016-12-30 13:21 | CONS ---
Date/Time of Note Date/Time of Note DATE: 12/30/16 TIME: 13:19 Assessment/Plan Assessment/Plan Chief Complaint/Hosp Course SUBJECTIVE: No acute changes. All noted, s/p Narcan, nad ANTIMICROBIALS: Levaquin DIAGNOSTICS: Chest x-ray on admission revealed no pneumonia. INDWELLINGS: Right chest Port-A-Cath. PHYSICAL EXAMINATION: GENERAL: This is a cachectic, terminally ill-appearing, middle-aged woman who is in no distress. HEENT: Head atraumatic, normocephalic. Sclerae anicteric. Buccal mucosa dry. NECK: Supple, trachea midline. CHEST: Rise symmetrical. Breath sounds diminished. HEART: S1, S2. ABDOMEN: Soft, bowel sounds present. EXTREMITIES: Without cyanosis. ASSESSMENT: 1. Urinary tract infection with urine culture growing Escherichia coli susceptible to all antibiotics. 2. Metastatic cervical cancer. 3. Acute on chronic anemia. 4. Thrombocytopenia. 5. History of left lower extremity deep venous thrombosis. 6. Severe cachexia. PLAN: Clinically unchanged, continue supportive care, pending dc home with hospice staff Problems: Consultation Date/Type/Reason Admit Date/Time Dec 26, 2016 at 19:38 Type of Consultation: id Referring Provider: RANI JACKSON MD Exam/Review of Systems Vital Signs Vitals Vital Signs Date Time Temp Pulse Resp B/P Pulse Ox O2 Delivery O2 Flow Rate FiO2 12/30/16 12:10 108 12/30/16 11:32 96.4 16 90/65 100 12/27/16 07:55 Room Air 12/27/16 00:00 Intake and Output 12/29/16 12/29/16 12/30/16 15:00 23:00 07:00 Intake Total 200 ml 720 ml Balance 200 ml 720 ml Results Result Diagram: 12/30/16 1146 12/30/16 1146 Results 24 hrs Laboratory Tests Test 12/30/16 11:46 White Blood Count 11.0 #H Red Blood Count 3.60 L Hemoglobin 12.1 Hematocrit 34.7 L Mean Corpuscular Volume 96.4 Mean Corpuscular Hemoglobin 33.6 H Mean Corpuscular Hemoglobin Concent 34.9 Red Cell Distribution Width 26.3 H Platelet Count 9 #*L Mean Platelet Volume Neutrophils % 88.0 H Lymphocytes % 5.0 L Monocytes % 5.0 Myelocytes % 1.0 H Promyelocytes % 1.0 H Nucleated Red Blood Cells % 2.0 H Neutrophils # 9.7 H Lymphocytes # 0.6 L Monocytes # 0.6 Myelocytes # 0.1 Promyelocytes # 0.1 Differential Comment MANUAL DIFF Platelet Estimate PLT APPEAR DECREASED Polychromasia OCCASIONAL Sodium Level 147 H Potassium Level 3.8 Chloride Level 118 H Carbon Dioxide Level 15 L Anion Gap 18 #H Blood Urea Nitrogen 35 H Creatinine 1.04 H Glucose Level 191 # Calcium Level 10.0 Medications Medications Current Medications Acetaminophen (Tylenol Tab) 500 mg Q4H PRN PO PAIN AND OR ELEVATED TEMP; Start 12/26/16 at 23:00 Ondansetron HCl (Zofran Inj) 4 mg Q4H PRN IV NAUSEA AND/OR VOMITING; Start at 23:00 Levofloxacin (Levaquin) 250 mg DAILY@06 PO Last administered on 12/29/16 10:14 ; Admin Dose 250 MG; Start 12/29/16 at 06:00 Morphine Sulfate (morphine) 1 mg Q3H PRN IV PAIN LEVEL 4-6 Last administered on 12/29/16 16:59; Admin Dose 1 MG; Start 12/29/16 at 17:00 Lorazepam 0.25 mg 0.25 mg Q6H PRN IV ANXIETY Last administered on 12/29/16 16: 59; Admin Dose 0.25 MG; Start 12/29/16 at 17:00 Dextrose/Sodium Chloride (D5-1/2ns) 1,000 ml @ 100 mls/hr Q10H IV Last administered on 12/30/16 06:30; Admin Dose 100 MLS/HR; Start 12/29/16 at 20:30 JESSY OHARA NP Dec 30, 2016 13:21
[2016-12-30] MEDS: LORAZEPAM 2 MG INJ IV PRN (15:01)
[2016-12-30] MEDS: morphine 2 MG INJ IV PRN (15:05)
--- NOTE | 2016-12-30 16:47 | PN ---
Date/Time of Note Date/Time of Note DATE: 12/30/16 TIME: 16:43 Assessment/Plan VTE Prophylaxis VTE Prophylaxis Intervention: SCD's Lines/Catheters IV Catheter Type (from [facility]): PORT A CATH Urinary Cath still in place: No Assessment/Plan Chief Complaint/Hosp Course Patient is undergoing evaluation for home hospice, remains lethargic but easily arousable. Assessment/Plan - Sepsis with shock secondary to E. coli urinary tract infection, resolving. Continue Levaquin. Dr. Medina is following infection disease consultation. - Metastatic cervical cancer. Dr. Ruiz is following in oncology consultation. Dr. Jean Baptiste is following in palliative care services consultation. - Anemia secondary to malignancy. - Thrombocytopenia secondary to bone marrow suppression. - Hypercalcemia, status post zoledronate. - Acute protein calorie malnutrition. - Left lower extremity DVTs Eliquis is on hold due to thrombocytopenia. - DNR status Further recommendations based on clinical course. Plan of care discussed with Dr. Webster. Problems: Exam/Review of Systems Vital Signs Vitals Vital Signs Date Time Temp Pulse Resp B/P Pulse Ox O2 Delivery O2 Flow Rate FiO2 12/30/16 16:05 112 12/30/16 15:52 98.0 16 93/64 100 12/27/16 07:55 Room Air 12/27/16 00:00 Intake and Output 12/29/16 12/29/16 12/30/16 15:00 23:00 07:00 Intake Total 200 ml 720 ml Balance 200 ml 720 ml Exam Constitutional: frail, other (cachectic) Head: normocephalic Respiratory: normal air movement Cardiovascular: nl pulses Gastrointestinal: non-tender Extremities: normal pulses Results Result Diagram: 12/30/16 1146 12/30/16 1146 Results 24 hrs Laboratory Tests Test 12/30/16 11:46 White Blood Count 11.0 #H Red Blood Count 3.60 L Hemoglobin 12.1 Hematocrit 34.7 L Mean Corpuscular Volume 96.4 Mean Corpuscular Hemoglobin 33.6 H Mean Corpuscular Hemoglobin Concent 34.9 Red Cell Distribution Width 26.3 H Platelet Count 9 #*L Mean Platelet Volume Neutrophils % 88.0 H Lymphocytes % 5.0 L Monocytes % 5.0 Myelocytes % 1.0 H Promyelocytes % 1.0 H Nucleated Red Blood Cells % 2.0 H Neutrophils # 9.7 H Lymphocytes # 0.6 L Monocytes # 0.6 Myelocytes # 0.1 Promyelocytes # 0.1 Differential Comment MANUAL DIFF Platelet Estimate PLT APPEAR DECREASED Polychromasia OCCASIONAL Sodium Level 147 H Potassium Level 3.8 Chloride Level 118 H Carbon Dioxide Level 15 L Anion Gap 18 #H Blood Urea Nitrogen 35 H Creatinine 1.04 H Glucose Level 191 # Calcium Level 10.0 Medications Medications Current Medications Acetaminophen (Tylenol Tab) 500 mg Q4H PRN PO PAIN AND OR ELEVATED TEMP; Start 12/26/16 at 23:00 Ondansetron HCl (Zofran Inj) 4 mg Q4H PRN IV NAUSEA AND/OR VOMITING; Start at 23:00 Levofloxacin (Levaquin) 250 mg DAILY@06 PO Last administered on 12/29/16 10:14 ; Admin Dose 250 MG; Start 12/29/16 at 06:00 Morphine Sulfate (morphine) 1 mg Q3H PRN IV PAIN LEVEL 4-6 Last administered on 12/30/16 15:05; Admin Dose 1 MG; Start 12/29/16 at 17:00 Lorazepam 0.25 mg 0.25 mg Q6H PRN IV ANXIETY Last administered on 12/30/16 15: 01; Admin Dose 0.25 MG; Start 12/29/16 at 17:00 Dextrose/Sodium Chloride (D5-1/2ns) 1,000 ml @ 100 mls/hr Q10H IV Last administered on 12/30/16 06:30; Admin Dose 100 MLS/HR; Start 12/29/16 at 20:30 AMNA LUCERO Dec 30, 2016 16:47
[2016-12-31] VITALS (12 sets, daily range): BP systolic 86–100; BP diastolic 50–66; PULSE 95–105; RESP 16–20
[2016-12-31] MEDS: DEXTROSE 5%-0.45% NACL 1,000 ML IV SCH ×3 (02:30→22:26)
[2016-12-31] MEDS: LEVOFLOXACIN 250 MG TAB PO SCH (06:00)
[2016-12-31] MEDS: LORAZEPAM 2 MG INJ IV PRN (09:01)
[2016-12-31 11:14] LABS: ADD SCAN DIFF NO
[2016-12-31 11:31] LABS: ABNORMAL IP MESSAGE 1; HEMATOCRIT 29.5 % (37.0-47.0); HEMOGLOBIN 10.1 g/dl (12.0-16.0); MEAN CORPUSCULAR HEMOGLOBIN 33.7 pg (29.0-33.0); MEAN CORPUSCULAR HGB CONC 34.2 g/dl (32.0-37.0); MEAN CORPUSCULAR VOLUME 98.3 fl (82.0-101.0); RED CELL DISTRIBUTION WIDTH 26.2 % (11.5-14.5); WHITE BLOOD COUNT 15.4 10^3/ul (4.8-10.8)
[2016-12-31 11:37] LABS: CALCIUM 8.9 mg/dl (8.4-10.2); CREATININE 1.13 mg/dl (0.44-1.00); POTASSIUM 3.3 mmol/L (3.5-5.1)
[2016-12-31 11:44] LABS: PLATELET COUNT 3 10^3/UL (140-415)
[2016-12-31 12:51] LABS: LYMPHOCYTES # 0.2 10^3/ul (0.8-2.9); MONOCYTE # 0.5 10^3/ul (0.3-0.9); NEUTROPHIL # 13.2 10^3/ul (1.6-7.5); PLATELET ESTIMATE PLT APPEAR DECREASED
[2016-12-31] MEDS ORDERED: SOD CHLORIDE 0.9% 250 ML IV* ONE (12:56)
--- NOTE | 2016-12-31 12:59 | PN ---
Date/Time of Note Date/Time of Note DATE: 12/31/16 TIME: 12:58 Assessment/Plan VTE Prophylaxis VTE Prophylaxis Intervention: other Lines/Catheters [facility] port a cath Urinary Cath still in place: No Assessment/Plan Chief Complaint/Hosp Course - Sepsis with shock secondary to E. coli urinary tract infection, resolving. Continue Levaquin. Dr. Medina is following infection disease consultation. - Metastatic cervical cancer. Dr. Ruiz is following in oncology consultation. Dr. Jean Baptiste is following in palliative care services consultation. - Anemia secondary to malignancy. - Thrombocytopenia secondary to bone marrow suppression. - Hypercalcemia, status post zoledronate. - Acute protein calorie malnutrition. - Left lower extremity DVTs Eliquis is on hold due to thrombocytopenia. - DNR status Problems: Subjective 24 Hr Interval Summary Free Text/Dictation Patient is lethargic Exam/Review of Systems Vital Signs Vitals Vital Signs Date Time Temp Pulse Resp B/P Pulse Ox O2 Delivery O2 Flow Rate FiO2 12/31/16 12:06 98 12/31/16 11:32 98.1 16 94/64 99 12/27/16 07:55 Room Air Intake and Output 12/30/16 12/30/16 12/31/16 15:00 23:00 07:00 Intake Total 800 ml Balance 800 ml Exam Constitutional: well developed Head: atraumatic, normocephalic Neck: supple Respiratory: diminished breath sounds Cardiovascular: regular rate and rhythm Gastrointestinal: non-tender, soft Extremities: normal pulses Results Result Diagram: 12/31/16 1046 12/31/16 1046 Results 24 hrs Laboratory Tests Test 12/31/16 10:46 White Blood Count 15.4 #H Red Blood Count 3.00 L Hemoglobin 10.1 L Hematocrit 29.5 L Mean Corpuscular Volume 98.3 Mean Corpuscular Hemoglobin 33.7 H Mean Corpuscular Hemoglobin Concent 34.2 Red Cell Distribution Width 26.2 H Platelet Count 3 #*L Mean Platelet Volume Neutrophils % 86.0 H Band Neutrophils % 10.0 H Lymphocytes % 1.0 L Monocytes % 3.0 Eosinophils % Nucleated Red Blood Cells % 2.0 H Neutrophils # 13.2 H Lymphocytes # 0.2 L Monocytes # 0.5 Eosinophils # Platelet Estimate PLT APPEAR DECREASED Sodium Level 145 H Potassium Level 3.3 L Chloride Level 118 H Carbon Dioxide Level 13 L Anion Gap 17 H Blood Urea Nitrogen 36 H Creatinine 1.13 H Glucose Level 134 # Calcium Level 8.9 Medications Medications Current Medications Acetaminophen (Tylenol Tab) 500 mg Q4H PRN PO PAIN AND OR ELEVATED TEMP; Start 12/26/16 at 23:00 Ondansetron HCl (Zofran Inj) 4 mg Q4H PRN IV NAUSEA AND/OR VOMITING; Start at 23:00 Levofloxacin (Levaquin) 250 mg DAILY@06 PO Last administered on 12/29/16 10:14 ; Admin Dose 250 MG; Start 12/29/16 at 06:00 Morphine Sulfate (morphine) 1 mg Q3H PRN IV PAIN LEVEL 4-6 Last administered on 12/30/16 15:05; Admin Dose 1 MG; Start 12/29/16 at 17:00 Lorazepam 0.25 mg 0.25 mg Q6H PRN IV ANXIETY Last administered on 12/31/16 09: 01; Admin Dose 0.25 MG; Start 12/29/16 at 17:00 Dextrose/Sodium Chloride (D5-1/2ns) 1,000 ml @ 100 mls/hr Q10H IV Last administered on 12/31/16 02:30; Admin Dose 100 MLS/HR; Start 12/29/16 at 20:30 ZANDER BAILEY Dec 31, 2016 12:58
[2016-12-31] MEDS: LEVOFLOXACIN 250MG/D5W (PMX) 50 ML IVPB SCH (14:24)
[2017-01-01] VITALS (11 sets, daily range): BP systolic 80–122; BP diastolic 52–74; PULSE 83–92; RESP 16–22
[2017-01-01] MEDS ORDERED: SOD CHLORIDE 0.9% 500 ML IV ONE (04:50)
[2017-01-01] MEDS: morphine 2 MG INJ IV PRN (06:29)
[2017-01-01 07:31] LABS: ADD SCAN DIFF NO
[2017-01-01 07:57] LABS: ABNORMAL IP MESSAGE 1; HEMATOCRIT 26.3 % (37.0-47.0); HEMOGLOBIN 8.8 g/dl (12.0-16.0); MEAN CORPUSCULAR HEMOGLOBIN 33.2 pg (29.0-33.0); MEAN CORPUSCULAR HGB CONC 33.5 g/dl (32.0-37.0); MEAN CORPUSCULAR VOLUME 99.2 fl (82.0-101.0); RED BLOOD COUNT 2.65 10^6/ul (4.20-5.40); RED CELL DISTRIBUTION WIDTH 26.1 % (11.5-14.5); WHITE BLOOD COUNT 14.4 10^3/ul (4.8-10.8)
[2017-01-01 08:01] LABS: MEAN PLATELET VOLUME 10.5 fl (7.4-10.4); PLATELET COUNT 7 10^3/UL (140-415)
[2017-01-01 08:25] LABS: CALCIUM 8.3 mg/dl (8.4-10.2); CREATININE 1.19 mg/dl (0.44-1.00); POTASSIUM 3.3 mmol/L (3.5-5.1)
[2017-01-01] MEDS: DEXTROSE 5%-0.45% NACL 1,000 ML IV SCH ×3 (08:30→22:34)
[2017-01-01 09:17] LABS: ANISOCYTOSIS 1+; BASOPHIL # 0.1 10^3/ul (0.0-0.1); LYMPHOCYTES # 0.7 10^3/ul (0.8-2.9); NEUTROPHIL # 12.4 10^3/ul (1.6-7.5); PLATELET ESTIMATE PLT APPEAR DECREASED
[2017-01-01 09:18] LABS: PLATELETS CLUMPS RARE
--- NOTE | 2017-01-01 12:43 | PN ---
Date/Time of Note Date/Time of Note DATE: 01/01/17 TIME: 12:43 Assessment/Plan VTE Prophylaxis VTE Prophylaxis Intervention: other Lines/Catheters [facility]from [facility] port a cath Urinary Cath still in place: No Assessment/Plan Chief Complaint/Hosp Course - Sepsis with shock secondary to E. coli urinary tract infection, resolving. Continue Levaquin. Dr. Medina is following infection disease consultation. - Metastatic cervical cancer. Dr. Ruiz is following in oncology consultation. Dr. Jean Baptiste is following in palliative care services consultation. - Anemia secondary to malignancy. - Thrombocytopenia secondary to bone marrow suppression. - Hypercalcemia, status post zoledronate. - Acute protein calorie malnutrition. - Left lower extremity DVTs Eliquis is on hold due to thrombocytopenia. - DNR status Problems: Subjective 24 Hr Interval Summary Free Text/Dictation Patient more awake Exam/Review of Systems Vital Signs Vitals Vital Signs Date Time Temp Pulse Resp B/P Pulse Ox O2 Delivery O2 Flow Rate FiO2 01/01/17 12:26 87 01/01/17 11:50 97.2 22 107/63 96 Intake and Output 12/31/16 12/31/16 01/01/17 15:00 23:00 07:00 Intake Total 1650 ml 1200 ml Balance 1650 ml 1200 ml Exam Constitutional: frail Head: atraumatic, normocephalic Neck: supple Respiratory: diminished breath sounds Cardiovascular: regular rate and rhythm Gastrointestinal: non-tender, soft Extremities: normal pulses Results Result Diagram: 01/01/17 0614 01/01/17 0614 Results 24 hrs Laboratory Tests Test 01/01/17 05:24 01/01/17 06:14 Lab Scanned Report BLOOD TRANSFUSION White Blood Count 14.4 H Red Blood Count 2.65 L Hemoglobin 8.8 L Hematocrit 26.3 L Mean Corpuscular Volume 99.2 Mean Corpuscular Hemoglobin 33.2 H Mean Corpuscular Hemoglobin Concent 33.5 Red Cell Distribution Width 26.1 H Platelet Count 7 #*L Mean Platelet Volume 10.5 #H Neutrophils % 86.0 H Band Neutrophils % 8.0 H Lymphocytes % 5.0 L Eosinophils % Basophils % 1.0 Neutrophils # 12.4 H Lymphocytes # 0.7 L Eosinophils # Basophils # 0.1 Platelet Estimate PLT APPEAR DECREASED Clumped Platelets RARE Anisocytosis 1+ Sodium Level 144 Potassium Level 3.3 L Chloride Level 118 H Carbon Dioxide Level 10 L Anion Gap 19 H Blood Urea Nitrogen 39 H Creatinine 1.19 H Glucose Level 120 Calcium Level 8.3 L Medications Medications Current Medications Acetaminophen (Tylenol Tab) 500 mg Q4H PRN PO PAIN AND OR ELEVATED TEMP Last administered on 01/01/17 04:19; Admin Dose 500 MG; Start 12/26/16 at 23:00 Ondansetron HCl (Zofran Inj) 4 mg Q4H PRN IV NAUSEA AND/OR VOMITING; Start at 23:00 Morphine Sulfate (morphine) 1 mg Q3H PRN IV PAIN LEVEL 4-6 Last administered on 01/01/17 06:29; Admin Dose 1 MG; Start 12/29/16 at 17:00 Lorazepam 0.25 mg 0.25 mg Q6H PRN IV ANXIETY Last administered on 12/31/16 09: 01; Admin Dose 0.25 MG; Start 12/29/16 at 17:00 Dextrose/Sodium Chloride 1,000 ml @ 100 mls/hr Q10H IV Last administered on 22:26; Admin Dose 100 MLS/HR; Start 12/29/16 at 20:30 Levofloxacin/ Dextrose (Levaquin 250 Mg/ D5W 50 ml (Pmx)) 50 ml @ 50 mls/hr Q24H IVPB Last administered on 12/31/16 14:24; Admin Dose 50 MLS/HR; Start at 14:00 ZANDER BAILEY Jan 01, 2017 12:43
[2017-01-01] MEDS: LEVOFLOXACIN 250MG/D5W (PMX) 50 ML IVPB SCH (13:30)
[2017-01-02] VITALS (14 sets, daily range): BP systolic 56–93; BP diastolic 39–56; PULSE 69–76; RESP 15–26
[2017-01-02] MEDS ORDERED: SOD CHLORIDE 0.9% 500 ML IV ONE ×3 (04:30→08:30)
--- NOTE | 2017-01-02 08:32 | CONS ---
Date/Time of Note Date/Time of Note DATE: 01/02/17 TIME: 08:29 Consultation Date/Type/Reason Admit Date/Time Dec 26, 2016 at 19:38 Type of Consultation: Palliative care Reason for Consultation Postdated note for December 31 Referring Provider: RANI JACKSON MD 24 HR Interval Summary Free Text/Dictation No new changes since family conference. Suggest home with hospice care but encourage family members to pursue second opinions. Subjective hx not possible: pt non-verbal Constitutional: disoriented Exam/Review of Systems Vital Signs Vitals Vital Signs Date Time Temp Pulse Resp B/P Pulse Ox O2 Delivery O2 Flow Rate FiO2 01/02/17 08:22 73 01/02/17 07:40 97.6 20 70/42 97 Intake and Output 01/01/17 01/01/17 01/02/17 15:00 23:00 07:00 Intake Total 1660 ml 750 ml Balance 1660 ml 750 ml Exam Neck: non-tender, supple Respiratory: clear to auscultation, normal air movement Results Result Diagram: 01/01/1714 01/01/17613 Medications Medications Current Medications Acetaminophen (Tylenol Tab) 500 mg Q4H PRN PO PAIN AND OR ELEVATED TEMP Last administered on 01/01/17 04:19; Admin Dose 500 MG; Start 12/26/16 at 23:00 Ondansetron HCl (Zofran Inj) 4 mg Q4H PRN IV NAUSEA AND/OR VOMITING; Start at 23:00 Morphine Sulfate (morphine) 1 mg Q3H PRN IV PAIN LEVEL 4-6 Last administered on 01/01/17 06:29; Admin Dose 1 MG; Start 12/29/16 at 17:00 Lorazepam 0.25 mg 0.25 mg Q6H PRN IV ANXIETY Last administered on 12/31/16 09: 01; Admin Dose 0.25 MG; Start 12/29/16 at 17:00 Dextrose/Sodium Chloride 1,000 ml @ 100 mls/hr Q10H IV Last administered on 22:34; Admin Dose 100 MLS/HR; Start 12/29/16 at 20:30 Levofloxacin/ Dextrose 50 ml @ 50 mls/hr Q24H IVPB Last administered on 13:30; Admin Dose 50 MLS/HR; Start 12/31/16 at 14:00 Sodium Chloride (NS) 500 ml @ 500 mls/hr Q1H ONCE IV ; Start 01/02/17 at 08:30 ; Stop 01/02/17 at 09:29 HEATHER CABRERA Jan 02, 2017 08:32
--- NOTE | 2017-01-02 10:25 | CONS ---
Date/Time of Note Date/Time of Note DATE: 01/02/17 TIME: 10:22 Assessment/Plan Assessment/Plan Chief Complaint/Hosp Course The patient is a 61 year old female with end stage metastatic cervical cancer who has been receiving palliative XRT for her vaginal bleeding and is now admitted with severe anemia and urosepsis. It was explained to the patient's daughter that the patient has an extremely poor prognosis and is actively deteriorating. Pt is certainly not a candidate for any more chemotherapy or radiation at this time. The patient's daughter and 2 sons have verbalized understanding of her mother's declining condition. #Metastatic Cervical Cancer -pt is no longer a candidate for any cancer treatment -appreciate palliative care involvement with the family and making patient DNR/ DNI -family has agreed on hospice care at home once she is stable for discharge # Acute anemia likely secondary to her underlying malignancy and sepsis -pt responded well to 2 units of PRBCs -Hg currently stable # Urosepsis with GNR in urine -appreciate ID recs -pt is now on Levaquin # Severe thrombocytopenia, secondary to chemotherapy and bone marrow suppression from prior chemotherapy. No e/o DIC or TTP -transfuse 1 unit of platelets today -will monitor for now and transfuse if patient begins to bleed again #h/o LLE DVT -continue to hold Eliquis as platelets are less than 50K and she recently had a vaginal bleed Approximately 40 min were spent at patient's bedside and in coordination of her care Problems: Consultation Date/Type/Reason Admit Date/Time Dec 26, 2016 at 19:38 Initial Consult Date December 27, 2016 Type of Consultation: oncology Reason for Consultation metastatic cervical cancer Referring Provider: RANI JACKSON MD 24 HR Interval Summary Free Text/Dictation pt received 1 unit of platelet transfusion yesterday. no bleeding overnight. pt remains extremely lethargica and only minimally arousable Exam/Review of Systems Vital Signs Vitals Vital Signs Date Time Temp Pulse Resp B/P Pulse Ox O2 Delivery O2 Flow Rate FiO2 01/02/17 08:22 73 01/02/17 07:40 97.6 20 70/42 97 Intake and Output 01/01/17 01/01/17 01/02/17 15:00 23:00 07:00 Intake Total 1660 ml 750 ml Balance 1660 ml 750 ml Exam Constitutional: distress, frail, other (cacetic) Psych: anxiety, confusion Eyes: nl conjunctiva ENMT: nl external ears & nose, nl lips & teeth Neck: non-tender Respiratory: clear to auscultation Cardiovascular: nl pulses, regular rate and rhythm Gastrointestinal: soft Musculoskeletal: nl extremities to inspection Results Result Diagram: 01/01/1761301/01/17613 Medications Medications Current Medications Acetaminophen (Tylenol Tab) 500 mg Q4H PRN PO PAIN AND OR ELEVATED TEMP Last administered on 01/01/17 04:19; Admin Dose 500 MG; Start 12/26/16 at 23:00 Ondansetron HCl (Zofran Inj) 4 mg Q4H PRN IV NAUSEA AND/OR VOMITING; Start at 23:00 Morphine Sulfate (morphine) 1 mg Q3H PRN IV PAIN LEVEL 4-6 Last administered on 01/01/17 06:29; Admin Dose 1 MG; Start 12/29/16 at 17:00 Lorazepam 0.25 mg 0.25 mg Q6H PRN IV ANXIETY Last administered on 12/31/16 09: 01; Admin Dose 0.25 MG; Start 12/29/16 at 17:00 Dextrose/Sodium Chloride 1,000 ml @ 100 mls/hr Q10H IV Last administered on 22:34; Admin Dose 100 MLS/HR; Start 12/29/16 at 20:30 Levofloxacin/ Dextrose (Levaquin 250 Mg/ D5W 50 ml (Pmx)) 50 ml @ 50 mls/hr Q24H IVPB Last administered on 01/01/17 13:30; Admin Dose 50 MLS/HR; Start at 14:00 DIONISIO ZALDIVAR M.D. Jan 02, 2017 10:25
[2017-01-02] MEDS: DEXTROSE 5%-0.45% NACL 1,000 ML IV SCH (10:32)
[2017-01-02] MEDS: LEVOFLOXACIN 250MG/D5W (PMX) 50 ML IVPB SCH (13:38)
--- NOTE | 2017-01-02 13:54 | CONS ---
Date/Time of Note Date/Time of Note DATE: 01/02/17 TIME: 13:53 Assessment/Plan Assessment/Plan Chief Complaint/Hosp Course SUBJECTIVE: No acute changes. Lethargic, hypotensive, nad, family at bedside ANTIMICROBIALS: Levaquin DIAGNOSTICS: Chest x-ray on admission revealed no pneumonia. INDWELLINGS: Right chest Port-A-Cath. PHYSICAL EXAMINATION: GENERAL: This is a cachectic, terminally ill-appearing, middle-aged woman who is in no distress. HEENT: Head atraumatic, normocephalic. Sclerae anicteric. Buccal mucosa dry. NECK: Supple, trachea midline. CHEST: Rise symmetrical. Breath sounds diminished. HEART: S1, S2. ABDOMEN: Soft, bowel sounds present. EXTREMITIES: Without cyanosis. ASSESSMENT: 1. Urinary tract infection with urine culture growing Escherichia coli susceptible to all antibiotics. 2. Metastatic cervical cancer. 3. Acute on chronic anemia. 4. Thrombocytopenia. 5. History of left lower extremity deep venous thrombosis. 6. Severe cachexia. PLAN: Clinically unchanged, continue abx, supportive care [facility] staff Problems: Consultation Date/Type/Reason Admit Date/Time Dec 26, 2016 at 19:38 Type of Consultation: id Referring Provider: RANI JACKSON MD Exam/Review of Systems Vital Signs Vitals Vital Signs Date Time Temp Pulse Resp B/P Pulse Ox O2 Delivery O2 Flow Rate FiO2 01/02/17 12:09 73 01/02/17 11:41 97.6 26 66/40 97 Intake and Output 01/01/17 01/01/17 01/02/17 15:00 23:00 07:00 Intake Total 1660 ml 750 ml Balance 1660 ml 750 ml Results Result Diagram: 01/01/17 0614 01/01/17 0614 Medications Medications Current Medications Acetaminophen (Tylenol Tab) 500 mg Q4H PRN PO PAIN AND OR ELEVATED TEMP Last administered on 01/01/17 04:19; Admin Dose 500 MG; Start 12/26/16 at 23:00 Ondansetron HCl (Zofran Inj) 4 mg Q4H PRN IV NAUSEA AND/OR VOMITING; Start at 23:00 Morphine Sulfate (morphine) 1 mg Q3H PRN IV PAIN LEVEL 4-6 Last administered on 01/01/17 06:29; Admin Dose 1 MG; Start 12/29/16 at 17:00 Lorazepam 0.25 mg 0.25 mg Q6H PRN IV ANXIETY Last administered on 12/31/16 09: 01; Admin Dose 0.25 MG; Start 12/29/16 at 17:00 Dextrose/Sodium Chloride 1,000 ml @ 100 mls/hr Q10H IV Last administered on 10:32; Admin Dose 100 MLS/HR; Start 12/29/16 at 20:30 Levofloxacin/ Dextrose (Levaquin 250 Mg/ D5W 50 ml (Pmx)) 50 ml @ 50 mls/hr Q24H IVPB Last administered on 01/02/17 13:38; Admin Dose 50 MLS/HR; Start at 14:00 JESSY OHARA NP Jan 02, 2017 13:54
--- NOTE | 2017-01-02 15:57 | PN ---
Date/Time of Note Date/Time of Note DATE: 01/02/17 TIME: 15:54 Assessment/Plan VTE Prophylaxis VTE Prophylaxis Intervention: contraindicated VTE Contraindication Reason: thrombocytopenia Lines/Catheters IV [facility] (from [facility] Port a Cath Urinary Cath still in place: No Assessment/Plan Chief Complaint/Hosp Course Patient's condition is deteriorating, hypotensive, lethargic. Assessment/Plan - Sepsis with shock secondary to E. coli urinary tract infection, resolving. Continue Levaquin. Dr. Medina is following infection disease consultation. - Metastatic cervical cancer. Dr. Ruiz is following in oncology consultation. Dr. Jean Baptiste is following in palliative care services consultation. - Anemia secondary to malignancy. - Thrombocytopenia secondary to bone marrow suppression. - Hypercalcemia, status post zoledronate. - Acute protein calorie malnutrition. - Left lower extremity DVTs Eliquis is on hold due to thrombocytopenia. - DNR status Further recommendations based on clinical course. Plan of care discussed with Dr. Webster. Problems: Exam/Review of Systems Vital Signs Vitals Vital Signs Date Time Temp Pulse Resp B/P Pulse Ox O2 Delivery O2 Flow Rate FiO2 01/02/17 15:48 96.4 99 21 84/50 100 Intake and Output 01/01/17 01/01/17 01/02/17 15:00 23:00 07:00 Intake Total 1660 ml 750 ml Balance 1660 ml 750 ml Exam Constitutional: frail, other (cachectic) Head: normocephalic Respiratory: normal air movement Cardiovascular: nl pulses Gastrointestinal: non-tender Extremities: normal pulses Results Result Diagram: 01/01/1761301/01/17613 Medications Medications Current Medications Acetaminophen (Tylenol Tab) 500 mg Q4H PRN PO PAIN AND OR ELEVATED TEMP Last administered on 01/01/17 04:19; Admin Dose 500 MG; Start 12/26/16 at 23:00 Ondansetron HCl (Zofran Inj) 4 mg Q4H PRN IV NAUSEA AND/OR VOMITING; Start at 23:00 Morphine Sulfate (morphine) 1 mg Q3H PRN IV PAIN LEVEL 4-6 Last administered on 01/01/17 06:29; Admin Dose 1 MG; Start 12/29/16 at 17:00 Lorazepam 0.25 mg 0.25 mg Q6H PRN IV ANXIETY Last administered on 12/31/16 09: 01; Admin Dose 0.25 MG; Start 12/29/16 at 17:00 Dextrose/Sodium Chloride 1,000 ml @ 100 mls/hr Q10H IV Last administered on 10:32; Admin Dose 100 MLS/HR; Start 12/29/16 at 20:30 Levofloxacin/ Dextrose (Levaquin 250 Mg/ D5W 50 ml (Pmx)) 50 ml @ 50 mls/hr Q24H IVPB Last administered on 01/02/17 13:38; Admin Dose 50 MLS/HR; Start at 14:00 AMNA LUCERO Jan 02, 2017 15:57
--- NOTE | 2017-01-02 16:18 | CONS ---
Date/Time of Note Date/Time of Note DATE: 01/02/17 TIME: 16:07 Assessment/Plan Assessment/Plan Additional Assessment/Plan Spoke with family members ... they want to take mom home on Hospice Care when she can take oral ATB's. They've requested a [facility] speaking Hospice prior but now changed their minds to Hospice that we recommend. I have deferred to Dr Ziegler . They are realistic in that she will probably before getting second opinions but I reinforced that she may not live another week. They want to her to at home with family... All PC issues addressed with them in the face to face meeting on Monday. Consultation Date/Type/Reason Admit Date/Time Dec 26, 2016 at 19:38 Type of Consultation: id Referring Provider: RANI JACKSON MD Exam/Review of Systems Vital Signs Vitals Vital Signs Date Time Temp Pulse Resp B/P Pulse Ox O2 Delivery O2 Flow Rate FiO2 01/02/17 12:09 73 01/02/17 11:41 97.6 66/40 97 Intake and Output 01/01/17 01/01/17 01/02/17 15:00 23:00 07:00 Intake Total 1660 ml 750 ml Balance 1660 ml 750 ml Exam Constitutional: frail, non-verbal Respiratory: diminished breath sounds, intercostal retraction Cardiovascular: nl pulses, regular rate and rhythm Neurological: other (minimally responsive to verbal... lethargic no gross focal changes) Results Result Diagram: 01/01/17 0614 01/01/17613 Medications Medications Current Medications Acetaminophen (Tylenol Tab) 500 mg Q4H PRN PO PAIN AND OR ELEVATED TEMP Last administered on 01/01/17 04:19; Admin Dose 500 MG; Start 12/26/16 at 23:00 Ondansetron HCl (Zofran Inj) 4 mg Q4H PRN IV NAUSEA AND/OR VOMITING; Start at 23:00 Morphine Sulfate (morphine) 1 mg Q3H PRN IV PAIN LEVEL 4-6 Last administered on 01/01/17 06:29; Admin Dose 1 MG; Start 12/29/16 at 17:00 Lorazepam 0.25 mg 0.25 mg Q6H PRN IV ANXIETY Last administered on 12/31/16 09: 01; Admin Dose 0.25 MG; Start 12/29/16 at 17:00 Dextrose/Sodium Chloride 1,000 ml @ 100 mls/hr Q10H IV Last administered on 10:32; Admin Dose 100 MLS/HR; Start 12/29/16 at 20:30 Levofloxacin/ Dextrose (Levaquin 250 Mg/ D5W 50 ml (Pmx)) 50 ml @ 50 mls/hr Q24H IVPB Last administered on 01/02/17 13:38; Admin Dose 50 MLS/HR; Start at 14:00 HEATHER CABRERA Jan 02, 2017 16:17
[2017-01-03] VITALS (10 sets, daily range): BP systolic 54–76; BP diastolic 32–46; PULSE 55–65; RESP 12–22
[2017-01-03] MEDS: DEXTROSE 5%-0.45% NACL 1,000 ML IV SCH ×2 (00:38→14:53)
[2017-01-03] MEDS: LEVOFLOXACIN 250MG/D5W (PMX) 50 ML IVPB SCH (14:56)
--- NOTE | 2017-01-03 21:23 | CONS ---
Date/Time of Note Date/Time of Note DATE: 01/03/17 TIME: 21:23 Assessment/Plan Assessment/Plan Chief Complaint/Hosp Course SUBJECTIVE: No changes. Lethargic, nad, family at bedside ANTIMICROBIALS: Levaquin DIAGNOSTICS: Chest x-ray on admission revealed no pneumonia. INDWELLINGS: Right chest Port-A-Cath. PHYSICAL EXAMINATION: GENERAL: This is a cachectic, terminally ill-appearing, middle-aged woman who is in no distress. HEENT: Head atraumatic, normocephalic. Sclerae anicteric. Buccal mucosa dry. NECK: Supple, trachea midline. CHEST: Rise symmetrical. Breath sounds diminished. HEART: S1, S2. ABDOMEN: Soft, bowel sounds present. EXTREMITIES: Without cyanosis. ASSESSMENT: 1. Urinary tract infection with urine culture growing Escherichia coli susceptible to all antibiotics. 2. Metastatic cervical cancer. 3. Acute on chronic anemia. 4. Thrombocytopenia. 5. History of left lower extremity deep venous thrombosis. 6. Severe cachexia. PLAN: Clinically unchanged, continue abx, supportive care [facility] staff Problems: Consultation Date/Type/Reason Admit Date/Time Dec 26, 2016 at 19:38 Type of Consultation: id Referring Provider: RANI JACKSON MD Exam/Review of Systems Vital Signs Vitals Vital Signs Date Time Temp Pulse Resp B/P Pulse Ox O2 Delivery O2 Flow Rate FiO2 01/03/17 16:00 55 01/03/17 15:59 12 96 01/03/17 11:51 54/32 01/03/17 07:55 Intake and Output 01/02/17 01/02/17 01/03/17 15:00 23:00 07:00 Intake Total 50 ml 1100 ml Balance 50 ml 1100 ml Results Result Diagram: 01/01/17 0614 01/01/17 0614 Results 24 hrs Laboratory Tests Test 01/03/17 05:19 Lab Scanned Report BLOOD TRANSFUSION Medications Medications Current Medications Acetaminophen (Tylenol Tab) 500 mg Q4H PRN PO PAIN AND OR ELEVATED TEMP Last administered on 01/01/17t 04:19; Admin Dose 500 MG; Start 12/26/16 at 23:00 Ondansetron HCl (Zofran Inj) 4 mg Q4H PRN IV NAUSEA AND/OR VOMITING; Start at 23:00 Morphine Sulfate (morphine) 1 mg Q3H PRN IV PAIN LEVEL 4-6 Last administered on 01/01/17 06:29; Admin Dose 1 MG; Start 12/29/16 at 17:00 Lorazepam 0.25 mg 0.25 mg Q6H PRN IV ANXIETY Last administered on 12/31/16 09: 01; Admin Dose 0.25 MG; Start 12/29/16 at 17:00 Dextrose/Sodium Chloride 1,000 ml @ 100 mls/hr Q10H IV Last administered on 14:53; Admin Dose 100 MLS/HR; Start 12/29/16 at 20:30 Levofloxacin/ Dextrose (Levaquin 250 Mg/ D5W 50 ml (Pmx)) 50 ml @ 50 mls/hr Q24H IVPB Last administered on 01/03/17 14:56; Admin Dose 50 MLS/HR; Start at 14:00 JESSY OHARA NP Jan 03, 2017 21:23
--- NOTE | 2017-01-06 20:24 | DES ---
Date/Time of Note Date/Time of Note DATE: 01/06/17 TIME: 20:21 Discharge/ Summary Admission/Discharge Info Admit Date/Time Dec 26, 2016 at 19:38 Discharge Date/Time Jan 03, 2017 at 21:15 Final Diagnosis - Sepsis with shock secondary to E. coli urinary tract infection, resolving. Continue Levaquin. Dr. Medina is following infection disease consultation. - Metastatic cervical cancer. Dr. Ruiz is following in oncology consultation. Dr. Jean Baptiste is following in palliative care services consultation. - Anemia secondary to malignancy. - Thrombocytopenia secondary to bone marrow suppression. - Hypercalcemia, status post zoledronate. - Acute protein calorie malnutrition. - Left lower extremity DVTs Eliquis is on hold due to thrombocytopenia. - DNR status Preliminary Cause of Metastatic cervical cancer Hospital Course Sepsis with shock secondary to E. coli urinary tract infection, resolving. Continue Levaquin. Dr. Medina is following infection disease consultation. - Metastatic cervical cancer. Dr. Ruiz is following in oncology consultation. Dr. Jean Baptiste is following in palliative care services consultation. Plan is for home hospice. - Anemia secondary to malignancy. - Thrombocytopenia secondary to bone marrow suppression. - Hypercalcemia, status post zoledronate. - Acute protein calorie malnutrition. - Left lower extremity DVTs Eliquis is on hold due to thrombocytopenia. - DNR status AMNA LUCERO Jan 06, 2017 20:24
== END 2017-01-03 21:15 | disposition expired | DRG 871 ==
LOC: E/R 16:38 → MS4 19:38
PROVIDERS: ADMIT Internal Medicine; ATTEND Internal Medicine
DX: A41.9 Sepsis, unspecified organism (principal); R65.21 Severe sepsis with septic shock; E43 Unspecified severe protein-calorie malnutrition; R64 Cachexia; C79.9 Secondary malignant neoplasm of unspecified site; D69.59 Other secondary thrombocytopenia; N39.0 Urinary tract infection, site not specified; Z68.1 Body mass index [BMI] 19.9 or less, adult; E83.52 Hypercalcemia; E86.0 Dehydration; C53.9 Malignant neoplasm of cervix uteri, unspecified; D63.0 Anemia in neoplastic disease; T45.1X5A Adverse effect of antineoplastic and immunosuppressive drugs, initial encounter; Y92.89 Other specified places as the place of occurrence of the external cause; R41.0 Disorientation, unspecified; B96.20 Unspecified Escherichia coli [E. coli] as the cause of diseases classified elsewhere; Z66 Do not resuscitate; Z86.718 Personal history of other venous thrombosis and embolism
CPT/HCPCS: 36415; 36430; 71010; 80048; 80053; 80202; 81001; 81003; 83605; 84484; 85025; 85610; 85730; 86644; 86850; 86900; 86901; 86920; 86945; 87040; 87086; 93005; 96374; 96375; J3487; J1956; J2060; J2185; J2270; J2310; J2543; J3370; J7030; J7040; J7042; P9016; P9035; P9612